=== PATIENT | male | born 1935 | race Caucasian/White ===

== ENCOUNTER 2016-03-28 17:21 | Emergency (ER) | payer MEDICARE ==
[~2016-03-28] VITALS: Ht 180.3 cm; Wt 65.0 kg
[~2016-03-28 17:21] MED LIST: AMIO200T PO; COMB0.2S LEFT EYE; DIAL800T3 PO; DILT180C56 PO; DORZ2SOL LEFT EYE; ENAL2.5T PO; FISH500C PO; LEVO50TA4 PO; METO50TA11 PO; OMEP20CA2 PO; PHOS667C5 PO; ROPI5TAB PO; WARF-23 PO
[2016-03-28 17:25] VITALS: BP 137/61; PULSE 80; RESP 20; TEMP 97.4; O2SAT 91
[2016-03-28] MEDS ORDERED: ACETAMINOPHEN/HYDROcodone 325 MG/5 MG TAB PO ONE (18:00)
--- NOTE | 2016-03-28 18:25 | PD ---
HPI Chief Complaint: Musculoskeletal Complaint Time Seen by Provider: 17:46 Travel History International Travel<30 days: No Contact w/Intl Traveler<30days: No Traveled to known affect area: No History of Present Illness HPI 80-year-old male with multiple medical issues, presents to the ER today because he states that his medial left elbow has been swelling for 2 days. He states this started on his own. He had been seen at [place] [facility] and had been told that they think it is a bursitis and that he needs to follow-up with orthopedics. However, patient states he has not been able to follow-up he adds and it is more swollen now. 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) Blood Disorders: No Heart Rhythm Problems: Yes (HX AFIB; tachy-alka) Cancer: Yes (LT EAR BASAL CELL CARCINOMA) Cardiovascular Problems: Yes (A FIB) High Cholesterol: No Chemotherapy: No Chest Pain: No Congestive Heart Failure: Yes Cerebrovascular Accident: No Diabetes: No Dialysis: Yes (MON,WED,FRI) Diminished Hearing: Yes Endocrine: No Gastrointestinal Disorders: No Genitourinary: Yes (KIDNEY FAILURE) Headaches: No Hepatitis: No Hiatal Hernia: No Hypertension: Yes Immune Disorder: No Implanted Vascular Access Dvce: Yes (DIALYSIS AV TO RIGHT UPPER ARM) Kidney Stones: No Medical other: Yes (ANEMIA) Musculoskeletal: Yes (RESTLESS LEG SYNDROME) Neurologic: No Psychiatric: No Reproductive: No Respiratory: No Immunizations Current: No Radiation Therapy: No Renal Failure: Yes Seizures: No Thyroid Disease: Yes (HYPOTHYROID, HYPERPARATHYROID) PNEUMOCCOCAL Vaccine (Year): 2010 Past Surgical History Abdominal Surgery: Yes (COLECTOMY DUE TO CANCER POLYP) AICD: No Appendectomy: Yes Arteriovenous Shunt: Yes Cardiac Surgery: Yes (ABLATION 06/09 AND 01/09, [facility] PACEM[facility]) Cholecystectomy: Yes Ear Surgery: Yes (LEFT EAR-PUS NODULE) Endocrine Surgery: No Eye Surgery: No Genitourinary Surgery: No Gynecologic Surgery: No Insulin Pump: No Joint Replacement: Yes (FEMORAL HIP RIGHT) Oral Surgery: Yes (DENTURES UPPER AND LOWER PARTIAL) Pacemaker: Yes Thoracic Surgery: Yes Other Surgery: Yes (R HIP, COLONECTOMY, R. ARM FISTULA ) Social History Alcohol Use: No Tobacco Use: No Substance Use: No Allergies-Medications (Allergen,Severity, Reaction): Coded Allergies: Clindamycin (Verified Allergy, Severe, Rash, 03/28/16) Reported Meds & Prescriptions Reported Meds & Active Scripts Active Dorzolamide Opth Drops (Dorzolamide HCl) 2% Soln 1 Drop LEFT EYE BID Combigan Opth Drops (Brimonidine-Timolol Opth Drops) 0.2-0.5% Soln 1 Drop LEFT EYE Q12HR Reported Dorzolamide Opth Drops (Dorzolamide HCl) 2% Soln 1 Drop LEFT EYE BID Combigan Opth Drops (Brimonidine-Timolol Opth Drops) 0.2-0.5% Soln 1 Drop LEFT EYE BID Phoslo (Calcium Acetate (Phosphate Binder)) 667 Mg Cap 1 Cap PO TID Fish Oil ([place]-3 Fatty Acids) 500 Mg Cap 600 Mg PO BID Omeprazole 20 Mg Cap 1 Cap PO DAILY Levothyroxine (Levothyroxine Sodium) 50 Mcg Tab 1 Tab PO DAILY Dialyvite 800 (B-Complex W/ C & Folic Acid) 1 Tab 1 Tab PO DAILY Enalapril (Enalapril Maleate) 2.5 Mg Tab 1 Tab PO DAILY Amiodarone (Amiodarone HCl) 200 Mg Tab 1 Tab PO BID Diltiazem CD 24 HR 180 Mg Caper 1 Cap PO BID Ropinirole 5 Mg Tab 2 Tab PO TID Metoprolol Succinate ER 24 HR (Metoprolol Succinate) 50 Mg Tab 0.5 Tab PO BID Warfarin 5 Mg Tab 1 Tab PO DAILY Review of Systems Except as stated in HPI: all other systems reviewed are Neg Physical Exam Narrative GENERAL: Well-nourished, well-developed elderly white male patient in no acute distress. SKIN: Warm and dry. HEAD: Normocephalic. EYES: No scleral icterus. No injection or drainage. NECK: Supple, trachea midline. CARDIOVASCULAR: Regular rate and rhythm without murmurs, gallops, or rubs. RESPIRATORY: Breath sounds equal bilaterally. No accessory muscle use. GASTROINTESTINAL: Abdomen soft, non-tender, nondistended. MUSCULOSKELETAL: No cyanosis, or edema. BACK: Nontender without obvious deformity. No CVA tenderness. Left elbow: There is notable mild fullness and tenderness on palpation at the medial left elbow. Nontender range of motion of the elbow joint. Nontender palpation of the elbow joint. However, there is point tenderness at the medial epicondyle area. No underlying fluctuance. Data Data Last Documented VS Vital Signs Date Time Temp Pulse Resp B/P Pulse Ox O2 Delivery O2 Flow Rate FiO2 03/28/16 17:25 97.4 80 20 137/61 91 Room Air Orders Acetamin-Hydrocod 325-5 Mg ([place]yer 5-325 (03/28/16 18:00) Elbow, Complete (4 Vws) (03/28/16 17:46) [facility] Medical Decision Making Medical Screen Exam Complete: Yes Emergency Medical Condition: Yes Medical Record Reviewed: Yes Interpretation(s) Last 24 hours Impressions Elbow X-Ray 03/28/16 862 Signed Impressions: Service Date/Time: Wednesday, March 28, 2016 18:13 - CONCLUSION: There is a moderate-sized elbow effusion. No definite fracture seen, but the presence of an elbow effusion has positive predictive value for radiographically occult fracture. There is also some ill-defined calcification or ossification soft tissues anterior to the distal humerus which may represent an avulsed fragment. Junior Tolliver MD Differential Diagnosis Left elbow pain, swellingarthritis versus bursitis versus tendinitis versus abscess Narrative Course X-rays did not show obvious acute fractures although cold fractures cannot be ruled out. He does have some significant edema in the area of the medial epicondyles and there is suspicion of underlying tendinitis. At this point, my plan would be to place him in a sling and give him symptomatic relief. He will need to follow-up with orthopedics. Return for any worsening in pain, or new symptoms as needed. The plan has been discussed with him and he states understanding. Diagnosis Primary Impression: PAIN IN LEFT ELBOW Referrals: Kurt Biswas Jr., MD Med/Other Pt SpecificInfo: Prescription(s) given Scripts Tramadol 50 Mg Tab50 Mg PO Q4H PRN (PAIN) #15 TAB Ref 0 Prov:Shannon Jose MD 03/28/16 Disposition: 01 DISCHARGE HOME Condition: Stable Shannon Jose MD Mar 28, 2016 18:25
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
[2016-03-28] MEDS ORDERED: TRAM50TA PO (18:57)
[2016-05-28] MEDS ORDERED: ENAL5TAB PO (11:34)
[2016-05-28] MEDS ORDERED: ALPH1CAP PO (11:34)
[2016-05-28] MEDS ORDERED: VITA250T3 PO (11:34)
[2016-05-28] MEDS ORDERED: ROPI2 PO (11:34)
== END 2016-03-28 19:27 | disposition home or self-care (01) ==
LOC: NEPA 17:21
DX: M25.522 Pain in left elbow (principal)
CPT/HCPCS: 73080; 99283

== ENCOUNTER 2016-04-20 22:54 | Emergency (ER) | payer MEDICARE ==
[~2016-04-20] VITALS: Ht 180.3 cm; Wt 63.0 kg
[~2016-04-20 22:54] MED LIST changes: +TRAM50TA PO
[2016-04-20 22:57] VITALS: BP 142/66; PULSE 59; RESP 16; TEMP 98.2; O2SAT 98
[2016-05-28] MEDS ORDERED: ROPI2 PO (11:34)
[2016-05-28] MEDS ORDERED: ENAL5TAB PO (11:34)
[2016-05-28] MEDS ORDERED: ALPH1CAP PO (11:34)
[2016-05-28] MEDS ORDERED: VITA250T3 PO (11:34)
== END 2016-04-21 00:17 | disposition left against medical advice (07) ==
LOC: NED 22:54
DX: R68.89 Other general symptoms and signs (principal)
CPT/HCPCS: 99281

== ENCOUNTER → 2016-06-29 | Outpatient (CLI) | payer MEDICARE ==
[~2016-06-29] MED LIST changes: +ALPH1CAP PO; -ENAL2.5T PO; +ENAL5TAB PO; +ROPI2 PO; -ROPI5TAB PO; +VITA250T3 PO
[2016-06-29 12:11] LABS: HEMATOCRIT 32.3 % (39.0-51.0); MEAN CORPUSCULAR HEMOGLOBIN 32.8 PG (27.0-34.0); MEAN CORPUSCULAR HGB CONC 32.8 % (32.0-36.0); PLATELET COUNT 174 TH/MM3 (150-450); RED BLOOD COUNT 3.23 MIL/MM3 (4.50-5.90); RED CELL DISTRIBUTION WIDTH 15.1 % (11.6-17.2); REVIEW FLAG FINAL; WHITE BLOOD COUNT 5.7 TH/MM3 (4.0-11.0)
[2016-06-29 12:19] LABS: ANION GAP 10 MEQ/L (5-15); AST (GOT) 27 U/L (15-37); BICARBONATE 29.3 MEQ/L (21.0-32.0); BLOOD UREA NITROGEN 16 MG/DL (7-18); CHLORIDE 100 MEQ/L (98-107); GLUCOSE,FASTING 80 MG/DL (74-99); POTASSIUM 3.1 MEQ/L (3.5-5.1); SODIUM (NA) 139 MEQ/L (136-145)
[2016-06-29 12:30] LABS: ALKALINE PHOSPHATASE 130 U/L (45-117); ALT (GPT) 22 U/L (12-78); GLOMERULAR FILTRATION RATE 21 ML/MIN (>89); HDL CHOLESTEROL 51.3 MG/DL (40.0-60.0); LDL CHOLESTEROL 88 MG/DL (0-99); TOTAL BILIRUBIN ADULT 0.5 MG/DL (0.2-1.0)
== END ==
LOC: ELAB 10:29
PROVIDERS: ATTEND Family Medicine
DX: I48.91 Unspecified atrial fibrillation (principal); I12.0 Hypertensive chronic kidney disease with stage 5 chronic kidney disease or end stage renal disease; N18.5 Chronic kidney disease, stage 5; D63.1 Anemia in chronic kidney disease; E03.9 Hypothyroidism, unspecified; K76.0 Fatty (change of) liver, not elsewhere classified; E21.3 Hyperparathyroidism, unspecified; Z79.01 Long term (current) use of anticoagulants
CPT/HCPCS: 36415; 80053; 80061; 83970; 84443; 85027

== ENCOUNTER → 2016-09-07 | Outpatient (CLI) | payer MEDICARE | LOC: ELAB 10:55 | PROVIDERS: ATTEND Orthopaedic Surgery Orthopaedic Surgery of the Spine | DX: Z13.820 Encounter for screening for osteoporosis (principal) | CPT/HCPCS: 36415; 82306; 82310; 84100 ==

== ENCOUNTER 2016-11-10 08:19 | Emergency (ER) | payer MEDICARE ==
[~2016-11-10] VITALS: Ht 182.9 cm; Wt 67.0 kg
[~2016-11-10 08:19] MED LIST changes: +CALC1CAP PO; +CARD180C5 PO; -DILT180C56 PO; -PHOS667C5 PO
[2016-11-10 08:24] VITALS: BP 157/72; PULSE 81; RESP 17; TEMP 97.6; O2SAT 97
[2016-11-10 09:19] LABS: BICARBONATE 25.5 MEQ/L (21.0-32.0); POTASSIUM 4.2 MEQ/L (3.5-5.1)
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
--- NOTE | 2016-11-11 22:02 | EKG ---
Date Performed: 11/10/2016 Time Performed: 09:21:29 PTAGE: 80 years EKG: ELECTRONIC VENTRICULAR PACEMAKER ABNORMAL RHYTHM ECG PREVIOUS TRACING : 02/21/2015 08.09 Compared to the previous tracing paced rhythm present DOCTOR: Adrian Freeman Interpretating Date/Time 11/11/2016 22:02:13
== END 2016-11-10 10:04 | disposition home or self-care (01) ==
LOC: NEPC 08:19
DX: I13.2 Hypertensive heart and chronic kidney disease with heart failure and with stage 5 chronic kidney disease, or end stage renal disease (principal); N18.6 End stage renal disease; I50.9 Heart failure, unspecified; Z99.2 Dependence on renal dialysis; R94.31 Abnormal electrocardiogram [ECG] [EKG]; Z79.01 Long term (current) use of anticoagulants; D64.9 Anemia, unspecified
CPT/HCPCS: 80048; 93005; 99284

== ENCOUNTER 2017-02-14 01:36 | Emergency (ER) | payer MEDICARE ==
[~2017-02-14] VITALS: Ht 177.8 cm; Wt 65.9 kg
[~2017-02-14 01:36] MED LIST changes: -ALPH1CAP PO; +ALPH200C4 PO; +METO1TAB9 PO; -METO50TA11 PO
[2017-02-14 01:40] VITALS: BP 129/68; PULSE 109; RESP 18; TEMP 98.9; O2SAT 99
[2017-02-14] MEDS ORDERED: SULFAMETHOXAZOLE-TRIMETHOPRIM DS 800-160 MG TAB PO ONE (02:15)
[2017-02-14] MEDS ORDERED: DILTIAZEM HCL 60 MG TAB PO ONE (02:15)
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
[2017-02-14] MEDS ORDERED: BACT800T5 PO (02:44)
[2017-02-14 02:49] VITALS: PULSE 88; RESP 18; O2SAT 97
== END 2017-02-14 03:11 | disposition home or self-care (01) ==
LOC: NEPC 01:36
DX: L03.113 Cellulitis of right upper limb (principal); R00.0 Tachycardia, unspecified; I48.2 Chronic atrial fibrillation; D64.9 Anemia, unspecified; I48.91 Unspecified atrial fibrillation; I13.0 Hypertensive heart and chronic kidney disease with heart failure and stage 1 through stage 4 chronic kidney disease, or unspecified chronic kidney disease; I50.9 Heart failure, unspecified; N18.9 Chronic kidney disease, unspecified; E03.9 Hypothyroidism, unspecified
CPT/HCPCS: 99283

== ENCOUNTER 2017-03-11 09:20 | Emergency (ER) | payer MEDICARE ==
[~2017-03-11] VITALS: Ht 182.9 cm; Wt 70.0 kg
[~2017-03-11 09:20] MED LIST changes: +BACT800T5 PO; -TRAM50TA PO
[2017-03-11 09:22] VITALS: BP 154/57; PULSE 118; RESP 20; TEMP 99.3; O2SAT 99
--- NOTE | 2017-03-11 10:05 | PD ---
HPI Chief Complaint: Injury Time Seen by Provider: 09:42 Travel History International Travel<30 days: No Contact w/Intl Traveler<30days: No Traveled to known affect area: No History of Present Illness HPI 81-year-old male here with left foot and ankle pain after twisting injury. Patient reports he awoke at 4 AM with left foot pain after he believes he had a minor twisting injury the day before. He denies falling or loss of consciousness. He denies paresthesia or weakness of the extremity. He has pain with weightbearing and palpation of the dorsal aspect of the foot and lateral malleolus. Pain severity is moderate. Slightly relieved with rest. No pain improvement with [id number] Tylenol. He denies headache, visual changes, neck pain, chest pain, shortness of breath, abdominal pain. PFSH Past Medical History Narrative Medical Significant for A. 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) Blood Disorders: No Heart Rhythm Problems: Yes (HX AFIB; tachy-alka) Cancer: Yes (LT EAR BASAL CELL CARCINOMA) Cardiovascular Problems: Yes (A FIB, ) High Cholesterol: No Chemotherapy: No Chest Pain: No Congestive Heart Failure: Yes Cerebrovascular Accident: No Diabetes: No Dialysis: Yes (MON,WED,FRI) Diminished Hearing: Yes Endocrine: No Gastrointestinal Disorders: No Genitourinary: Yes (KIDNEY FAILURE) Headaches: No Hepatitis: No Hiatal Hernia: No Hypertension: Yes Immune Disorder: No Implanted Vascular Access Dvce: Yes (DIALYSIS AV TO RIGHT UPPER ARM) Kidney Stones: No Musculoskeletal: Yes (RESTLESS LEG SYNDROME) Neurologic: No Psychiatric: No Reproductive: No Respiratory: No Immunizations Current: No Radiation Therapy: No Renal Failure: Yes Seizures: No Thyroid Disease: Yes (HYPOTHYROID, HYPERPARATHYROID) PNEUMOCCOCAL Vaccine (Year): 2010 Past Surgical History Abdominal Surgery: Yes (COLECTOMY DUE TO CANCER POLYP) AICD: No Appendectomy: Yes Arteriovenous Shunt: Yes Cardiac Surgery: Yes (ABLATION 06/09 AND 01/09, [facility]) Cholecystectomy: Yes Ear Surgery: Yes (LEFT EAR-PUS NODULE) Endocrine Surgery: No Eye Surgery: No Genitourinary Surgery: No Gynecologic Surgery: No Insulin Pump: No Joint Replacement: Yes (FEMORAL HIP RIGHT) Oral Surgery: Yes (DENTURES UPPER AND LOWER PARTIAL) Pacemaker: Yes Thoracic Surgery: Yes Other Surgery: Yes (R HIP, COLONECTOMY, R. ARM FISTULA ) Social History Alcohol Use: No Tobacco Use: No Substance Use: No Allergies-Medications (Allergen,Severity, Reaction): Coded Allergies: clindamycin (Verified Allergy, Severe, Rash, 02/14/17) ciprofloxacin (Verified Allergy, Unknown, 02/14/17) Reported Meds & Prescriptions Reported Meds & Active Scripts Active [place] (Hydrocodone-Acetaminophen) 5 Mg-325 Mg Tab 1 Tab PO Q8HR PRN Bactrim DS (Sulfamethoxazole-Trimethoprim) 800-160 Mg Tab 1 Tab PO BID Dorzolamide Opth Drops (Dorzolamide HCl) 2% Soln 1 Drop LEFT EYE BID Combigan Opth Drops (Brimonidine-Timolol Opth Drops) 0.2-0.5% Soln 1 Drop LEFT EYE BID Reported Calcium Acetate (Phosphate Binder) 667 Mg Cap 1 Cap PO TID Cardizem CD 24 HR (Diltiazem CD 24 HR) 180 Mg Caper 180 Mg PO BID Vitamin C (Ascorbic Acid) 250 Mg Tab 300 Mg PO Alpha Lipoic Acid 200 Mg Cap 200 Mg PO DIRECTED Requip (Ropinirole HCl) 2 Mg Tab 2 Mg PO TID Enalapril (Enalapril Maleate) 5 Mg Tab 5 Mg PO DAILY Dorzolamide Opth Drops (Dorzolamide HCl) 2% Soln 1 Drop LEFT EYE BID Combigan Opth Drops (Brimonidine-Timolol Opth Drops) 0.2-0.5% Soln 1 Drop LEFT EYE BID Fish Oil (Aldrich-3 Fatty Acids) 500 Mg Cap 600 Mg PO BID Omeprazole 20 Mg Cap 1 Cap PO DAILY Levothyroxine (Levothyroxine Sodium) 50 Mcg Tab 1 Tab PO DAILY Dialyvite 800 (B-Complex W/ C & Folic Acid) 1 Tab 1 Tab PO DAILY Amiodarone (Amiodarone HCl) 200 Mg Tab 1 Tab PO BID Metoprolol Succinate ER 24 HR (Metoprolol Succinate) 50 Mg Tab 0.5 Tab PO BID Warfarin 5 Mg Tab 1 Tab PO DAILY Physical Exam Narrative GENERAL: Alert 81-year-old male. SKIN: Warm and dry. HEAD: Normocephalic. Atraumatic EYES: Pupils equal, round, reactive to light. EOMs intact.. No injection or drainage. NECK: Supple, trachea midline. No cervical midline tenderness. CARDIOVASCULAR: Regular rate and rhythm. Heart rate 94 RESPIRATORY: Breath sounds equal bilaterally. No accessory muscle use. GASTROINTESTINAL: Abdomen soft, non-tender, nondistended. MUSCULOSKELETAL: No cyanosis. Left lower extremity: Tenderness and mild swelling to the dorsal aspect of the left foot and lateral malleolus. No deformity. 2+ dorsal pedis pulse. Sensation. Brisk cap refill. BACK: Nontender without obvious deformity. No CVA tenderness. Data Data Last Documented VS Vital Signs Date Time Temp Pulse Resp B/P (MAP) Pulse Ox O2 Delivery O2 Flow Rate FiO2 03/11/17 09:22 99.3 118 20 154/57 (89) 99 Room Air Orders Orders Foot, Complete ([id number]) (03/11/17 ) Ankle, Complete (Osh6mox) (03/11/17 ) Acetamin-Hydrocod 325-5 Mg ([place] 5-325 (03/11/17 10:30) Ed Discharge Order (03/11/17 11:12) Jonathan Bandage (03/11/17 11:12) [facility] Medical Decision Making Medical Screen Exam Complete: Yes Emergency Medical Condition: Yes Differential Diagnosis Ankle sprain, midfoot sprain, fracture, contusion Narrative Course 81-year-old male here with left ankle and foot pain after twisting injury yesterday. The extremity is neurovascularly intact. X-rays are negative for fracture. Jonathan wrap applied to left ankle. Patient was given hydrocodone for pain. He was ambulatory with a walker. CORIN Vazquez spoke with patient's caseworker regarding increasing the frequency of home health. Diagnosis Primary Impression: Ankle pain Qualified Codes: M25.572 - Pain in left ankle and joints of left foot Additional Instructions: Ice and elevate the extremity. Hydrocodone as needed for pain. Use the walker for ambulating. Home health for be contacting you to discuss increasing the amount of visits per week. Return if he developed new or worsening symptoms Scripts Walker with Front Wheels (Walker with Front Wheels) 1 Mis Mis EA .ROUTE DIRECTED, #1 0 Refills Prov: Martha Henry 03/11/17 Hydrocodone-Acetaminophen ([place]) 5 Mg-325 Mg Tab 1 TAB PO Q8HR Y for PAIN, #10 TAB 0 Refills Prov: Rhett Murray MD 03/11/17 Martha Henry Mar 11, 2017 10:05
--- NOTE | 2017-03-11 10:15 | RADRPT ---
EXAM DATE/TIME: 03/11/2017 09:53 [facility] COMPARISON: No previous studies available for comparison. INDICATIONS : Fall. Left lateral ankle and dorsal foot pain. MEDICAL HISTORY : Left elbow bursitis SURGICAL HISTORY : None. ENCOUNTER: Initial ACUITY: 1 day PAIN SCORE: 7/10 LOCATION: Left lateral ankle FINDINGS: Three view exam was performed of the left ankle. The bony structures are in normal alignment. No ev idence of fracture, dislocation, or soft tissue swelling. The ankle mortise is intact. No radiopaqu e foreign bodies are seen. There is diffuse osteopenia. Extensive vascular calcifications are present .. CONCLUSION: Negative trauma study. Dez Padilla MD on March 11, 2017 at 10:12 Board Certified Radiologist. This report was verified electronically.
--- NOTE | 2017-03-11 10:17 | RADRPT ---
EXAM DATE/TIME: 03/11/2017 09:58 [facility] COMPARISON: No previous studies available for comparison. INDICATIONS : Fall. Left lateral ankle and dorsal foot pain. MEDICAL HISTORY : Left elbow bursitis SURGICAL HISTORY : None. ENCOUNTER: Initial ACUITY: 1 day PAIN SCORE: 7/10 LOCATION: Left foot, dorsal FINDINGS: AP, lateral and oblique views of the left foot were obtained and demonstrate diffuse osteopenia. Ther e is no acute fracture or malalignment. Vascular calcifications are present. There are mild posterior lytic changes. CONCLUSION: Negative trauma study.. Dez Padilla MD on March 11, 2017 at 10:13 Board Certified Radiologist. This report was verified electronically.
[2017-03-11] MEDS ORDERED: NORC5TAB PO (10:19)
[2017-03-11] MEDS ORDERED: ACETAMINOPHEN/HYDROcodone 325 MG/5 MG TAB PO ONE (10:30)
[2017-03-11] MEDS ORDERED: WALKER WHEELS/F1 MIS (11:37)
== END 2017-03-11 12:34 | disposition home or self-care (01) ==
LOC: NEPK 09:20
DX: S99.922A Unspecified injury of left foot, initial encounter (principal); I48.91 Unspecified atrial fibrillation; E03.9 Hypothyroidism, unspecified; I13.2 Hypertensive heart and chronic kidney disease with heart failure and with stage 5 chronic kidney disease, or end stage renal disease; H91.90 Unspecified hearing loss, unspecified ear; I50.9 Heart failure, unspecified; N18.6 End stage renal disease; Z99.2 Dependence on renal dialysis; Z85.828 Personal history of other malignant neoplasm of skin
CPT/HCPCS: 73610; 73630; 97162; 99283; G8987; G8988

== ENCOUNTER 2017-05-15 06:08 | Emergency (ER) | payer MEDICARE ==
[~2017-05-15 06:08] MED LIST changes: +NORC5TAB PO; +WALKER WHEELS/F1 MIS
== END 2017-05-15 06:10 | disposition left against medical advice (07) ==
LOC: NED 06:08
DX: Z04.8 Encounter for examination and observation for other specified reasons (principal); Z53.21 Procedure and treatment not carried out due to patient leaving prior to being seen by health care provider
CPT/HCPCS: 99281

== ENCOUNTER 2017-07-10 01:20 | Emergency (ER) | payer MEDICARE ==
[~2017-07-10] VITALS: Ht 182.9 cm; Wt 65.0 kg
[2017-07-10 01:24] VITALS: BP 113/56; PULSE 80; RESP 18; TEMP 97.5; O2SAT 98
--- NOTE | 2017-07-10 01:46 | PD ---
HPI Chief Complaint: Skin Problem Time Seen by Provider: 01:35 Travel History International Travel<30 days: No Contact w/Intl Traveler<30days: No Traveled to known affect area: No History of Present Illness HPI 81-year-old male complains of swelling in the left hand after a Jonathan bandage was wrapped about the left elbow following an incision and drainage today at the orthopedic office. Onset gradual. Timing constant. Severity moderate. He believes Jonathan bandage was too tight. History Past Medical Histgory Hx Cancer: Yes (LT EAR BASAL CELL CARCINOMA) Hx Chemotherapy: No Hx Radiation Therapy: No Social History Alcohol Use: No Tobacco Use: No Allergies-Medications (Allergen,Severity, Reaction): Coded Allergies: clindamycin (Verified Allergy, Severe, Rash, 07/10/17) ciprofloxacin (Verified Allergy, Unknown, 07/10/17) Reported Meds & Prescriptions Reported Meds & Active Scripts Active Walker with Front Wheels (Device) 1 Mis Mis Ea .ROUTE DIRECTED [place] (Hydrocodone-Acetaminophen) 5 Mg-325 Mg Tab 1 Tab PO Q8HR PRN Bactrim DS (Sulfamethoxazole-Trimethoprim) 800-160 Mg Tab 1 Tab PO BID Dorzolamide Opth Drops (Dorzolamide HCl) 2% Soln 1 Drop LEFT EYE BID Combigan Opth Drops (Brimonidine-Timolol Opth Drops) 0.2-0.5% Soln 1 Drop LEFT EYE BID Reported Calcium Acetate (Phosphate Binder) 667 Mg Cap 1 Cap PO TID Cardizem CD 24 HR (Diltiazem CD 24 HR) 180 Mg Caper 180 Mg PO BID Vitamin C (Ascorbic Acid) 250 Mg Tab 300 Mg PO Alpha Lipoic Acid 200 Mg Cap 200 Mg PO DIRECTED Requip (Ropinirole HCl) 2 Mg Tab 2 Mg PO TID Enalapril (Enalapril Maleate) 5 Mg Tab 5 Mg PO DAILY Dorzolamide Opth Drops (Dorzolamide HCl) 2% Soln 1 Drop LEFT EYE BID Combigan Opth Drops (Brimonidine-Timolol Opth Drops) 0.2-0.5% Soln 1 Drop LEFT EYE BID Fish Oil ([place]-3 Fatty Acids) 500 Mg Cap 600 Mg PO BID Omeprazole 20 Mg Cap 1 Cap PO DAILY Levothyroxine (Levothyroxine Sodium) 50 Mcg Tab 1 Tab PO DAILY Dialyvite 800 (B-Complex W/ C & Folic Acid) 1 Tab 1 Tab PO DAILY Amiodarone (Amiodarone HCl) 200 Mg Tab 1 Tab PO BID Metoprolol Succinate ER 24 HR (Metoprolol Succinate) 50 Mg Tab 0.5 Tab PO BID Warfarin 5 Mg Tab 1 Tab PO DAILY Review of Systems Except as stated in HPI: all other systems reviewed are Neg General / Constitutional: No: Fever Physical Exam Narrative GENERAL: 81-year-old male pleasant well-nourished well-developed Vital Signs Date Time Temp Pulse Resp B/P (MAP) Pulse Ox O2 Delivery O2 Flow Rate FiO2 07/10/17 01:24 97.5 80 18 113/56 (75) 98 SKIN: Warm and dry. HEAD: Atraumatic. Normocephalic. EYES: Pupils equal and round. No scleral icterus. No injection or drainage. ENT: No nasal bleeding or discharge. Mucous membranes pink and moist. NECK: Trachea midline. No JVD. CARDIOVASCULAR: Regular rate and rhythm. RESPIRATORY: No accessory muscle use. Clear to auscultation. Breath sounds equal bilaterally. GASTROINTESTINAL: Abdomen soft, non-tender, nondistended. Hepatic and splenic margins not palpable. MUSCULOSKELETAL: Left upper extremity has an Jonathan bandage. Left hand is slightly edematous compared to the right. Handgrip is equal. 2+ radial artery pulse present bilaterally. There is a sterile dressing about the left elbow. There is no significant tenderness warmth or erythema about the extremity distal to the Jonathan bandage. NEUROLOGICAL: Awake and alert. No obvious cranial nerve deficits. Motor grossly within normal limits. Five out of 5 muscle strength in the arms and legs. Normal speech. PSYCHIATRIC: Appropriate mood and affect; insight and judgment normal. Data Data Last Documented VS Vital Signs Date Time Temp Pulse Resp B/P (MAP) Pulse Ox O2 Delivery O2 Flow Rate FiO2 07/10/17 01:24 97.5 80 18 113/56 (75) 98 MDM Medical Screen Exam Complete: Yes Emergency Medical Condition: Yes Plan A medical screening exam was performed: At the time of evaluation the presenting medical condition was determined not to be of an emergent nature. The patient was given the option of receiving additional care, but declined. Patient was given options for additional community resources from which to obtain care. The Patient Has Been advised to seek medical attention for their presenting complaint. The patient has been advised to return to the ER at any time if an emergent condition develops. An Jonathan bandage was placed to tied around the left upper extremity leading to decreased venous return from the pressure. Jonathan bandage was listed at bedside by the nurse. In this scenario the patient does not have a medical emergency. Furthermore he refuses workup and at this point AMA is considered an appropriate. Primary Impression: Encounter for medical screening examination Disposition: 01 DISCHARGE HOME Condition: Stable Paulino Sibley MD July 10, 2017 01:46
== END 2017-07-10 01:57 | disposition left against medical advice (07) ==
LOC: NEPC 01:20
DX: M79.89 Other specified soft tissue disorders (principal)
CPT/HCPCS: 99281

== ENCOUNTER 2017-07-21 14:54 | Inpatient (IN) | payer MEDICARE ==
[~2017-07-21] VITALS: Ht 182.9 cm; Wt 70.9 kg
[2017-07-21 15:09] VITALS: BP 67/42; PULSE 76; RESP 16; TEMP 97.2; O2SAT 95
[2017-07-21] MEDS ORDERED: SODIUM CHLOR 0.9% 1000 ML INJ 1,000 ML IV SCH ×2 (15:25→19:04)
[2017-07-21 15:28] VITALS: BP 92/50; PULSE 74; RESP 19; O2SAT 97
[2017-07-21] MEDS ORDERED: LIDOCAINE 1%/EPINEPHrine 1:100,000 SOLN 50 ML VIAL INFIL ONE (15:30)
--- NOTE | 2017-07-21 15:36 | PD ---
HPI Chief Complaint: Skin Problem Time Seen by Provider: 15:25 Travel History International Travel<30 days: No Contact w/Intl Traveler<30days: No Traveled to known affect area: No History of Present Illness HPI 81-year-old male presents for evaluation of posterior left elbow pain and swelling and redness. He underwent incision and drainage of left olecranon bursitis on July 09. This was performed at Dr. Gonzalez' office. He reports over the past several days he has had increased pain and swelling to the posterior left elbow joint. Pain is mild, aggravated by palpation. Denies any fevers, chills, lightheadedness, dizziness, chest pain or shortness of breath. It appears that the synovial fluid culture has grown out Staphylococcus Lugdensis with zazueta sensitivity. The patient underwent dialysis today and it was recommended that he come here for further evaluation of his posterior left elbow swelling. His only other complaint at this time is of hunger. PFSH Past Medical History Hx Anticoagulant Therapy: Yes Anemia: Yes Arthritis: Yes Atrial Fibrillation: Yes Autoimmune Disease: Yes Blood Disorders: No Heart Rhythm Problems: Yes Cancer: Yes (LT EAR BASAL CELL CARCINOMA) Cardiovascular Problems: Yes (A FIB, ) High Cholesterol: No Chemotherapy: No Chest Pain: No Congestive Heart Failure: Yes Cerebrovascular Accident: No Diabetes: No Dialysis: Yes (MON,WED,WED) Diminished Hearing: Yes Endocrine: No Gastrointestinal Disorders: No Genitourinary: Yes (KIDNEY FAILURE) Headaches: No Hepatitis: No Hiatal Hernia: No Hypertension: Yes Immune Disorder: No Implanted Vascular Access Dvce: Yes (DIALYSIS AV TO RIGHT UPPER ARM) Kidney Stones: No Medical other: Yes (ANEMIA) Musculoskeletal: Yes (RESTLESS LEG SYNDROME) Neurologic: No Psychiatric: No Reproductive: No Respiratory: No Immunizations Current: No Migraines: No Radiation Therapy: No Renal Failure: Yes Seizures: No Thyroid Disease: Yes (HYPOTHYROID, HYPERPARATHYROID) Tetanus Vaccination: > 5 Years PNEUMOCCOCAL Vaccine (Year): 2010 Past Surgical History Abdominal Surgery: Yes (COLECTOMY DUE TO CANCER POLYP) AICD: No Appendectomy: Yes Arteriovenous Shunt: Yes Cardiac Surgery: Yes (ABLATION 06/09 AND 01/09, [facility]) Cholecystectomy: Yes Ear Surgery: Yes (LEFT EAR-PUS NODULE) Endocrine Surgery: No Eye Surgery: No Genitourinary Surgery: No Gynecologic Surgery: No Insulin Pump: No Joint Replacement: Yes (FEMORAL HIP RIGHT) Oral Surgery: Yes (DENTURES UPPER AND LOWER PARTIAL) Pacemaker: Yes Thoracic Surgery: Yes Other Surgery: Yes (R HIP, COLECTOMY, R. ARM FISTULA ) Social History Alcohol Use: No Tobacco Use: No Substance Use: No Allergies-Medications (Allergen,Severity, Reaction): Coded Allergies: clindamycin (Verified Allergy, Severe, Rash, 07/21/17) ciprofloxacin (Verified Allergy, Unknown, 07/21/17) Reported Meds & Prescriptions Reported Meds & Active Scripts Active Walker with Front Wheels (Device) 1 Mis Mis Ea .ROUTE DIRECTED Reported Calcium Acetate (Phosphate Binder) 667 Mg Cap 1 Cap PO TID Cardizem CD 24 HR (Diltiazem CD 24 HR) 180 Mg Caper 180 Mg PO BID Vitamin C (Ascorbic Acid) 250 Mg Tab 300 Mg PO Alpha Lipoic Acid 200 Mg Cap 200 Mg PO DIRECTED Requip (Ropinirole HCl) 2 Mg Tab 2 Mg PO TID Enalapril (Enalapril Maleate) 5 Mg Tab 5 Mg PO DAILY Dorzolamide Opth Drops (Dorzolamide HCl) 2% Soln 1 Drop LEFT EYE BID Combigan Opth Drops (Brimonidine-Timolol Opth Drops) 0.2-0.5% Soln 1 Drop LEFT EYE BID Omeprazole 20 Mg Cap 1 Cap PO DAILY Levothyroxine (Levothyroxine Sodium) 50 Mcg Tab 1 Tab PO DAILY Dialyvite 800 (B-Complex W/ C & Folic Acid) 1 Tab 1 Tab PO DAILY Amiodarone (Amiodarone HCl) 200 Mg Tab 1 Tab PO BID Metoprolol Succinate ER 24 HR (Metoprolol Succinate) 50 Mg Tab 0.5 Tab PO BID Warfarin 5 Mg Tab 1 Tab PO DAILY Review of Systems Except as stated in HPI: all other systems reviewed are Neg Physical Exam Narrative GENERAL: Well-developed well-nourished male in no acute distress. He was hypotensive in triage. SKIN: Warm and dry. HEAD: Atraumatic. Normocephalic. EYES: Pupils equal and round. No scleral icterus. No injection or drainage. ENT: No nasal bleeding or discharge. Mucous membranes pink and moist. NECK: Trachea midline. No JVD. CARDIOVASCULAR: Regular rate and rhythm. No murmur appreciated. RESPIRATORY: No accessory muscle use. Clear to auscultation. Breath sounds equal bilaterally. GASTROINTESTINAL: Abdomen soft, non-tender, nondistended. Hepatic and splenic margins not palpable. MUSCULOSKELETAL: Posterior left elbow swelling erythema with an area of excoriation in the posterior left elbow. Left elbow range of motion is preserved. Right upper extremity fistula in place with palpable thrill. NEUROLOGICAL: Awake and alert. No obvious cranial nerve deficits. Motor grossly within normal limits. Normal speech. Data Data Last Documented VS Vital Signs Date Time Temp Pulse Resp B/P (MAP) Pulse Ox O2 Delivery O2 Flow Rate FiO2 07/21/17 19:03 89 16 79/42 (54) 95 07/21/17 15:28 Room Air 07/21/17 15:09 97.2 Orders Orders Lidocai-Epi 1%-1:100,000 Inj (Xylocaine- (07/21/17 15:30) Sepsis Workup Initiated (07/21/17 ) Complete Blood Count With Diff (07/21/17 15:25) Comprehensive Metabolic Panel (07/21/17 15:25) Prothrombin Time / Inr (Pt) (07/21/17 15:25) Act Partial Throm Time (Ptt) (07/21/17 15:25) Lactic Acid Sepsis Protocol (07/21/17 15:25) Blood Culture (07/21/17 15:25) Wound Culture And Gram Stain (07/21/17 15:25) Elbow, Complete (4 Vws) (07/21/17 ) Sodium Chlor 0.9% 1000 Ml Inj (Ns 1000 M (07/21/17 15:25) Vancomycin Inj (Vancomycin Inj) (07/21/17 16:15) Diet Renal (07/21/17 Dinner) Electrocardiogram (07/21/17 ) Dextrose 50% In Deonna (Syr) Inj (D50w (Syr (07/21/17 19:00) Calcium Gluconate Inj (Calcium Gluconate (07/21/17 19:00) Potassium Chloride (Kcl) (07/21/17 19:00) Potassium Chlor 20 Meq Premix (Kcl 20 Me (07/21/17 19:00) Potassium Chloride (Kcl) (07/21/17 19:00) Sodium Chlor 0.9% 1000 Ml Inj (Ns 1000 M (07/21/17 19:04) I-Stat Profile (07/21/17 19:15) Calcium (07/21/17 19:45) Admit Order (Ed Use Only) (07/21/17 19:51) Labs Laboratory Tests Test 07/21/17 13:55 07/21/17 16:00 07/21/17 17:34 07/21/17 18:57 Lactic Acid Level 2.5 mmol/L 2.0 mmol/L White Blood Count 7.2 TH/MM3 Red Blood Count 4.44 MIL/MM3 Hemoglobin 14.3 GM/DL Hematocrit 43.1 % Mean Corpuscular Volume 97.1 FL Mean Corpuscular Hemoglobin 32.2 PG Mean Corpuscular Hemoglobin Concent 33.1 % Red Cell Distribution Width 15.6 % Platelet Count 224 TH/MM3 Mean Platelet Volume 7.2 FL Neutrophils (%) (Auto) 72.5 % Lymphocytes (%) (Auto) 10.5 % Monocytes (%) (Auto) 14.0 % Eosinophils (%) (Auto) 1.9 % Basophils (%) (Auto) 1.1 % Neutrophils # (Auto) 5.2 TH/MM3 Lymphocytes # (Auto) 0.8 TH/MM3 Monocytes # (Auto) 1.0 TH/MM3 Eosinophils # (Auto) 0.1 TH/MM3 Basophils # (Auto) 0.1 TH/MM3 CBC Comment DIFF FINAL Differential Comment Prothrombin Time 39.3 SEC Prothromb Time International Ratio 3.9 RATIO Activated Partial Thromboplast Time 42.8 SEC Blood Urea Nitrogen 17 MG/DL Creatinine 1.75 MG/DL Random Glucose 41 MG/DL Total Protein 4.1 GM/DL Albumin 1.4 GM/DL Calcium Level LESS THAN 5.0 MG/DL Alkaline Phosphatase 50 U/L Aspartate Amino Transf (AST/SGOT) 11 U/L Alanine Aminotransferase (ALT/SGPT) 9 U/L Total Bilirubin 0.3 MG/DL Sodium Level 151 MEQ/L Potassium Level 2.2 MEQ/L Chloride Level 123 MEQ/L Carbon Dioxide Level 19.2 MEQ/L Anion Gap 9 MEQ/L Estimat Glomerular Filtration Rate 37 ML/MIN Protein Corrected Calcium 6.2 MG/DL Test 07/21/17 19:20 Bedside Hemoglobin 12.9 G/DL Bedside Hematocrit 38.0 % Bedside Sodium 142 MMOL/L Bedside Potassium 3.4 MMOL/L Bedside Chloride 103 MMOL/L Bedside Blood Urea Nitrogen 24 MG/DL Bedside Creatinine 3.4 MG/DL Bedside Glucose 121 MG/DL Calcium Level 7.7 MG/DL MDM Medical Decision Making Medical Screen Exam Complete: Yes Emergency Medical Condition: Yes Medical Record Reviewed: Yes Differential Diagnosis Septic olecranon bursitis, septic arthritis, cellulitis Narrative Course The patient appears to have an infected olecranon bursitis. This was recently drained. I discussed with Beatris Vidal PA-C pediatric oncology nurse for Dr. Gonzalez reports that the patient was initially prescribed CiproFloxin which was then changed to clindamycin. The patient reports that he has not been taking any antibiotics. IV vancomycin administered. CBC is unremarkable. Lactic acid is elevated at 2.5 and the patient was hypotensive when he initially arrived. At this point time the plan would be to admit the patient for IV antibiotics, orthopedics and a consult to during his stay. I discussed the case again with Beatris Vidal and Dr. Gonzalez will consult, the patient will be evaluated in the morning, npo after midnight. The CMP was sent 3 times. Eventually was resulted with an elevated sodium chloride but low potassium, glucose, calcium, AST, ALT, total protein and albumin suspicious for dilution with normal saline. I-STAT was obtained which reveals a potassium of 3.4, sodium of 142, chloride 103, BUN 24, creatinine 3.4 , glucose 121. Likely the calcium result is spurious and therefore repeat calcium has been ordered. Initially ordered calcium, potassium, glucose supplementation but these were all canceled and not administered. The patient will be admitted for further treatment of the olecranon bursitis, lactic acidosis. Diagnosis Primary Impression: Infection of left olecranon bursa Additional Impressions: Supratherapeutic INR Lactic acidosis Admitting Information Admitting Physician Requests: Abdulaziz Ríos July 21, 2017 15:36
[2017-07-21] MEDS ORDERED: VANCOMYCIN INJ 1,000 MG in SODIUM CHLOR 0.9% 250 ML INJ 250 ML IV ONE (16:15)
[2017-07-21 16:29] LABS: AUTOMATED NEUTROPHIL # 5.2 TH/MM3 (1.8-7.7); BASOPHIL # 0.1 TH/MM3 (0-0.2); BASOPHIL % 1.1 % (0.0-2.0); EOSINOPHIL # 0.1 TH/MM3 (0-0.4); EOSINOPHIL % 1.9 % (0.0-4.0); HEMATOCRIT 43.1 % (39.0-51.0); HEMOGLOBIN 14.3 GM/DL (13.0-17.0); LYMPH % 10.5 % (9.0-44.0); LYMPHOCYTE # 0.8 TH/MM3 (1.0-4.8); MEAN CELL VOLUME 97.1 FL (80.0-100.0); MEAN CORPUSCULAR HEMOGLOBIN 32.2 PG (27.0-34.0); MEAN CORPUSCULAR HGB CONC 33.1 % (32.0-36.0); MEAN PLATELET VOLUME 7.2 FL (7.0-11.0); NEUT % 72.5 % (16.0-70.0); PLATELET COUNT 224 TH/MM3 (150-450); RED BLOOD COUNT 4.44 MIL/MM3 (4.50-5.90); RED CELL DISTRIBUTION WIDTH 15.6 % (11.6-17.2); WHITE BLOOD COUNT 7.2 TH/MM3 (4.0-11.0)
[2017-07-21 16:31] LABS: LACTIC ACID SEPSIS PROTOCOL 2.5 mmol/L (0.4-2.0)
[2017-07-21 16:46] LABS: INTERNATIONAL NORMALIZED RATIO 3.9 RATIO; PROTHROMBIN TIME - PATIENT 39.3 SEC (9.8-11.6)
--- NOTE | 2017-07-21 16:47 | RADRPT ---
EXAM DATE: 07/21/2017 4:42 PM EDT AGE/SEX: 81 years / Male INDICATIONS: Right posterior wound and swelling. CLINICAL DATA: This is the patient's initial encounter. Patient reports that signs and symptoms have been present for 3 weeks and indicates a pain score of 5/10. MEDICAL/SURGICAL HISTORY: Hypertension. Atrial fibrillation. Renal failure. Dialysis. Arthritis . Osteoporosis. Appendectomy. Cholecystectomy. Colectomy. COMPARISON: [facility] [place] LEFT COMPLETE (4 VWS), 03/28/2016. . FINDINGS: Bony structures are intact and in normal alignment. Joints are intact without dislocation or signifi cant arthropathy. No evidence of a joint effusion. Osseous density is osteopenic. There is no focal s oft tissue swelling at the elbow.. No radiopaque foreign bodies seen. Otherwise, no other significa nt changes are seen compared to the prior study. CONCLUSION: 1. New nonspecific soft tissue swelling at the elbow. 2. 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 No significant change compared to the prior study fro rigo 2016. Electronically signed by: Dmitry Garza MD 07/21/2017 4:46 PM EDT
[2017-07-21] MEDS ORDERED: POTASSIUM CHLOR 20 MEQ PREMIX 100 ML IV ONE (19:00)
[2017-07-21] MEDS ORDERED: POTASSIUM CHLORIDE 20 MEQ CONTROLLED RELEASE TAB PO ONE ×2 (19:00)
[2017-07-21] MEDS ORDERED: DEXTROSE 50% IN WATER 50 ML SYRINGE IV PUSH ONE (19:00)
[2017-07-21] MEDS ORDERED: CALCIUM GLUCONATE INJ 1 GM in SODIUM CHLORIDE 0.9% INJ 90 ML IV ONE (19:00)
[2017-07-21 19:03] VITALS: BP_SYST 79; BP_SYST 83; BP_DIAS 42; BP_DIAS 51; PULSE 89; RESP 16; O2SAT 95
[2017-07-21] MEDS ORDERED: ONDANSETRON ODT 4 MG TAB PO PRN (20:00)
[2017-07-21] MEDS ORDERED: MAGNESIUM HYDROXIDE SUSP 30 ML CUP PO PRN (20:00)
[2017-07-21] MEDS ORDERED: BISACODYL 10 MG SUPP RECTAL PRN (20:00)
[2017-07-21] MEDS ORDERED: SODIUM CHLORIDE 0.9% FLUSH 10 ML FLUSH IV FLUSH PRN (20:00)
[2017-07-21] MEDS ORDERED: ACETAMINOPHEN 325 MG TAB PO PRN (20:00)
[2017-07-21] MEDS ORDERED: NALOXONE HCL 0.4 MG/ML AMP IV PUSH PRN (20:00)
[2017-07-21] MEDS ORDERED: LACTULOSE SYRUP 20 GM/30 ML CUP PO PRN (20:00)
[2017-07-21] MEDS ORDERED: SENNOSIDES 8.6 MG TAB PO PRN (20:00)
--- NOTE | 2017-07-21 20:34 | HHI.HP ---
[facility] Altaf Florez M.D. Admission Diagnosis Septic bursitis, lactic acidosis Diagnoses: Chief Complaint: Left elbow pain and swelling. Travel History International Travel<30 Days: No Contact w/Intl Traveler <30 Da: No Traveled to Known Affected Are: No History of Present Illness Mr. Valle is an 81-year-old male with a history of bursitis status post incision and drainage, ESRD on dialysis Wednesday who presents to the emergency department on 07/21/2017 due to left elbow pain swelling and redness. He denies any chest pain, shortness of breath, fever or chills. Denies any lightheadedness or dizziness. He went to his dialysis center and was advised to come to the emergency department due to his left elbow swelling and pain. He does admit that in the last few days his left elbow has been more swollen and painful as well as some drainage. ED provider contacted orthopedic surgeon who will evaluate patient in the morning for possible surgical I&D. Review of Systems Except as stated in HPI: all other systems reviewed are Neg Past Family Social History Past Medical History ESRD, atrial fibrillation, basal cell carcinoma Past Surgical History Colectomy due to consult polyps, hip replacement, right arm fistula. Reported Medications Walker with Front Wheels (Device) 1 Mis Mis Ea .ROUTE DIRECTED Reported Calcium Acetate (Phosphate Binder) 667 Mg Cap 1 Cap PO TID Cardizem CD 24 HR (Diltiazem CD 24 HR) 180 Mg Caper 180 Mg PO BID Vitamin C (Ascorbic Acid) 250 Mg Tab 300 Mg PO Alpha Lipoic Acid 200 Mg Cap 200 Mg PO DIRECTED Requip (Ropinirole HCl) 2 Mg Tab 2 Mg PO TID Enalapril (Enalapril Maleate) 5 Mg Tab 5 Mg PO DAILY Dorzolamide Opth Drops (Dorzolamide HCl) 2% Soln 1 Drop LEFT EYE BID Combigan Opth Drops (Brimonidine-Timolol Opth Drops) 0.2-0.5% Soln 1 Drop LEFT EYE BID Omeprazole 20 Mg Cap 1 Cap PO DAILY Levothyroxine (Levothyroxine Sodium) 50 Mcg Tab 1 Tab PO DAILY Dialyvite 800 (B-Complex W/ C & Folic Acid) 1 Tab 1 Tab PO DAILY Amiodarone (Amiodarone HCl) 200 Mg Tab 1 Tab PO BID Metoprolol Succinate ER 24 HR (Metoprolol Succinate) 50 Mg Tab 0.5 Tab PO BID Warfarin 5 Mg Tab 1 Tab PO DAILY Allergies: Coded Allergies: clindamycin (Verified Allergy, Severe, Rash, 07/21/17) ciprofloxacin (Verified Allergy, Unknown, 07/21/17) Family History Mother had Alzheimer's, father had cancer Social History Alcohol Use: No Tobacco Use: No Substance Use: No Physical Exam Vital Signs Vital Signs Date Time Temp Pulse Resp B/P (MAP) Pulse Ox O2 Delivery O2 Flow Rate FiO2 07/21/17 19:03 89 16 79/42 (54) 95 07/21/17 19:03 83/51 (62) 07/21/17 15:28 74 19 92/50 (64) 97 Room Air 07/21/17 15:09 97.2 76 16 67/42 (50) 95 Physical Exam GENERAL: This is a well-nourished, well-developed patient, in no apparent distress. SKIN: No rashes, ecchymoses or lesions. Warm and dry. HEAD: Atraumatic. Normocephalic. No temporal or scalp tenderness. EYES: Pupils equal round and reactive. No injection or drainage. ENT: Nose without bleeding, purulent drainage or septal hematoma. Airway patent. NECK: Trachea midline. No lymphadenopathy. Supple, nontender, no meningeal signs. CARDIOVASCULAR: Regular rate and rhythm without murmurs, gallops, or rubs. No JVD. RESPIRATORY: Clear to auscultation. Breath sounds equal bilaterally. No wheezes , rales, or rhonchi. GASTROINTESTINAL: Abdomen soft, non-tender, nondistended. No guarding. MUSCULOSKELETAL: Extremities without clubbing, cyanosis, or edema. Left elbow has a draining ulcer with surrounding erythematous skin, tender to palpation. NEUROLOGICAL: Awake and alert. Cranial nerves II through XII intact. No focal neurological deficits. Normal speech. Laboratory Laboratory Tests Test 07/21/17 13:55 07/21/17 16:00 07/21/17 17:34 07/21/17 18:57 Lactic Acid Level 2.5 2.0 White Blood Count 7.2 Red Blood Count 4.44 Hemoglobin 14.3 Hematocrit 43.1 Mean Corpuscular Volume 97.1 Mean Corpuscular Hemoglobin 32.2 Mean Corpuscular Hemoglobin Concent 33.1 Red Cell Distribution Width 15.6 Platelet Count 224 Mean Platelet Volume 7.2 Neutrophils (%) (Auto) 72.5 Lymphocytes (%) (Auto) 10.5 Monocytes (%) (Auto) 14.0 Eosinophils (%) (Auto) 1.9 Basophils (%) (Auto) 1.1 Neutrophils # (Auto) 5.2 Lymphocytes # (Auto) 0.8 Monocytes # (Auto) 1.0 Eosinophils # (Auto) 0.1 Basophils # (Auto) 0.1 CBC Comment DIFF FINAL Differential Comment Prothrombin Time 39.3 Prothromb Time International Ratio 3.9 Activated Partial Thromboplast Time 42.8 Blood Urea Nitrogen 17 Creatinine 1.75 Random Glucose 41 Total Protein 4.1 Albumin 1.4 Calcium Level LESS THAN 5.0 Alkaline Phosphatase 50 Aspartate Amino Transf (AST/SGOT) 11 Alanine Aminotransferase (ALT/SGPT) 9 Total Bilirubin 0.3 Sodium Level 151 Potassium Level 2.2 Chloride Level 123 Carbon Dioxide Level 19.2 Anion Gap 9 Estimat Glomerular Filtration Rate 37 Protein Corrected Calcium 6.2 Test 07/21/17 19:20 Bedside Hemoglobin 12.9 Bedside Hematocrit 38.0 Bedside Sodium 142 Bedside Potassium 3.4 Bedside Chloride 103 Bedside Blood Urea Nitrogen 24 Bedside Creatinine 3.4 Bedside Glucose 121 Date/Time Source Procedure Growth Status 07/21/17 16:00 Blood Peripheral Aerobic Blood Culture Pending Received 07/21/17 16:00 Blood Peripheral Anaerobic Blood Culture Pending Received 07/21/17 15:55 Wound Elbow Gram Stain Pending Received 07/21/17 15:55 Wound Elbow Wound Culture Pending Received Result Diagram: 07/21/17 1600 07/21/17 1734 Imaging Last Impressions Elbow X-Ray 07/21/17 0000 Signed Impressions: CONCLUSION: 1. New nonspecific soft tissue swelling at the elbow. 2. 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 No significant change compared to the prior study from 2017. Caprini VTE Risk Assessment Caprini VTE Risk Assessment: Mod/High Risk (score >= 2) Caprini Risk Assessment Model Point Value = 1 Point Value = 2 Point Value = 3 Point Value = 5 Age 41-60 Minor surgery BMI > 25 kg/m2 Swollen legs Varicose veins or History of unexplained or recurrent spontaneous Oral contraceptives or hormone replacement Sepsis (< 1 month) Serious lung disease, including pneumonia (< 1 month) Abnormal pulmonary function Acute myocardial infarction Congestive heart failure (< 1 month) History of inflammatory bowel disease Medical patient at bed rest Age 61-74 Arthroscopic surgery Major open surgery (> 45 min) Laparoscopic surgery (> 45 min) Malignancy Confined to bed (> 72 hours) Immobilizing plaster cast Central venous access Age >= 75 History of VTE Family history of VTE Factor V Leiden Prothrombin [id number] Lupus anticoagulant Anticardiolipin antibodies Elevated serum homocysteine Heparin-induced thrombocytopenia Other congenital or acquired thrombophilia Stroke (< 1 month) Elective arthroplasty Hip, pelvis, or leg fracture Acute spinal cord injury (< 1 month) Prophylaxis Regimen Total Risk Factor Score Risk Level Prophylaxis Regimen 0-1 Low Early ambulation 2 Moderate Order ONE of the following: *Sequential Compression Device (SCD) *Heparin 5000 units SQ BID 3-4 Higher Order ONE of the following medications: *Heparin 5000 units SQ TID *Enoxaparin/Lovenox 40 mg SQ daily (WT < 150 kg, CrCl > 30 mL/min) *Enoxaparin/Lovenox 30 mg SQ daily (WT < 150 kg, CrCl > 10-29 mL/min) *Enoxaparin/Lovenox 30 mg SQ BID (WT < 150 kg, CrCl > 30 mL/min) AND/OR *Sequential Compression Device (SCD) 5 or more Highest Order ONE of the following medications: *Heparin 5000 units SQ TID (Preferred with Epidurals) *Enoxaparin/Lovenox 40 mg SQ daily (WT < 150 kg, CrCl > 30 mL/min) *Enoxaparin/Lovenox 30 mg SQ daily (WT < 150 kg, CrCl > 10-29 mL/min) *Enoxaparin/Lovenox 30 mg SQ BID (WT < 150 kg, CrCl > 30 mL/min) AND *Sequential Compression Device (SCD) Assessment and Plan Problem List: (1) Olecranon bursitis, left elbow ICD Code: M70.22 - Olecranon bursitis, left elbow (2) ESRD (end stage renal disease) on dialysis ICD Code: N18.6 - End stage renal failure on dialysis; Z99.2 - Dependence on renal dialysis Status: Acute (3) Atrial fibrillation Status: Chronic Assessment and Plan Mr. Valle is a very pleasant 81-year-old male with a history of ESRD , atrial fibrillation who presented to the emergency department due to worsening left elbow pain, swelling and some drainage. He has been in the healthcare system with regards to his left elbow olecranon bursitis and culture grew staph species which was pansensitive. Left elbow olecranon bursitis Hypotension - Will start patient on Ancef 2g Q8hrs. - Does not meet criteria for SIRS, sepsis. However, Lactic acid elevated, BP somewhat low - Will give one more bolus of NS and continue NS @ 125cc/hour. - Orthopedic surgery consult pending. ESRD - Will consult Dr. Murcia for HD. Atrial fibrillation - Will start Metoprolol tartrate 25mg BID with holding parameters. - continue Amiodarone 200mg BID. 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 - Continue Cardizem 180mg Qday - Pt is on Warfarin, INR 3.9 today. Will repeat INR in the AM. Full code. Warfarin (on hold), INR 3.9. Physician Certification 2 Midnight Certification Type: Admission for Inpatient Services Order for Inpatient Services The services are ordered in accordance with Medicare regulations or non- Medicare payer requirements, as applicable. In the case of services not specified as inpatient-only, they are appropriately provided as inpatient services in accordance with the 2-midnight benchmark. Estimated LOS (days): 2 days is the estimated time the patient will need to remain in the hospital, assuming treatment plan goals are met and no additional complications. Post-Hospital Plan: Home Raquel Gurrola DO July 21, 2017 20:34
[2017-07-21] MEDS: SODIUM CHLORIDE 0.9% FLUSH 10 ML FLUSH IV FLUSH SCH (20:56)
[2017-07-21 22:00] VITALS: BP 88/49; PULSE 85; RESP 15; O2SAT 99
[2017-07-21 22:34] LABS: ALBUMIN 2.3 GM/DL (3.4-5.0); CALCIUM 7.9 MG/DL (8.5-10.1); CREATININE 3.45 MG/DL (0.60-1.30); TOTAL PROTEIN 6.7 GM/DL (6.4-8.2)
[2017-07-21 22:36] LABS: BICARBONATE 24.7 MEQ/L (21.0-32.0); CALCIUM-PROTEIN CORRECTED 8.2 MG/DL (8.5-10.1); TOTAL BILIRUBIN ADULT 0.5 MG/DL (0.2-1.0)
[2017-07-22] VITALS (10 sets, daily range): BP systolic 86–113; BP diastolic 48–73; PULSE 76–103; RESP 15–20; TEMP 97.1–97.4; O2SAT 95–100
[2017-07-22] MEDS ORDERED: SODIUM CHLOR 0.9% 1000 ML INJ 1,000 ML IV SCH (01:15)
[2017-07-22] MEDS ORDERED: SODIUM CHLOR 0.9% 1000 ML INJ 1,000 ML IV ONE (01:15)
[2017-07-22] MEDS: ceFAZolin 2 GM PREMIX 50 ML IV SCH ×3 (01:43→17:38)
[2017-07-22] MEDS ORDERED: TEMAZEPAM 15 MG CAP PO ONE (03:00)
[2017-07-22 06:02] LABS: AUTOMATED NEUTROPHIL # 5.5 TH/MM3 (1.8-7.7); BASOPHIL # 0.1 TH/MM3 (0-0.2); BASOPHIL % 1.2 % (0.0-2.0); EOSINOPHIL # 0.2 TH/MM3 (0-0.4); EOSINOPHIL % 2.3 % (0.0-4.0); HEMOGLOBIN 13.1 GM/DL (13.0-17.0); LYMPH % 10.4 % (9.0-44.0); LYMPHOCYTE # 0.8 TH/MM3 (1.0-4.8); MEAN CORPUSCULAR HEMOGLOBIN 32.9 PG (27.0-34.0); MEAN CORPUSCULAR HGB CONC 33.6 % (32.0-36.0); MEAN PLATELET VOLUME 7.2 FL (7.0-11.0); MONO % 11.8 % (0.0-8.0); MONOCYTE # 0.9 TH/MM3 (0-0.9); NEUT % 74.3 % (16.0-70.0); PLATELET COUNT 195 TH/MM3 (150-450); RED BLOOD COUNT 3.98 MIL/MM3 (4.50-5.90); RED CELL DISTRIBUTION WIDTH 15.6 % (11.6-17.2); WHITE BLOOD COUNT 7.4 TH/MM3 (4.0-11.0)
[2017-07-22 06:14] LABS: BICARBONATE 26.4 MEQ/L (21.0-32.0); CALCIUM 7.4 MG/DL (8.5-10.1); CREATININE 4.21 MG/DL (0.60-1.30); INTERNATIONAL NORMALIZED RATIO 2.7 RATIO; PROTHROMBIN TIME - PATIENT 27.7 SEC (9.8-11.6)
[2017-07-22 06:28] LABS: CALCIUM-PROTEIN CORRECTED 7.6 MG/DL (8.5-10.1); TOTAL PROTEIN 6.8 GM/DL (6.4-8.2)
--- NOTE | 2017-07-22 07:36 | PD.ORT.PN ---
Subjective Subjective Remarks 81-year-old male with a past medical history of chronic kidney disease and permanent dialysis 3 times a week presented to the emergency department late yesterday evening after persistent left elbow pain. Patient was seen by myself and Dr. Gonzalez in the clinic approximately 2 weeks ago on 07/09 for persistent left elbow pain. Olecranon bursa was aspirated in the office in which culture did grow out staph lugdunensis. Patient was placed on oral antibiotics and told to follow-up in approximately 1-2 weeks. We did discuss surgical management at that time but he would of course require medical clearance. Orthopedic consultation was requested after patient presented to emergency department with obvious olecranon bursitis / possible septic olecranon bursitis. No other orthopedic injuries are involved. No other complaints. (Jenny Vidal) Objective Vitals Vital Signs Date Time Temp Pulse Resp B/P (MAP) Pulse Ox O2 Delivery O2 Flow Rate FiO2 07/22/17 06:08 78 16 87/48 (61) 96 07/22/17 01:00 79 15 95/52 (66) 100 Room Air 07/21/17 22:00 85 15 88/49 (62) 99 Room Air 07/21/17 19:03 89 16 79/42 (54) 95 07/21/17 19:03 83/51 (62) 07/21/17 15:28 74 19 92/50 (64) 97 Room Air 07/21/17 15:09 97.2 76 16 67/42 (50) 95 I/O 07/21/17 07/21/17 07/21/17 07/22/17 07/22/17 07/22/17 07:00 15:00 23:00 07:00 15:00 23:00 Intake Total 250 ml Balance 250 ml Intake IV Total 250 ml (Jenny Vidal) Result Diagram: 07/22/17 0441 07/22/17 0441 Other Results Laboratory Tests Test 07/21/17 16:00 07/22/17 04:41 Prothromb Time International Ratio 3.9 RATIO 2.7 RATIO Prothrombin Time 39.3 SEC (9.8-11.6) 27.7 SEC (9.8-11.6) Imaging Last Impressions Elbow X-Ray 5/23/18 0000 Signed Impressions: CONCLUSION: 1. New nonspecific soft tissue swelling at the elbow. 2. 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 No significant change compared to the prior study from 2017. Objective Remarks LLE: Obvious edema with swelling of left olecranon bursa, skin peeling is present, very minimal drainage present, bursa itself is red/pink, is not warm to touch, positive ballottement, any pain with attempts at range of motion, neurovascularly intact. Good cap refill. (Jenny Vidal) Assessment & Plan Problem List: (1) Infection of left olecranon bursa ICD Codes: M71.122 - Other infective bursitis, left elbow Status: Acute Assessment and Plan The findings were discussed with the patient. Recommendations are given for surgical management, to allow for mobilization and pain control, irrigation and debridement with left olecranon bursa excision, possible wound VAC placement. The nature of the planned surgical procedure, the risks, the benefits as well as postoperative expectations have been discussed with the patient in detail. In addition, alternatives of the treatment and risks were discussed. The patient acknowledges full understanding and consents to it. (Jenny Vidal) Assessment and Plan The above was completed with the assistance of a mid-level provider. I agree with the findings presented. Plan I&D elbow. (Axel Gonzalez MD) Jenny Vidal July 22, 2017 07:36 Axel Gonzalez MD July 22, 2017 08:13
--- NOTE | 2017-07-22 08:07 | HHI.PR ---
Subjective Remarks in no acute distress. complaining of pain to the left elbow. no fever. Objective Vitals Vital Signs Date Time Temp Pulse Resp B/P (MAP) Pulse Ox O2 Delivery O2 Flow Rate FiO2 07/22/17 06:08 78 16 87/48 (61) 96 07/22/17 01:00 79 15 95/52 (66) 100 Room Air 07/21/17 22:00 85 15 88/49 (62) 99 Room Air 07/21/17 19:03 89 16 79/42 (54) 95 07/21/17 19:03 83/51 (62) 07/21/17 15:28 74 19 92/50 (64) 97 Room Air 07/21/17 15:09 97.2 76 16 67/42 (50) 95 I/O 07/21/17 07/21/17 07/21/17 07/22/17 07/22/17 07/22/17 06:59 14:59 22:59 06:59 14:59 22:59 Intake Total 250 ml Balance 250 ml Intake IV Total 250 ml Result Diagram: 07/22/17 0441 07/22/17 0441 Imaging Last Impressions Elbow X-Ray 07/21/17 0000 Signed Impressions: CONCLUSION: 1. New nonspecific soft tissue swelling at the elbow. 2. 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 No significant change compared to the prior study from 2017. Objective Remarks GENERAL: elderly male, in no apparent distress. CARDIOVASCULAR: Regular rate and regular rhythm without murmurs, gallops, or rubs. RESPIRATORY: Clear to auscultation. Breath sounds equal bilaterally. No wheezes , rales, or rhonchi. GASTROINTESTINAL: Abdomen soft, non-tender, nondistended. Normal, active bowel sounds MUSCULOSKELETAL:erythema/ swelling of the left olecranon NEURO: awake and alert Medications and IVs Inpatient Medications Acetaminophen (Tylenol) 650 mg Q4H PRN PO LOZA, fever, pain 1-4; Start 07/21/17 at 20:00 Amiodarone HCl (Cordarone) 200 mg BID PO ; Start 07/22/17 at 09:00 Bisacodyl (Dulcolax Supp) 10 mg DAILY PRN RECTAL SEVERE CONSITIPATION; Start at 20:00 Brimonidine Tartrate (Alphagan 0.2% Opth Soln) 1 drop Q12HR LEFT EYE ; Start at 09:00 Calcium Acetate (Phoslo) 667 mg TID PO ; Start 07/22/17 at 09:00 Calcium Gluconate 1 gm/Sodium Chloride 100 ml @ 100 mls/hr ONCE ONCE IV ; Start 07/21/17 at 19:00; Stop 07/21/17 at 19:46; Status DC Cefazolin Sodium/ Dextrose 50 ml @ 100 mls/hr Q8H IV Last administered on 07/22at 01:43; Start 07/22/17 at 01:00 Dextrose (D50w (Syr) Inj) 25 ml ONCE ONCE IV PUSH ; Start 07/21/17 at 19:00; Stop 07/21/17 at 19:46; Status DC Diltiazem HCl (Cardizem Cd) 180 mg DAILY PO ; Start 07/22/17 at 09:00 Enalapril Maleate (Vasotec) 5 mg DAILY PO ; Start 07/22/17 at 09:00 Lactulose (Lactulose Liq) 30 ml DAILY PRN PO SEVERE CONSITIPATION; Start at 20:00 Lidocaine/ Epinephrine (Xylocaine-Epi 1%-1:100,000 Inj) 50 ml ONCE ONCE INFIL ; Start 07/21/17 at 15:30; Stop 07/21/17 at 15:33; Status DC Magnesium Hydroxide (Milk Of Magnesia Liq) 30 ml Q12H PRN PO Mild constipation ; Start 07/21/17 at 20:00 Metoprolol Tartrate (Lopressor) 25 mg Q12HR PO ; Start 07/22/17 at 09:00 Naloxone HCl (Narcan Inj) 0.4 mg UNSCH PRN IV PUSH SEE LABEL COMMENTS; Start at 20:00 Non-Formulary Medication 1 drop BID LEFT EYE ; Start 07/22/17 at 09:00; Stop at 09:00; Status DC Ondansetron HCl (Zofran Odt) 4 mg Q6H PRN PO NAUSEA OR VOMITING; Start at 20:00 Pantoprazole Sodium (Protonix) 20 mg DAILY PO ; Start 07/22/17 at 09:00 Potassium Chloride (KCl) 40 meq ONCE ONCE PO ; Start 07/21/17 at 19:00; Stop at 19:46; Status DC Ropinirole HCl (Requip) 2 mg TID PO ; Start 07/22/17 at 09:00 Sennosides (Senokot) 17.2 mg Q12H PRN PO Moderate constipation; Start 07/21/17 at 20:00 Sodium Chloride 1,000 ml @ 125 mls/hr Q8H IV Last administered on 07/22/17at 01 :43; Start 07/22/17 at 01:15 Sodium Chloride (NS Flush) 2 ml BID IV FLUSH ; Start 07/21/17 at 21:00 Temazepam (Restoril) 15 mg ONCE ONCE PO Last administered on 07/22/17at 03:52; Start 07/22/17 at 03:00; Stop 07/22/17 at 03:01; Status DC Timolol Maleate (Timoptic 0.5% Opt Soln) 1 drop Q12HR LEFT EYE ; Start at 09:00 Vancomycin HCl 1000 mg/Sodium Chloride 250 ml @ 250 mls/hr ONCE ONCE IV Last administered on 07/21/17at 16:36; Start 07/21/17 at 16:15; Stop 07/21/17 at 17:14 ; Status DC A/P Problem List: (1) Olecranon bursitis, left elbow ICD Code: M70.22 - Olecranon bursitis, left elbow (2) ESRD (end stage renal disease) on dialysis ICD Code: N18.6 - End stage renal failure on dialysis; Z99.2 - Dependence on renal dialysis Status: Acute (3) Atrial fibrillation Status: Chronic Assessment and Plan Left elbow olecranon bursitis Hypotension - Will start patient on Ancef 2g Q8hrs. - Does not meet criteria for SIRS, sepsis. However, Lactic acid elevated, BP somewhat low - received bolus of NS and continue NS @ 100cc/hour. - Orthopedic surgery consult appreciated and plan for surgical management. ESRD - Will consult Dr. Murcia for HD. Atrial fibrillation - continue Amiodarone 200mg BID. 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 - hold Cardizem and Metoprolol due to hypotension. - Pt is on Warfarin, INR therapeutic- Coumadin o hold for surgical intervention. Full code. Warfarin (on hold), INR 3.9. Discharge Planning for ortho intervention. Ruby Nice MD July 22, 2017 08:07
[2017-07-22] MEDS: MORPHINE SULFATE 4 MG/ML INJ IV PUSH PRN (08:27)
[2017-07-22] MEDS ORDERED: DILTIAZEM-CD 180 MG CAP ER PO SCH ×2 (09:00)
[2017-07-22] MEDS ORDERED: ENALAPRIL MALEATE 5 MG TAB PO SCH (09:00)
[2017-07-22] MEDS: AMIODARONE 200 MG TAB PO SCH ×2 (09:00→21:00)
[2017-07-22] MEDS: CALCIUM ACETATE 667 MG CAP PO SCH ×3 (09:00→17:38)
[2017-07-22] MEDS: SODIUM CHLORIDE 0.9% FLUSH 10 ML FLUSH IV FLUSH SCH ×2 (09:00→21:00)
[2017-07-22] MEDS: PANTOPRAZOLE SOD 20 MG DELAYED RELEASE TAB PO SCH (09:00)
[2017-07-22] MEDS ORDERED: METOPROLOL TARTRATE 25 MG TAB PO SCH (09:00)
[2017-07-22] MEDS ORDERED: NON-FORMULARY DRUG (Brimonidine-Timolol Opth Drops (Combigan Opth Drops) 1 DROP) LEFT EYE SCH (09:00)
[2017-07-22] MEDS: BRIMONIDINE TARTRATE 0.2% OPHT SOLN 5 ML BTL LEFT EYE SCH ×2 (09:26→22:38)
[2017-07-22] MEDS: TIMOLOL MALEATE 0.5% OPHT SOLN 5 ML BTL LEFT EYE SCH ×2 (09:26→22:38)
--- NOTE | 2017-07-22 09:32 | PD.CONS ---
HPI Service Nephrology Reason for Consult Known ESRD on HD Primary Care Physician Altaf Florez M.D. History of Present Illness The patient is an 81 yo [place] male who is known to our services for ESRD on HD. He presented to the ED on 523 with complaints of L elbow pain. He has had known bursitis and has been having aspirated periodically. The bursa had become more painful and red so the patient decided to come to the ED for eval. Denies any fever, nausea, vomiting. Last HD was 07/21 (Verena Arita) Review of Systems Musculoskeletal: COMPLAINS OF: Joint pain, Joint Swelling (Verena Arita ) Past Family Social History Allergies: Coded Allergies: clindamycin (Verified Allergy, Severe, Rash, 07/21/17) ciprofloxacin (Verified Allergy, Unknown, 07/21/17) Past Medical History ESRD Hx of hypertension Atrial fibrillation Multiple skin cancers RLS Hypothyroidism Past Surgical History Partial colectomy 04/02 to polyps Multiple skin CA excisions RUE AVF Reported Medications Calcium Acetate (Phosphate Binder) 667 Mg Cap 1 Cap PO TID Cardizem CD 24 HR (Diltiazem CD 24 HR) 180 Mg Caper 180 Mg PO BID Vitamin C (Ascorbic Acid) 250 Mg Tab 300 Mg PO Alpha Lipoic Acid 200 Mg Cap 200 Mg PO DIRECTED Requip (Ropinirole HCl) 2 Mg Tab 2 Mg PO TID Enalapril (Enalapril Maleate) 5 Mg Tab 5 Mg PO DAILY Dorzolamide Opth Drops (Dorzolamide HCl) 2% Soln 1 Drop LEFT EYE BID Combigan Opth Drops (Brimonidine-Timolol Opth Drops) 0.2-0.5% Soln 1 Drop LEFT EYE BID Omeprazole 20 Mg Cap 1 Cap PO DAILY Levothyroxine (Levothyroxine Sodium) 50 Mcg Tab 1 Tab PO DAILY Dialyvite 800 (B-Complex W/ C & Folic Acid) 1 Tab 1 Tab PO DAILY Amiodarone (Amiodarone HCl) 200 Mg Tab 1 Tab PO BID Metoprolol Succinate ER 24 HR (Metoprolol Succinate) 50 Mg Tab 0.5 Tab PO BID Warfarin 5 Mg Tab 1 Tab PO DAILY Active Ordered Medications Current Medications Medications (Trade) Dose Ordered Sig/Sara Route Start Time Stop Time Status Last Admin (NS Flush) 2 ml UNSCH PRN IV FLUSH 07/21/17 20:00 (NS Flush) 2 ml BID IV FLUSH 07/21/17 21:00 (Tylenol) 650 mg Q4H PRN PO 07/21/17 20:00 (Zofran Odt) 4 mg Q6H PRN PO 07/21/17 20:00 (Narcan Inj) 0.4 mg UNSCH PRN IV PUSH 07/21/17 20:00 (Milk Of Magnesia Liq) 30 ml Q12H PRN PO 07/21/17 20:00 (Senokot) 17.2 mg Q12H PRN PO 07/21/17 20:00 (Dulcolax Supp) 10 mg DAILY PRN RECTAL 07/21/17 20:00 (Lactulose Liq) 30 ml DAILY PRN PO 07/21/17 20:00 Cefazolin Sodium/ Dextrose 50 ml @ 100 mls/hr Q8H IV 07/22/17 01:00 07/22/17 09:26 (Cordarone) 200 mg BID PO 07/22/17 09:00 (Phoslo) 667 mg TID PO 07/22/17 09:00 (Vasotec) 5 mg DAILY PO 07/22/17 09:00 Future Hold (Requip) 2 mg TID PO 07/22/17 09:00 (Protonix) 20 mg DAILY PO 07/22/17 09:00 (Lopressor) 25 mg Q12HR PO 07/22/17 09:00 Future Hold (Alphagan 0.2% Opth Soln) 1 drop Q12HR LEFT EYE 07/22/17 09:00 07/22/17 09:26 (Timoptic 0.5% Opth Soln) 1 drop Q12HR LEFT EYE 07/22/17 09:00 07/22/17 09:26 (Cardizem Cd) 180 mg DAILY PO 07/22/17 09:00 Future Hold (Morphine Inj) 2 mg Q4H PRN IV PUSH 07/22/17 08:15 07/22/17 08:27 Family History NC Social History Lives alone locally No children Denies EtOH, tobacco, illicits (Verena Arita) Physical Exam Vital Signs Vital Signs Date Time Temp Pulse Resp B/P (MAP) Pulse Ox O2 Delivery O2 Flow Rate FiO2 07/22/17 08:15 86 17 90/50 (63) 100 Room Air 07/22/17 06:08 78 16 87/48 (61) 96 07/22/17 01:00 79 15 95/52 (66) 100 Room Air 07/21/17 22:00 85 15 88/49 (62) 99 Room Air 07/21/17 19:03 89 16 79/42 (54) 95 07/21/17 19:03 83/51 (62) 07/21/17 15:28 74 19 92/50 (64) 97 Room Air 07/21/17 15:09 97.2 76 16 67/42 (50) 95 Physical Exam GENERAL: Laying in bed. Seems slightly confused and agitated. SKIN: Warm and dry. HEAD: Atraumatic. Normocephalic. EYES: Pupils equal and round. No scleral icterus. No injection or drainage. ENT: No nasal bleeding or discharge. Mucous membranes pink and moist. NECK: Trachea midline. No JVD. CARDIOVASCULAR: Regular rate and rhythm. RESPIRATORY: No accessory muscle use. Clear to auscultation. Breath sounds equal bilaterally. GASTROINTESTINAL: Abdomen soft, non-tender, nondistended. Hepatic and splenic margins not palpable. MUSCULOSKELETAL: Extremities without clubbing, cyanosis, or edema. No obvious deformities. L elbow bursitis noted. Erythematous and mildly warm. Skin is scaling. No active drainage. NEUROLOGICAL: Awake and alert. PSYCHIATRIC: Appropriate mood and affect Laboratory Laboratory Tests Test 07/21/17 13:55 07/21/17 16:00 07/21/17 17:34 07/21/17 18:57 Lactic Acid Level 2.5 2.0 White Blood Count 7.2 Red Blood Count 4.44 Hemoglobin 14.3 Hematocrit 43.1 Mean Corpuscular Volume 97.1 Mean Corpuscular Hemoglobin 32.2 Mean Corpuscular Hemoglobin Concent 33.1 Red Cell Distribution Width 15.6 Platelet Count 224 Mean Platelet Volume 7.2 Neutrophils (%) (Auto) 72.5 Lymphocytes (%) (Auto) 10.5 Monocytes (%) (Auto) 14.0 Eosinophils (%) (Auto) 1.9 Basophils (%) (Auto) 1.1 Neutrophils # (Auto) 5.2 Lymphocytes # (Auto) 0.8 Monocytes # (Auto) 1.0 Eosinophils # (Auto) 0.1 Basophils # (Auto) 0.1 CBC Comment DIFF FINAL Differential Comment Prothrombin Time 39.3 Prothromb Time International Ratio 3.9 Activated Partial Thromboplast Time 42.8 Blood Urea Nitrogen 25 Creatinine 3.45 Random Glucose 121 Total Protein 6.7 Albumin 2.3 Calcium Level 7.9 Alkaline Phosphatase 84 Aspartate Amino Transf (AST/SGOT) 20 Alanine Aminotransferase (ALT/SGPT) 17 Total Bilirubin 0.5 Sodium Level 143 Potassium Level 3.5 Chloride Level 106 Carbon Dioxide Level 24.7 Anion Gap 12 Estimat Glomerular Filtration Rate 17 Protein Corrected Calcium 8.2 Test 07/21/17 19:20 07/22/17 04:41 Bedside Hemoglobin 12.9 Bedside Hematocrit 38.0 Bedside Sodium 142 Bedside Potassium 3.4 Bedside Chloride 103 Bedside Blood Urea Nitrogen 24 Bedside Creatinine 3.4 Bedside Glucose 121 Calcium Level 7.7 7.4 White Blood Count 7.4 Red Blood Count 3.98 Hemoglobin 13.1 Hematocrit 39.0 Mean Corpuscular Volume 98.0 Mean Corpuscular Hemoglobin 32.9 Mean Corpuscular Hemoglobin Concent 33.6 Red Cell Distribution Width 15.6 Platelet Count 195 Mean Platelet Volume 7.2 Neutrophils (%) (Auto) 74.3 Lymphocytes (%) (Auto) 10.4 Monocytes (%) (Auto) 11.8 Eosinophils (%) (Auto) 2.3 Basophils (%) (Auto) 1.2 Neutrophils # (Auto) 5.5 Lymphocytes # (Auto) 0.8 Monocytes # (Auto) 0.9 Eosinophils # (Auto) 0.2 Basophils # (Auto) 0.1 CBC Comment DIFF FINAL Differential Comment Prothrombin Time 27.7 Prothromb Time International Ratio 2.7 Blood Urea Nitrogen 32 Creatinine 4.21 Random Glucose 79 Total Protein 6.8 Sodium Level 142 Potassium Level 3.8 Chloride Level 104 Carbon Dioxide Level 26.4 Anion Gap 12 Estimat Glomerular Filtration Rate 14 Protein Corrected Calcium 7.6 Date/Time Source Procedure Growth Status 07/21/17 16:00 Blood Peripheral Aerobic Blood Culture Pending Received 07/21/17 16:00 Blood Peripheral Anaerobic Blood Culture Pending Received 07/21/17 15:55 Wound Elbow Gram Stain - Final Resulted 07/21/17 15:55 Wound Elbow Wound Culture Pending Resulted (Verena Arita) Result Diagram: 07/22/171 07/22/17 0441 Imaging Last Impressions Elbow X-Ray 07/21/17 0000 Signed Impressions: CONCLUSION: 1. New nonspecific soft tissue swelling at the elbow. 2. 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 No significant change compared to the prior study from 2017. (Verena Arita) Assessment and Plan Problem List: (1) ESRD (end stage renal disease) on dialysis ICD Codes: N18.6 - End stage renal failure on dialysis; Z99.2 - Dependence on renal dialysis Status: Acute Plan: Continue on HD MWF as before Orders placed for tomorrow. Continue on calcium acetate Medications should be adjusted for the patient's ESRD. Avoid gadolinium. (2) Hypotension ICD Codes: I95.9 - Hypotension, unspecified Plan: BP meds have been held D/C IVF given ESRD Will start on Midodrine for support. Noted preliminary BCx positive for GPC. Started on Cefazolin Await finalization. (3) Olecranon bursitis, left elbow ICD Codes: M70.22 - Olecranon bursitis, left elbow Plan: Management as per ortho (Verena Arita) Assessment and Plan The exam, history, and the medical decision-making described in the above note were completed with the assistance of the PA-C. I reviewed and agree with the findings presented. I attest that I had a [id number] encounter with the patient . (Alice Murcia MD) Verena Arita July 22, 2017 09:32 Alice Murcia MD July 23, 2017 11:49
[2017-07-22] MEDS ORDERED: ePHEDrine/NS 25 MG/5 ML SYRINGE IV ONE (12:00)
[2017-07-22] MEDS ORDERED: PROPOFOL 200 MG/20 ML AMP IV ONE (12:00)
[2017-07-22] MEDS ORDERED: PHENYLEPH/NS 1000 MCG/10 ML SYR IV ONE (12:00)
[2017-07-22] MEDS ORDERED: ONDANSETRON HCL 4 MG/2 ML VIAL IV PUSH ONE (12:00)
[2017-07-22] MEDS ORDERED: LIDOCAINE HCL 1% PF 5 ML SYRINGE OTHER ONE (12:00)
[2017-07-22] MEDS ORDERED: SODIUM CHLOR 0.9% 1000 ML INJ 1,000 ML OTHER PRN ×2 (14:41)
[2017-07-22] MEDS ORDERED: SODIUM CHLOR 0.9% 1000 ML INJ 1,000 ML IV PRN (14:41)
[2017-07-22] MEDS ORDERED: SODIUM CHLORIDE 0.9% FLUSH 10 ML FLUSH IV FLUSH PRN ×2 (14:45→19:30)
[2017-07-22] MEDS ORDERED: HEPARIN SODIUM - IV 10,000 UNITS/10 ML VIAL PRN (14:45)
[2017-07-22] MEDS ORDERED: MANNITOL 12.5 GM/50 ML VIAL IV PRN (14:45)
[2017-07-22] MEDS ORDERED: NITROGLYCERIN 0.4 MG SL 25 TABS/BTL SL PRN (14:45)
[2017-07-22] MEDS ORDERED: GENTAMICIN SULFATE 20 MG/2 ML VIAL OTHER PRN (14:45)
[2017-07-22] MEDS ORDERED: HEPARIN SODIUM - IV 10,000 UNITS/10 ML VIAL IV FLUSH PRN (14:45)
[2017-07-22] MEDS ORDERED: cloNIDine HCL 0.1 MG TAB PO PRN (14:45)
[2017-07-22] MEDS ORDERED: ACETAMINOPHEN 325 MG TAB PO PRN (14:45)
[2017-07-22] MEDS ORDERED: ONDANSETRON HCL 4 MG/2 ML VIAL IV PUSH PRN (14:45)
[2017-07-22] MEDS ORDERED: diphenhydrAMINE HCL 25 MG CAP PO PRN (14:45)
[2017-07-22] MEDS ORDERED: ONDANSETRON ODT 4 MG TAB PO PRN (15:15)
[2017-07-22] MEDS ORDERED: NEOMYCIN/POLYMYXIN 1 ML G.U. IRRIGANT ONE (17:16)
[2017-07-22] MEDS: MIDODRINE 5 MG TAB PO SCH (17:38)
--- NOTE | 2017-07-22 19:23 | PD.OP ---
cc: Axel Gonzalez MD Operative Report Date of Surgery: July 22, 2017 Preoperative Diagnosis: (1) Septic olecranon bursitis of left elbow Postoperative Diagnosis: (1) Septic olecranon bursitis of left elbow Procedure: Irrigation and debridement, excision of olecranon bursa left elbow Anesthesia: General Surgeon: Axel Gonzalez Liability Claims Examiner(s): OR staff Operation and Findings: Indications: This 81-year-old male has been followed for olecranon bursitis of his left elbow. He started having purulent drainage which has been unresponsive to antibiotic treatment on an outpatient basis. He presented to [facility] and was admitted to the medical service with orthopedic consultation requested. Recommendations are for irrigation debridement. Procedure and findings: The patient was taken to the operative suite and after undergoing an adequate level of general anesthesia was kept supine on the operating table. He maintained his regular antibiotic schedule. The left upper extremity was prepped and draped in usual sterile fashion with alcohol and Hibiclens. There were 2 small areas of purulent drainage. An approximate 10 cm incision was made over the posterior aspect of the elbow excising the sinus tracts in the central aspect. Cultures were taken. Utilizing a scalpel and rongeur the infected olecranon bursa tissue was excised sharply. The wound was thoroughly irrigated with pulse lavage. Hemostasis was obtained with electrocautery. The incision was then closed in layers utilizing 2-0 Vicryl suture on the subcutaneous tissue and a loose 3-0 nylon on the skin. A wound VAC was then applied. The patient was then awakened, transferred to the hospital bed and taken to the recovery room in stable condition. Estimated blood loss: 50 cc Complications: None Axel Gonzalez MD July 22, 2017 19:23
[2017-07-22] MEDS ORDERED: METOPROLOL TARTRATE 5 MG/5 ML VIAL ONE (19:54)
[2017-07-22] MEDS ORDERED: *HYDROmorphone PF 0.5 MG/0.5 ML PERIprocedure ONLY ONE (20:14)
[2017-07-22] MEDS ORDERED: HYDROmorphone HCL PF 2 MG/ML VIAL IV ONE (21:15)
[2017-07-22] MEDS ORDERED: DO NOT ADM ANY ANTICOAGULANT DRUGS PRN (21:15)
[2017-07-22] MEDS ORDERED: METOPROLOL TARTRATE 5 MG/5 ML VIAL IV PUSH ONE (21:15)
[2017-07-23] VITALS (12 sets, daily range): BP systolic 80–108; BP diastolic 50–82; PULSE 94–133; RESP 18–22; TEMP 97.2–98.2; O2SAT 93–100
[2017-07-23] MEDS: ceFAZolin 2 GM PREMIX 50 ML IV SCH (01:04)
[2017-07-23] MEDS: MORPHINE SULFATE 4 MG/ML INJ IV PUSH PRN (01:32)
[2017-07-23] MEDS: MIDODRINE 5 MG TAB PO SCH ×3 (05:54→18:03)
--- NOTE | 2017-07-23 07:58 | PD.ORT.PN ---
Subjective Post Op Day #: 1 Subjective Remarks POD #1 Irrigation and debridement, excision of olecranon bursa left elbow, application wound vac Pt is awake and alert, pain is well controlled. He seems to be very frustrated, extra time was spent with pt answering all questions. Education was provided. Pt appears to still be NPO. No other complaints. Objective Vitals Vital Signs Date Time Temp Pulse Resp B/P (MAP) Pulse Ox O2 Delivery O2 Flow Rate FiO2 07/23/17 06:15 97.6 114 22 90/52 (65) 97 07/23/17 04:01 100 07/23/17 04:01 Nasal Cannula 2.00 07/23/17 03:27 Nasal Cannula 2.00 07/23/17 00:10 97.3 96 22 94/54 (67) 99 07/23/17 00:10 Nasal Cannula 2.00 07/22/17 23:49 89 07/22/17 23:39 92 07/22/17 22:06 90/64 (73) 07/22/17 21:00 97.3 99 20 86/63 (71) 96 07/22/17 20:44 119 12 95/58 (70) 95 Nasal Cannula 2 07/22/17 20:25 121 12 96/62 (73) 96 Nasal Cannula 2 07/22/17 20:15 119 12 109/79 (89) 96 Nasal Cannula 2 07/22/17 20:05 119 15 99/65 (76) 96 Nasal Cannula 2 07/22/17 20:00 119 15 101/62 (75) 96 Nasal Cannula 2 07/22/17 19:45 130 15 108/63 (78) 98 Nasal Cannula 2 07/22/17 19:38 129 15 103/58 (73) 98 Nasal Cannula 2 07/22/17 19:33 97.4 130 15 104/66 (79) 99 Nasal Cannula 2 07/22/17 16:00 97.4 83 18 113/73 (86) 97 07/22/17 14:00 Room Air 07/22/17 12:00 97.1 76 16 90/55 (67) 95 07/22/17 11:24 103 17 91/50 (64) 98 Room Air 07/22/17 08:15 86 17 90/50 (63) 100 Room Air I/O 5/24/18 07/22/17 07/22/17 07/23/17 07/23/17 07/23/17 07:00 15:00 23:00 07:00 15:00 23:00 Intake Total 200 ml 140 ml Output Total 50 ml Balance 150 ml 140 ml Intake Oral 90 ml IV Total 50 ml Other 200 ml Output Estimated Blood Loss 50 ml Result Diagram: 07/22/17 0441 07/22/17 0441 Imaging Last Impressions Elbow X-Ray 07/21/17 0000 Signed Impressions: CONCLUSION: 1. New nonspecific soft tissue swelling at the elbow. 2. 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 No significant change compared to the prior study from 2017. Procedures 07/22/17 Irrigation and debridement, excision of olecranon bursa left elbow, application wound vac Objective Remarks LUE: Wound vac is in place with good seal, mild surrounding erythema with pink hue, no drainage, minimal pain with ROM attempts of elbow, no pain with wrist ROM, good cap refill, neurovascularly intact. Assessment & Plan Ortho Post Op Day #: 1 Problem List: (1) Infection of left olecranon bursa ICD Codes: M71.122 - Other infective bursitis, left elbow Status: Acute Assessment and Plan POD #1 Irrigation and debridement, excision of olecranon bursa left elbow, application wound vac Ortho status stable, progress rehab ROM. NWB SUSIE. Cx grew out staph species, Abx per infectious disease. Pt will require renal diet with sap security architect order. No longer requires NPO. Start wound vac changes on ,, schedule - wound care to be provided at that time from wound care nurse. Clear from d/c from an orthopedic standpoint . Will require home sticker machine operator. F/U with Dr Gonzalez or myself in 7-10 days. Jenny Vidal July 23, 2017 07:58
--- NOTE | 2017-07-23 08:18 | EKG ---
Date Performed: 07/21/2017 Time Performed: 18:52:50 PTAGE: 81 years EKG: ATRIAL FIBRILLATION MARKED LEFT AXIS DEVIATION LEFT BUNDLE BRANCH BLOCK ABNORMAL ECG INTERP RETATION BASED ON A DEFAULT AGE OF 40 YEARS NO PREVIOUS TRACING DOCTOR: Agapito Calhoun Interpretating Date/Time 07/23/2017 08:14:18
[2017-07-23] MEDS: CALCIUM ACETATE 667 MG CAP PO SCH ×3 (09:00→18:03)
[2017-07-23] MEDS: ALBUMIN 25% INJ 100 ML IV PRN (09:10)
[2017-07-23 10:02] LABS: HEMATOCRIT 41.9 % (39.0-51.0); HEMOGLOBIN 13.6 GM/DL (13.0-17.0); MEAN CELL VOLUME 99.5 FL (80.0-100.0); MEAN CORPUSCULAR HEMOGLOBIN 32.4 PG (27.0-34.0); MEAN CORPUSCULAR HGB CONC 32.5 % (32.0-36.0); MEAN PLATELET VOLUME 7.3 FL (7.0-11.0); PLATELET COUNT 180 TH/MM3 (150-450); RED BLOOD COUNT 4.21 MIL/MM3 (4.50-5.90); RED CELL DISTRIBUTION WIDTH 15.4 % (11.6-17.2); WHITE BLOOD COUNT 8.8 TH/MM3 (4.0-11.0)
[2017-07-23 10:15] LABS: INTERNATIONAL NORMALIZED RATIO 2.1 RATIO; PROTHROMBIN TIME - PATIENT 20.8 SEC (9.8-11.6)
[2017-07-23 10:39] LABS: ALBUMIN 2.4 GM/DL (3.4-5.0); BICARBONATE 24.4 MEQ/L (21.0-32.0); CALCIUM 7.6 MG/DL (8.5-10.1); CREATININE 6.31 MG/DL (0.60-1.30); PHOSPHORUS 3.8 MG/DL (2.5-4.9)
--- NOTE | 2017-07-23 11:57 | HHI.NPPN ---
Subjective History of Present Illness The patient is an 81 yo [place] male who is known to our services for ESRD on HD. He presented to the ED on 523 with complaints of L elbow pain. He has had known bursitis and has been having aspirated periodically. The bursa had become more painful and red so the patient decided to come to the ED for eval. patient now status post I&D of same. Pus was found. Review of Systems General Constitutional: Fatigue Objective Data Data Vital Signs Date Time Temp Pulse Resp B/P (MAP) Pulse Ox O2 Delivery O2 Flow Rate FiO2 07/23/17 09:59 97 Nasal Cannula 2.00 07/23/17 08:00 97.3 121 18 96/59 (71) 98 07/23/17 06:15 97.6 114 22 90/52 (65) 97 07/23/17 04:01 100 07/23/17 04:01 Nasal Cannula 2.00 07/23/17 03:27 Nasal Cannula 2.00 07/23/17 00:10 97.3 96 22 94/54 (67) 99 07/23/17 00:10 Nasal Cannula 2.00 07/22/17 23:49 89 07/22/17 23:39 92 07/22/17 22:06 90/64 (73) 07/22/17 21:00 97.3 99 20 86/63 (71) 96 07/22/17 20:44 119 12 95/58 (70) 95 Nasal Cannula 2 07/22/17 20:25 121 12 96/62 (73) 96 Nasal Cannula 2 07/22/17 20:15 119 12 109/79 (89) 96 Nasal Cannula 2 07/22/17 20:05 119 15 99/65 (76) 96 Nasal Cannula 2 07/22/17 20:00 119 15 101/62 (75) 96 Nasal Cannula 2 07/22/17 19:45 130 15 108/63 (78) 98 Nasal Cannula 2 07/22/17 19:38 129 15 103/58 (73) 98 Nasal Cannula 2 07/22/17 19:33 97.4 130 15 104/66 (79) 99 Nasal Cannula 2 07/22/17 16:00 97.4 83 18 113/73 (86) 97 07/22/17 14:00 Room Air 07/22/17 12:00 97.1 76 16 90/55 (67) 95 -: 07/23/17 0738 07/23/17 0738 Microbiology 07/22/17 Fungal Smear - Final, Resulted NO FUNGAL ELEMENTS SEEN. 07/22/17 Fungal Culture, Resulted Pending 07/22/17 Acid Fast Stain, Received Pending 07/22/17 Mycobacterial Culture, Received Pending 07/22/17 Gram Stain - Final, Resulted 07/22/17 Wound Culture, Resulted Pending Medication Review Current Medications Lidocaine/ Epinephrine (Xylocaine-Epi 1%-1:100,000 Inj) 50 ml ONCE ONCE INFIL ; Start 07/21/17 at 15:30; Stop 07/21/17 at 15:33; Status DC Sodium Chloride 1,000 ml @ 1,000 mls/hr Q1H IV Last administered on 07/21/17at 16:35; Start 07/21/17 at 15:25; Stop 07/21/17 at 16:24; Status DC Vancomycin HCl 1000 mg/Sodium Chloride 250 ml @ 250 mls/hr ONCE ONCE IV Last administered on 07/21/17at 16:36; Start 07/21/17 at 16:15; Stop 07/21/17 at 17:14 ; Status DC Dextrose (D50w (Syr) Inj) 25 ml ONCE ONCE IV PUSH ; Start 07/21/17 at 19:00; Stop 07/21/17 at 19:46; Status DC Calcium Gluconate 1 gm/Sodium Chloride 100 ml @ 100 mls/hr ONCE ONCE IV ; Start 07/21/17 at 19:00; Stop 07/21/17 at 19:46; Status DC Potassium Chloride (KCl) 60 meq ONCE ONCE PO ; Start 07/21/17 at 19:00; Stop at 19:00; Status DC Potassium Chloride 100 ml @ 50 mls/hr BOLUS ONCE IV ; Start 07/21/17 at 19:00 ; Stop 07/21/17 at 20:24; Status DC Potassium Chloride (KCl) 40 meq ONCE ONCE PO ; Start 07/21/17 at 19:00; Stop at 19:46; Status DC Sodium Chloride 1,000 ml @ 1,000 mls/hr Q1H IV Last administered on 07/21/17at 19:50; Start 07/21/17 at 19:04; Stop 07/21/17 at 20:03; Status DC Sodium Chloride (NS Flush) 2 ml UNSCH PRN IV FLUSH FLUSH AFTER USING IV ACCESS ; Start 07/21/17 at 20:00; Stop 07/22/17 at 19:29; Status DC Sodium Chloride (NS Flush) 2 ml BID IV FLUSH ; Start 07/21/17 at 21:00; Stop at 19:29; Status DC Acetaminophen (Tylenol) 650 mg Q4H PRN PO LOZA, fever, pain 1-4; Start 07/21/17 at 20:00 Ondansetron HCl (Zofran Odt) 4 mg Q6H PRN PO NAUSEA OR VOMITING; Start at 20:00 Naloxone HCl (Narcan Inj) 0.4 mg UNSCH PRN IV PUSH SEE LABEL COMMENTS; Start at 20:00 Magnesium Hydroxide (Milk Of Magnesia Liq) 30 ml Q12H PRN PO Mild constipation ; Start 07/21/17 at 20:00 Sennosides (Senokot) 17.2 mg Q12H PRN PO Moderate constipation; Start 07/21/17 at 20:00 Bisacodyl (Dulcolax Supp) 10 mg DAILY PRN RECTAL SEVERE CONSITIPATION; Start at 20:00 Lactulose (Lactulose Liq) 30 ml DAILY PRN PO SEVERE CONSITIPATION; Start at 20:00 Cefazolin Sodium/ Dextrose 50 ml @ 100 mls/hr Q8H IV Last administered on 07/23at 01:04; Start 07/22/17 at 01:00; Stop 07/23/17 at 08:33; Status DC Amiodarone HCl (Cordarone) 200 mg BID PO ; Start 07/22/17 at 09:00 Calcium Acetate (Phoslo) 667 mg TID PO ; Start 07/22/17 at 09:00 Diltiazem HCl (Cardizem Cd) 180 mg BID PO ; Start 07/22/17 at 09:00; Stop at 09:00; Status DC Enalapril Maleate (Vasotec) 5 mg DAILY PO ; Start 07/22/17 at 09:00; Status Future Hold Ropinirole HCl (Requip) 2 mg TID PO ; Start 07/22/17 at 09:00 Non-Formulary Medication 1 drop BID LEFT EYE ; Start 07/22/17 at 09:00; Stop at 09:00; Status DC Pantoprazole Sodium (Protonix) 20 mg DAILY PO ; Start 07/22/17 at 09:00 Metoprolol Tartrate (Lopressor) 25 mg Q12HR PO ; Start 07/22/17 at 09:00; Status Future Hold Brimonidine Tartrate (Alphagan 0.2% Opth Soln) 1 drop Q12HR LEFT EYE Last administered on 07/22/17at 22:38; Start 07/22/17 at 09:00 Timolol Maleate (Timoptic 0.5% Opth Soln) 1 drop Q12HR LEFT EYE Last administered on 07/22/17at 22:38; Start 07/22/17 at 09:00 Sodium Chloride 1,000 ml @ 999 mls/hr BOLUS ONCE IV Last administered on 07/22at 01:43; Start 07/22/17 at 01:15; Stop 07/22/17 at 02:15; Status DC Sodium Chloride 1,000 ml @ 100 mls/hr Q10H IV Last administered on 07/22/17at 01:43; Start 07/22/17 at 01:15; Stop 07/22/17 at 09:26; Status DC Diltiazem HCl (Cardizem Cd) 180 mg DAILY PO ; Start 07/22/17 at 09:00; Status Future Hold Temazepam (Restoril) 15 mg ONCE ONCE PO Last administered on 07/22/17at 03:52; Start 07/22/17 at 03:00; Stop 07/22/17 at 03:01; Status DC Morphine Sulfate (Morphine Inj) 2 mg Q4H PRN IV PUSH PAIN 5-10 Last administered on 07/23/17at 01:32; Start 07/22/17 at 08:15 Midodrine (Proamatine) 5 mg TID@07,12,17 PO Last administered on 07/23/17at 05: 54; Start 07/22/17 at 17:00 Sodium Chloride 1,000 ml @ 0 mls/hr Q0M PRN OTHER For Prime & Rinse Back; Start 07/22/17 at 14:41 Heparin Sodium (Porcine) (Heparin Inj) 8,000 units UNSCH PRN IV FLUSH WITH DIALYSIS; Start 07/22/17 at 14:45 Sodium Chloride 1,000 ml @ 200 mls/hr Q5H PRN IV WITH DIALYSIS; Start 07/22/17 at 14:41 Sodium Chloride 1,000 ml @ 0 mls/hr Q0M PRN OTHER WITH DIALYSIS; Start at 14:41 Mannitol (Mannitol Inj) 12.5 gm UNSCH PRN IV WITH DIALYSIS; Start 07/22/17 at 14:45 Albumin Human 100 ml @ 60 mls/hr UNSCH PRN IV WITH DIALYSIS; Start 07/22/17 at 14:45 Sodium Chloride (NS Flush) 5 ml UNSCH PRN IV FLUSH WITH DIALYSIS; Start at 14:45 Heparin Sodium (Porcine) (Heparin Inj) UNSCH PRN .XX WITH DIALYSIS; Start at 14:45 Gentamicin Sulfate (Gentamicin Inj) 20 mg UNSCH PRN OTHER WITH DIALYSIS; Start 07/22/17 at 14:45 Ondansetron HCl (Zofran Inj) 4 mg UNSCH PRN IV PUSH WITH DIALYSIS; Start at 14:45; Stop 07/22/17 at 15:10; Status DC Acetaminophen (Tylenol) 650 mg UNSCH PRN PO for headach, pain, temp > 101F; Start 07/22/17 at 14:45 Diphenhydramine HCl (Benadryl) 25 mg UNSCH PRN PO for hives/itching/anaphylaxis ; Start 07/22/17 at 14:45 Nitroglycerin (Nitrostat Sl) 0.4 mg UNSCH PRN SL CHEST PAIN; Start 07/22/17 at 14:45 Clonidine (Catapres) 0.1 mg UNSCH PRN PO for BP > 180/100 X 2 readings; Start 07/22/17 at 14:45 Gelatin (Gelfoam 12 Mm/7 Mm Top) 1 foam UNSCH PRN TOP SEE LABEL COMMENTS; Start 07/22/17 at 14:45 Ondansetron HCl (Zofran Odt) 4 mg UNSCH PRN PO WITH DIALYSIS; Start 07/22/17 at 15:15 Neomycin/Polymyxin (Neosporin G.u. Irr) 2 ml STK-MED ONCE .ROUTE ; Start at 17:16; Stop 07/22/17 at 17:17; Status DC Fentanyl Citrate (fentaNYL INJ) 200 mcg STK-MED ONCE .ROUTE ; Start 07/22/17 at 18:51; Stop 07/22/17 at 18:52; Status DC Sodium Chloride (NS Flush) 2 ml UNSCH PRN IV FLUSH FLUSH AFTER USING IV ACCESS ; Start 07/22/17 at 19:30 Sodium Chloride (NS Flush) 2 ml BID IV FLUSH Last administered on 07/22/17at 21: 00; Start 07/22/17 at 21:00 Metoprolol Tartrate (Lopressor Inj) 5 mg STK-MED ONCE .ROUTE Last administered on 07/22/17at 19:54; Start 07/22/17 at 19:54; Stop 07/22/17 at 19:55; Status DC Hydromorphone HCl (*DILAUDID PF INJ PERIprocedure ONLY) 0.5 mg STK-MED ONCE .ROUTE Last administered on 07/22/17at 20:14; Start 07/22/17 at 20:14; Stop at 20:15; Status DC Miscellaneous Information ([facility]) ALL NURSING DEPARTME... UNSCH PRN .XX SEE LABEL COMMENTS; Start 07/22/17 at 21:15; Stop 07/23/17 at 21: 14 Metoprolol Tartrate (Lopressor Inj) 2 mg NOW ONCE IV PUSH ; Start 07/22/17 at 21:15; Stop 07/22/17 at 21:16; Status DC Hydromorphone HCl (Dilaudid Pf Inj) 0.5 mg NOW ONCE IV ; Start 07/22/17 at 21: 15; Stop 07/22/17 at 21:16; Status DC Cefazolin Sodium 1000 mg/Sodium Chloride 100 ml @ 200 mls/hr Q12H IV ; Start at 13:00 Physical Exam General Appearance: No Acute Distress, Comfortable Eyes Eye Exam: Sclera White Pulmonary Resp Exam: Clear Bilaterally, Breath Sounds Equal Cardiology CV Exam: Irregular Gastrointestinal/Abdomen GI Exam: Soft, Non-Tender Integumentary Skin Exam: Clear, Warm Neurologic Neuro Exam: Alert, Awake, Speech Clear Assessment/Plan Discussed Condition With: Patient Problem List: (1) ESRD (end stage renal disease) on dialysis ICD Codes: N18.6 - End stage renal failure on dialysis; Z99.2 - Dependence on renal dialysis Status: Acute Plan: Continue on HD MWF as before Patient tolerating his dialysis. 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 Continue midodrine. Continue on calcium acetate Medications should be adjusted for the patient's ESRD. Avoid gadolinium. (2) Hypotension ICD Codes: I95.9 - Hypotension, unspecified Plan: BP meds have been held D/C IVF given ESRD Will start on Midodrine for support. Noted preliminary BCx positive for GPC. Started on Cefazolin Await finalization. (3) Bacteremia ICD Codes: R78.81 - Bacteremia Status: Acute Plan: Coag negative staph. Would like an opinion from ID if primary care physician agrees. (4) Olecranon bursitis, left elbow ICD Codes: M70.22 - Olecranon bursitis, left elbow Plan: Management as per ortho (5) Atrial fibrillation with RVR ICD Codes: I48.91 - Unspecified atrial fibrillation Status: Acute Plan: Cardizem and Lopressor currently on hold secondary to hypotension. Will like an opinion from cardiology regarding management of atrial fibrillation in view of patient's hypotension. Alice Murcia MD July 23, 2017 11:57
[2017-07-23] MEDS: GELATIN 12 MM/7 MM FOAM TOP PRN (12:00)
--- NOTE | 2017-07-23 13:11 | HHI.PR ---
Subjective Remarks in no acute distress. pain seems to be fairly controlled. no fever. d/w the RN. Objective Vitals Vital Signs Date Time Temp Pulse Resp B/P (MAP) Pulse Ox O2 Delivery O2 Flow Rate FiO2 07/23/17 09:59 97 Nasal Cannula 2.00 07/23/17 08:00 97.3 121 18 96/59 (71) 98 07/23/17 08:00 Nasal Cannula 2.00 07/23/17 07:59 121 07/23/17 06:15 97.6 114 22 90/52 (65) 97 07/23/17 04:01 100 07/23/17 04:01 Nasal Cannula 2.00 07/23/17 03:27 Nasal Cannula 2.00 07/23/17 00:10 97.3 96 22 94/54 (67) 99 07/23/17 00:10 Nasal Cannula 2.00 07/22/17 23:49 89 07/22/17 23:39 92 07/22/17 22:06 90/64 (73) 07/22/17 21:00 97.3 99 20 86/63 (71) 96 07/22/17 20:44 119 12 95/58 (70) 95 Nasal Cannula 2 07/22/17 20:25 121 12 96/62 (73) 96 Nasal Cannula 2 07/22/17 20:15 119 12 109/79 (89) 96 Nasal Cannula 2 07/22/17 20:05 119 15 99/65 (76) 96 Nasal Cannula 2 07/22/17 20:00 119 15 101/62 (75) 96 Nasal Cannula 2 07/22/17 19:45 130 15 108/63 (78) 98 Nasal Cannula 2 07/22/17 19:38 129 15 103/58 (73) 98 Nasal Cannula 2 07/22/17 19:33 97.4 130 15 104/66 (79) 99 Nasal Cannula 2 07/22/17 16:00 97.4 83 18 113/73 (86) 97 07/22/17 14:00 Room Air I/O 07/22/17 07/22/17 07/22/17 07/23/17 07/23/17 07/23/17 07:00 15:00 23:00 07:00 15:00 23:00 Intake Total 200 ml 140 ml Output Total 50 ml 2000 ml Balance 150 ml 140 ml -2000 ml Intake Oral 90 ml IV Total 50 ml Other 200 ml Output Hemodialysis 2000 ml Estimated Blood Loss 50 ml Result Diagram: 07/23/17 0738 07/23/17 0738 Imaging Last Impressions Elbow X-Ray 07/21/17 0000 Signed Impressions: CONCLUSION: 1. New nonspecific soft tissue swelling at the elbow. 2. 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 No significant change compared to the prior study from 2017. Objective Remarks GENERAL: elderly male, in no apparent distress. CARDIOVASCULAR: Regular rate and regular rhythm without murmurs, gallops, or rubs. RESPIRATORY: Clear to auscultation. Breath sounds equal bilaterally. No wheezes , rales, or rhonchi. GASTROINTESTINAL: Abdomen soft, non-tender, nondistended. Normal, active bowel sounds MUSCULOSKELETAL:erythema/ swelling of the left olecranon NEURO: awake and alert Procedures Irrigation and debridement, excision of olecranon bursa left elbow Medications and IVs Inpatient Medications Acetaminophen (Tylenol) 650 mg UNSCH PRN PO for headach, pain, temp > 101F; Start 07/22/17 at 14:45 Albumin Human 100 ml @ 60 mls/hr UNSCH PRN IV WITH DIALYSIS Last administered on 07/23/17at 09:10; Start 07/22/17 at 14:45 Amiodarone HCl (Cordarone) 200 mg BID PO ; Start 07/22/17 at 09:00 Bisacodyl (Dulcolax Supp) 10 mg DAILY PRN RECTAL SEVERE CONSITIPATION; Start at 20:00 Brimonidine Tartrate (Alphagan 0.2% Opt Soln) 1 drop Q12HR LEFT EYE Last administered on 07/22/17at 22:38; Start 07/22/17 at 09:00 Calcium Acetate (Phoslo) 667 mg TID PO ; Start 07/22/17 at 09:00 Calcium Gluconate 1 gm/Sodium Chloride 100 ml @ 100 mls/hr ONCE ONCE IV ; Start 07/21/17 at 19:00; Stop 07/21/17 at 19:46; Status DC Cefazolin Sodium 1000 mg/Sodium Chloride 100 ml @ 200 mls/hr Q12H IV ; Start at 13:00 Cefazolin Sodium/ Dextrose 50 ml @ 100 mls/hr Q8H IV Last administered on 07/23at 01:04; Start 07/22/17 at 01:00; Stop 07/23/17 at 08:33; Status DC Clonidine (Catapres) 0.1 mg UNSCH PRN PO for BP > 180/100 X 2 readings; Start 07/22/17 at 14:45 Dextrose (D50w (Syr) Inj) 25 ml ONCE ONCE IV PUSH ; Start 07/21/17 at 19:00; Stop 07/21/17 at 19:46; Status DC Diltiazem HCl (Cardizem Cd) 180 mg DAILY PO ; Start 07/22/17 at 09:00; Status Future Hold Diphenhydramine HCl (Benadryl) 25 mg UNSCH PRN PO for hives/itching/anaphylaxis ; Start 07/22/17 at 14:45 Enalapril Maleate (Vasotec) 5 mg DAILY PO ; Start 07/22/17 at 09:00; Status Future Hold Gelatin (Gelfoam 12 Mm/7 Mm Top) 1 foam UNSCH PRN TOP SEE LABEL COMMENTS Last administered on 07/23/17at 12:00; Start 07/22/17 at 14:45 Gentamicin Sulfate (Gentamicin Inj) 20 mg UNSCH PRN OTHER WITH DIALYSIS; Start 07/22/17 at 14:45 Heparin Sodium (Porcine) (Heparin Inj) UNSCH PRN .XX WITH DIALYSIS; Start at 14:45 Hydromorphone HCl (Dilaudid Pf Inj) 0.5 mg NOW ONCE IV ; Start 07/22/17 at 21: 15; Stop 07/22/17 at 21:16; Status DC Lactulose (Lactulose Liq) 30 ml DAILY PRN PO SEVERE CONSITIPATION; Start at 20:00 Lidocaine/ Epinephrine (Xylocaine-Epi 1%-1:100,000 Inj) 50 ml ONCE ONCE INFIL ; Start 07/21/17 at 15:30; Stop 07/21/17 at 15:33; Status DC Magnesium Hydroxide (Milk Of Magnesia Liq) 30 ml Q12H PRN PO Mild constipation ; Start 07/21/17 at 20:00 Mannitol (Mannitol Inj) 12.5 gm UNSCH PRN IV WITH DIALYSIS; Start 07/22/17 at 14:45 Metoprolol Tartrate (Lopressor Inj) 2 mg NOW ONCE IV PUSH ; Start 07/22/17 at 21:15; Stop 07/22/17 at 21:16; Status DC Metoprolol Tartrate (Lopressor) 25 mg Q12HR PO ; Start 07/22/17 at 09:00; Status Future Hold Midodrine (Proamatine) 5 mg TID@07,12,17 PO Last administered on 07/23/17at 05: 54; Start 07/22/17 at 17:00 Miscellaneous Information ([facility] Nursing Information) ALL NURSING DEPARTME... UNSCH PRN .XX SEE LABEL COMMENTS; Start 07/22/17 at 21:15; Stop 07/23/17 at 21: 14 Morphine Sulfate (Morphine Inj) 2 mg Q4H PRN IV PUSH PAIN 5-10 Last administered on 07/23/17at 01:32; Start 07/22/17 at 08:15 Naloxone HCl (Narcan Inj) 0.4 mg UNSCH PRN IV PUSH SEE LABEL COMMENTS; Start at 20:00 Nitroglycerin (Nitrostat Sl) 0.4 mg UNSCH PRN SL CHEST PAIN; Start 07/22/17 at 14:45 Non-Formulary Medication 1 drop BID LEFT EYE ; Start 07/22/17 at 09:00; Stop at 09:00; Status DC Ondansetron HCl (Zofran Odt) 4 mg UNSCH PRN PO WITH DIALYSIS; Start 07/22/17 at 15:15 Ondansetron HCl (Zofran Inj) 4 mg UNSCH PRN IV PUSH WITH DIALYSIS; Start at 14:45; Stop 07/22/17 at 15:10; Status DC Pantoprazole Sodium (Protonix) 20 mg DAILY PO ; Start 07/22/17 at 09:00 Potassium Chloride (KCl) 40 meq ONCE ONCE PO ; Start 07/21/17 at 19:00; Stop at 19:46; Status DC Ropinirole HCl (Requip) 2 mg TID PO ; Start 07/22/17 at 09:00 Sennosides (Senokot) 17.2 mg Q12H PRN PO Moderate constipation; Start 07/21/17 at 20:00 Sodium Chloride (NS Flush) 2 ml BID IV FLUSH Last administered on 07/22/17at 21: 00; Start 07/22/17 at 21:00 Temazepam (Restoril) 15 mg ONCE ONCE PO Last administered on 07/22/17at 03:52; Start 07/22/17 at 03:00; Stop 07/22/17 at 03:01; Status DC Timolol Maleate (Timoptic 0.5% Opt Soln) 1 drop Q12HR LEFT EYE Last administered on 07/22/17at 22:38; Start 07/22/17 at 09:00 Vancomycin HCl 1000 mg/Sodium Chloride 250 ml @ 250 mls/hr ONCE ONCE IV Last administered on 07/21/17at 16:36; Start 07/21/17 at 16:15; Stop 07/21/17 at 17:14 ; Status DC A/P Problem List: (1) Olecranon bursitis, left elbow ICD Code: M70.22 - Olecranon bursitis, left elbow (2) ESRD (end stage renal disease) on dialysis ICD Code: N18.6 - End stage renal failure on dialysis; Z99.2 - Dependence on renal dialysis Status: Acute (3) Atrial fibrillation Status: Chronic Assessment and Plan Left elbow olecranon bursitis Hypotension - s/p Irrigation and debridement, excision of olecranon bursa left elbow - continue on Ancef 2g Q8hrs. -received a dose of Vancomycin on 07/21. staph bacteremia; on antibiotics as noted above- ID consulted. ESRD -on HD- per nephrology. Atrial fibrillation - continue Amiodarone 200mg BID. Consideration should be given to d/c Amiodarone, will leave it upto patient's art therapist. - hold Cardizem and Metoprolol due to hypotension. - will resume Coumadin. DVT prophylaxis; on Coumadin. Discharge Planning for ortho intervention. Ruby Nice MD July 23, 2017 13:11
[2017-07-23] MEDS: AMIODARONE 200 MG TAB PO SCH ×2 (13:31→21:03)
[2017-07-23] MEDS: ceFAZolin 1,000 MG/NS 100 ML IV SCH ×2 (13:31)
[2017-07-23] MEDS: PANTOPRAZOLE SOD 20 MG DELAYED RELEASE TAB PO SCH (13:31)
[2017-07-23] MEDS: BRIMONIDINE TARTRATE 0.2% OPHT SOLN 5 ML BTL LEFT EYE SCH ×2 (13:32→21:06)
[2017-07-23] MEDS: TIMOLOL MALEATE 0.5% OPHT SOLN 5 ML BTL LEFT EYE SCH ×2 (13:32→21:07)
[2017-07-23] MEDS: SODIUM CHLORIDE 0.9% FLUSH 10 ML FLUSH IV FLUSH SCH ×2 (13:32→21:03)
[2017-07-23] MEDS ORDERED: DIGOXIN 0.5 MG/2 ML VIAL IV PUSH ONE (16:30)
--- NOTE | 2017-07-23 16:44 | MB ---
cc: Agapito Calhoun MD, Hanscy MD Patel,Altaf Nice,Ruby Gonzalez,Axel Kasper MD DATE: 07/23/2017 REASON FOR CONSULTATION: Atrial fibrillation with biventricular response, unable to control with medication. HISTORY OF PRESENT ILLNESS: Mr. Redd is an 81-year-old gentleman with a history of high blood pressure, renal failure, atrial fibrillation on anticoagulation, heart rate was controlled for years who was admitted due to infection at the left elbow. Debridement was performed. During hospitalization, he developed atrial fibrillation with biventricular response. Blood pressure was low, heart rate unable to control. I was consulted for evaluation and management. The chart was given. The patient was evaluated. ALLERGIES: CLINDAMYCIN AND CIPROFLOXACIN. SOCIAL HISTORY: The gentleman is negative for smoking and drinking. FAMILY HISTORY: Noncontributory to his current medical condition. MEDICATIONS: 1. Cardizem-CD 100 mg twice a day. 2. Requip. 3. Enalapril 5 mg a day. 4. Omeprazole. 5. Levoxyl. 6. Amiodarone 200 mg twice a day. 7. Metoprolol. 8. Coumadin as directed. 9. Ancef 2 grams every 8 hours. REVIEW OF SYSTEMS: He referred feeling tired and has a lot of palpitation, but no chest pain, no chest discomfort. PHYSICAL EXAMINATION: GENERAL: Alert, fully oriented. VITAL SIGNS: His blood pressure 106/71, pulse 133, respiratory rate 18-20. LUNGS: Ventilated. CARDIOVASCULAR: S1, S2. No gallop. Tachycardic, irregular. ABDOMEN: Soft. No mass. No bruits. EXTREMITIES: There is a bandage on the left arm. CARDIOLOGY STUDIES: Electrocardiogram showed atrial fibrillation, left bundle branch block, diffuse ST-T changes. Previous electrocardiogram showed episode of V-pacing. LABORATORY DATA: Hemoglobin is 13.6, white blood cell 8.3. Potassium is 5.1, creatinine 6.31. The patient is on hemodialysis. INR 2.1. ASSESSMENT AND RECOMMENDATIONS: Mr. Valle currently is completely disoriented. I have been seeing Mr. Redd for at least 10 years and today I do not think he recognized me properly. I had to start a long conversation with him before he figured it out and I am not even sure if he figured it out. He is in bed. He is eating. His condition has gotten worse over the years. Heart rate is in atrial fibrillation with biventricular response, heart rate difficult to control. He is on metoprolol. He is on Cardizem. He is on amiodarone. I just added digoxin 0.5 mg IV 1 dose. I am aware that the patient is on hemodialysis. He has a pacemaker. For now, we will continue observation. Rate control is the objective. Systolic blood pressure was in the 90s on the monitor when I was seeing the gentleman. There is not enough room for maneuver with negative chronotropic medication. At this point, we will continue observation, medical management. If heart rate cannot be controlled, he is not a good candidate for atrial fibrillation ablation, but for AV node modification. One of my partners will monitor him during the weekend. I will see him after the weekend if necessary. MD OMI Mayes/ , 04:09 PM , 04:44 PM
--- NOTE | 2017-07-23 18:27 | PD.ID.CON ---
History of Present Illness Service Infectious disease Consult Requested By Reason for Consult Evaluation and management of left elbow septic arthritis and staph bacteremia. Primary Care Physician Altaf Florez M.D. Diagnoses: History of Present Illness Mr. Valle is an 81-year-old male with past medical history significant for A. fib, history of cardiac ablation, history of pacemaker, end-stage renal disease on hemodialysis Wednesday. Of note patient appears to have had aspiration of the left elbow on July 09 with growth of staph lugdenensis. Patient reports that he has been following up with Dr. Gonzalez his orthopedic surgeon and was started on amoxicillin. Due to persistent swelling and pain in his left elbow patient presented to the emergency department on July 21, 2017. ED contacted Dr. Gonzalez his orthopedic surgeon and patient underwent incision and drainage of the abscess. Intra-Op cultures are pending. Patient also had blood cultures drawn on admission which are now positive for coag negative staph. At the time of my evaluation patient is admitted to the floor. Was alert opens his eyes and is able to provide me some brief history. Although does not appear to be very reliable. Per review of records it appears that he has a history of signing off AGAINST MEDICAL ADVICE in the past. Unsure if he was compliant with his medications as his medication administration record for home meds is not show amoxicillin as one of the meds for him. Infectious disease is consulted for evaluation and management of left elbow septic arthritis and staph coag negative bacteremia. Review of Systems ROS Limitations: Poor Historian Musculoskeletal: COMPLAINS OF: Joint pain, Joint Swelling Past Family Social History Allergies: Coded Allergies: clindamycin (Verified Allergy, Severe, Rash, 07/21/17) ciprofloxacin (Verified Allergy, Unknown, 07/21/17) Past Medical History History of bursitis History of aspiration on July 09, 2017 of the left elbow: Cultures positive for staph ligamentous patient was being treated with reportedly amoxicillin per patient's report Past Surgical History Aspiration of the left elbow Reported Medications Reported Meds & Active Scripts Active Walker with Front Wheels (Device) 1 Mis Mis Ea .ROUTE DIRECTED Reported Calcium Acetate (Phosphate Binder) 667 Mg Cap 1 Cap PO TID Cardizem CD 24 HR (Diltiazem CD 24 HR) 180 Mg Caper 180 Mg PO BID Vitamin C (Ascorbic Acid) 250 Mg Tab 300 Mg PO Alpha Lipoic Acid 200 Mg Cap 200 Mg PO DIRECTED Requip (Ropinirole HCl) 2 Mg Tab 2 Mg PO TID Enalapril (Enalapril Maleate) 5 Mg Tab 5 Mg PO DAILY Dorzolamide Opth Drops (Dorzolamide HCl) 2% Soln 1 Drop LEFT EYE BID Combigan Opth Drops (Brimonidine-Timolol Opth Drops) 0.2-0.5% Soln 1 Drop LEFT EYE BID Omeprazole 20 Mg Cap 1 Cap PO DAILY Levothyroxine (Levothyroxine Sodium) 50 Mcg Tab 1 Tab PO DAILY Dialyvite 800 (B-Complex W/ C & Folic Acid) 1 Tab 1 Tab PO DAILY Amiodarone (Amiodarone HCl) 200 Mg Tab 1 Tab PO BID Metoprolol Succinate ER 24 HR (Metoprolol Succinate) 50 Mg Tab 0.5 Tab PO BID Warfarin 5 Mg Tab 1 Tab PO DAILY Active Ordered Medications Current Medications Medications (Trade) Dose Ordered Sig/Sara Route Start Time Stop Time Status Last Admin (Tylenol) 650 mg Q4H PRN PO 07/21/17 20:00 (Zofran Odt) 4 mg Q6H PRN PO 07/21/17 20:00 (Narcan Inj) 0.4 mg UNSCH PRN IV PUSH 07/21/17 20:00 (Milk Of Magnesia Liq) 30 ml Q12H PRN PO 07/21/17 20:00 (Senokot) 17.2 mg Q12H PRN PO 07/21/17 20:00 (Dulcolax Supp) 10 mg DAILY PRN RECTAL 07/21/17 20:00 (Lactulose Liq) 30 ml DAILY PRN PO 07/21/17 20:00 (Cordarone) 200 mg BID PO 07/22/17 09:00 07/23/17 13:31 (Phoslo) 667 mg TID PO 07/22/17 09:00 07/23/17 18:03 (Vasotec) 5 mg DAILY PO 07/22/17 09:00 Future Hold (Requip) 2 mg TID PO 07/22/17 09:00 07/23/17 18:03 (Protonix) 20 mg DAILY PO 07/22/17 09:00 07/23/17 13:31 (Lopressor) 25 mg Q12HR PO 5/24/18 09:00 Future Hold (Alphagan 0.2% Opth Soln) 1 drop Q12HR LEFT EYE 07/22/17 09:00 07/23/17 13:32 (Timoptic 0.5% Opth Soln) 1 drop Q12HR LEFT EYE 07/22/17 09:00 07/23/17 13:32 (Cardizem Cd) 180 mg DAILY PO 07/22/17 09:00 Future Hold (Morphine Inj) 2 mg Q4H PRN IV PUSH 07/22/17 08:15 07/23/17 01:32 (Proamatine) 5 mg TID@07,12,17 PO 07/22/17 17:00 07/23/17 18:03 Sodium Chloride 1,000 ml @ 0 mls/hr Q0M PRN OTHER 07/22/17 14:41 07/23/17 12:00 (Heparin Inj) 8,000 units UNSCH PRN IV FLUSH 07/22/17 14:45 Sodium Chloride 1,000 ml @ 200 mls/hr Q5H PRN IV 07/22/17 14:41 Sodium Chloride 1,000 ml @ 0 mls/hr Q0M PRN OTHER 07/22/17 14:41 (Mannitol Inj) 12.5 gm UNSCH PRN IV 07/22/17 14:45 Albumin Human 100 ml @ 60 mls/hr UNSCH PRN IV 07/22/17 14:45 07/23/17 09:10 (NS Flush) 5 ml UNSCH PRN IV FLUSH 07/22/17 14:45 (Heparin Inj) UNSCH PRN .XX 07/22/17 14:45 (Gentamicin Inj) 20 mg UNSCH PRN OTHER 07/22/17 14:45 (Tylenol) 650 mg UNSCH PRN PO 07/22/17 14:45 (Benadryl) 25 mg UNSCH PRN PO 07/22/17 14:45 (Nitrostat Sl) 0.4 mg UNSCH PRN SL 07/22/17 14:45 (Catapres) 0.1 mg UNSCH PRN PO 07/22/17 14:45 (Gelfoam 12 Mm/7 Mm Top) 1 foam UNSCH PRN TOP 07/22/17 14:45 07/23/17 12:00 (Zofran Odt) 4 mg UNSCH PRN PO 07/22/17 15:15 (NS Flush) 2 ml UNSCH PRN IV FLUSH 07/22/17 19:30 (NS Flush) 2 ml BID IV FLUSH 07/22/17 21:00 07/23/17 13:32 ([facility] [place] [facility]) ALL NURSING DEPARTME... UNSCH PRN .XX 07/22/17 21:15 07/23/17 21:14 Cefazolin Sodium 1000 mg/Sodium Chloride 100 ml @ 200 mls/hr Q12H IV 07/23/17 13:00 07/23/17 13:31 (Coumadin) 5 mg DAILY@1600 PO 07/24/17 16:00 (Coumadin Booklet) 1 ONCE ONCE .XX 07/24/17 16:00 07/24/17 16:01 Vancomycin HCl 1500 mg/Sodium Chloride 515 ml @ 257.5 mls/ hr ONCE ONCE IV 07/23/17 18:30 07/23/17 20:29 UNV Family History Reviewed and noncontributory to current infectious disease problem. Social History Could not be obtained. Physical Exam Vital Signs Vital Signs Date Time Temp Pulse Resp B/P (MAP) Pulse Ox O2 Delivery O2 Flow Rate FiO2 07/23/17 17:29 100 Nasal Cannula 2.00 07/23/17 16:02 97.9 117 18 95 07/23/17 12:00 97.2 133 18 106/71 (83) 100 07/23/17 09:59 97 Nasal Cannula 2.00 07/23/17 08:00 97.3 121 18 96/59 (71) 98 07/23/17 08:00 Nasal Cannula 2.00 07/23/17 07:59 121 07/23/17 06:15 97.6 114 22 90/52 (65) 97 07/23/17 04:01 100 07/23/17 04:01 Nasal Cannula 2.00 07/23/17 03:27 Nasal Cannula 2.00 07/23/17 00:10 97.3 96 22 94/54 (67) 99 07/23/17 00:10 Nasal Cannula 2.00 07/22/17 23:49 89 07/22/17 23:39 92 07/22/17 22:06 90/64 (73) 07/22/17 21:00 97.3 99 20 86/63 (71) 96 07/22/17 20:44 119 12 95/58 (70) 95 Nasal Cannula 2 07/22/17 20:25 121 12 96/62 (73) 96 Nasal Cannula 2 07/22/17 20:15 119 12 109/79 (89) 96 Nasal Cannula 2 07/22/17 20:05 119 15 99/65 (76) 96 Nasal Cannula 2 07/22/17 20:00 119 15 101/62 (75) 96 Nasal Cannula 2 07/22/17 19:45 130 15 108/63 (78) 98 Nasal Cannula 2 07/22/17 19:38 129 15 103/58 (73) 98 Nasal Cannula 2 07/22/17 19:33 97.4 130 15 104/66 (79) 99 Nasal Cannula 2 Physical Exam GENERAL: Elderly, well-developed patient, in no apparent distress. SKIN: No rashes, ecchymoses or lesions. Cool and dry. HEAD: Atraumatic. Normocephalic. No temporal or scalp tenderness. EYES: Pupils equal round and reactive. Extraocular motions intact. No scleral icterus. No injection or drainage. ENT: Nose without bleeding, purulent drainage or septal hematoma. Throat without erythema, tonsillar hypertrophy or exudate. Uvula midline. Airway patent. NECK: Trachea midline.Supple, nontender, no meningeal signs. CARDIOVASCULAR: Heart sounds audible. Murmur appreciated. RESPIRATORY: Clear to auscultation. Breath sounds equal bilaterally. No wheezes , rales, or rhonchi. GASTROINTESTINAL: Abdomen soft, non-tender, nondistended. MUSCULOSKELETAL: Left elbow with wound VAC. Wound VAC with sanguinous discharge noted in the canister. NEUROLOGICAL: Awake and alert. Nonfocal exam. Psych cooperative IV line sites with no evidence of infection. Laboratory Laboratory Tests Test 07/23/17 07:38 White Blood Count 8.8 Red Blood Count 4.21 Hemoglobin 13.6 Hematocrit 41.9 Mean Corpuscular Volume 99.5 Mean Corpuscular Hemoglobin 32.4 Mean Corpuscular Hemoglobin Concent 32.5 Red Cell Distribution Width 15.4 Platelet Count 180 Mean Platelet Volume 7.3 Prothrombin Time 20.8 Prothromb Time International Ratio 2.1 Blood Urea Nitrogen 45 Creatinine 6.31 Random Glucose 60 Albumin 2.4 Calcium Level 7.6 Phosphorus Level 3.8 Sodium Level 142 Potassium Level 5.1 Chloride Level 105 Carbon Dioxide Level 24.4 Anion Gap 13 Estimat Glomerular Filtration Rate 9 Date/Time Source Procedure Growth Status 07/21/17 16:00 Blood Peripheral Aerobic Blood Culture - Preliminary Staph Sp Coagulase Negative Resulted 07/21/17 16:00 Anaerobic Blood Culture - Preliminary Gram Positive Cocci Resulted 07/22/17 18:58 Wound Elbow Fungal Smear - Final NO FUNGAL ELEMENTS SEEN. Resulted 07/22/17 18:58 Wound Elbow Fungal Culture Pending Resulted Result Diagram: 07/23/17 0738 07/23/17 0738 Imaging Last Impressions Elbow X-Ray 07/21/17 0000 Signed Impressions: CONCLUSION: 1. New nonspecific soft tissue swelling at the elbow. 2. 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 No significant change compared to the prior study from 2017. Assessment and Plan Assessment and Plan Left elbow septic arthritis status post irrigation and drainage. Left elbow aspiration with evidence of staph lobe denounces Staph coag negative bacteremia. End-stage renal disease on hemodialysis using right upper extremity AV fistula( patient undergoes dialysis on Wednesday's) Hypotension ? cardiac meds induced. Less likely sepsis related. Recommendations Repeat blood cultures 2 Check CRP Vancomycin 1500 mg 1 Continue Ancef for now pending cultures. Check 2 D ECHO to r/o dissemination Follow cultures Follow clinically to cover for me this weekend. Ana Madden MD July 23, 2017 18:27
[2017-07-23 19:23] LABS: C-REACTIVE PROTEIN 8.2 MG/DL (0.00-0.30)
[2017-07-23] MEDS ORDERED: VANCOMYCIN INJ 1,500 MG in SODIUM CHLORID 0.9% 500 ML INJ 500 ML IV ONE (20:00)
[2017-07-24] VITALS (8 sets, daily range): BP systolic 94–110; BP diastolic 50–61; PULSE 69–98; RESP 18–20; TEMP 97.5–97.9; O2SAT 93–100
[2017-07-24] MEDS: ceFAZolin 1,000 MG/NS 100 ML IV SCH ×4 (01:48→12:27)
[2017-07-24] MEDS: MIDODRINE 5 MG TAB PO SCH ×3 (06:39→17:19)
[2017-07-24 07:48] LABS: PROTHROMBIN TIME - PATIENT 20.7 SEC (9.8-11.6)
--- NOTE | 2017-07-24 08:27 | PD.ORT.PN ---
Subjective Subjective Remarks pt complaining of right ankle and foot pain for the past four days, denies any left elbow pain Objective Vitals Vital Signs Date Time Temp Pulse Resp B/P (MAP) Pulse Ox O2 Delivery O2 Flow Rate FiO2 07/24/17 04:00 97.5 69 20 107/52 (70) 93 07/24/17 04:00 70 07/24/17 00:00 71 07/24/17 00:00 97.7 69 20 110/61 (77) 100 07/23/17 20:00 98.2 102 20 108/82 (91) 93 07/23/17 20:00 Nasal Cannula 2.00 07/23/17 20:00 94 07/23/17 17:29 100 Nasal Cannula 2.00 07/23/17 17:00 98/52 (67) 07/23/17 16:02 97.9 117 18 95 07/23/17 16:00 80/50 (60) 07/23/17 16:00 117 07/23/17 12:00 131 07/23/17 12:00 97.2 133 18 106/71 (83) 100 07/23/17 09:59 97 Nasal Cannula 2.00 I/O 07/23/17 07/23/17 07/23/17 07/24/17 07/24/17 07/24/17 07:00 15:00 23:00 07:00 15:00 23:00 Intake Total 140 ml 875 ml 120 ml Output Total 2000 ml 0 ml Balance 140 ml -2000 ml 875 ml 120 ml Intake Oral 90 ml 360 ml 120 ml IV Total 50 ml 515 ml Output Urine Total 0 ml Hemodialysis 2000 ml # Voids 0 # Bowel Movements 0 0 Result Diagram: 07/23/17 0738 07/23/17 0738 Other Results Laboratory Tests Test 07/24/17 06:52 Prothromb Time International Ratio 2.0 RATIO Prothrombin Time 20.7 SEC (9.8-11.6) Imaging Last Impressions Elbow X-Ray 07/21/17 0000 Signed Impressions: CONCLUSION: 1. New nonspecific soft tissue swelling at the elbow. 2. 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 No significant change compared to the prior study from 2017. Procedures 07/22/17 Irrigation and debridement, excision of olecranon bursa left elbow, application wound vac Objective Remarks LUE: Wound vac is in place with good seal, mild surrounding erythema with pink hue, no drainage, minimal pain with ROM attempts of elbow, no pain with wrist ROM, good cap refill, neurovascularly intact RLE: patient has pain and tenderness right ankle and foot with mild palpation, no deformity is noted Assessment & Plan Problem List: (1) Infection of left olecranon bursa ICD Codes: M71.122 - Other infective bursitis, left elbow Status: Acute Assessment and Plan POD #2 Irrigation and debridement, excision of olecranon bursa left elbow, application wound vac Ortho status stable, progress rehab ROM. NWB LUE. Cx grew out staph species, Abx per infectious disease. Pt will require renal diet with card doffer order. No longer requires NPO. Start wound vac changes on ,, schedule - wound care to be provided at that time from wound care nurse. Ordering right ankle and foot x-ray, portable . Will require home senior enlisted advisor. F/U with Dr Gonzalez or myself in 7-10 days. Atul Sauceda MD July 24, 2017 08:27
--- NOTE | 2017-07-24 09:43 | RADRPT ---
EXAM DATE: 07/24/2017 9:38 AM EDT AGE/SEX: 81 years / Male INDICATIONS: Right foot pain. No previous trauma. CLINICAL DATA: This is the patient's initial encounter. Patient reports that signs and symptoms have been present for 3 days and indicates a pain score of 10/10. MEDICAL/SURGICAL HISTORY: . Left elbow bursitis. None. COMPARISON: No prior [facility] exams available for comparison. FINDINGS: Bony structures are intact and in normal alignment. Osseous density is osteopenic. Mild degenerative changes involving the first metatarsal-phalangeal joint and DIP joints. Soft tissues are unremarkable . No radiopaque foreign bodies seen. Vascular calcifications are seen in the soft tissues. CONCLUSION: Osteopenia of the bony structures with some primary degenerative changes at the first metatarsal-phal angeal joint. Electronically signed by: Dmitry Garza MD 07/24/2017 9:42 AM EDT
--- NOTE | 2017-07-24 09:44 | RADRPT ---
EXAM DATE: 07/24/2017 9:41 AM EDT AGE/SEX: 81 years / Male INDICATIONS: Right ankle pain. No prior trauma. CLINICAL DATA: This is the patient's initial encounter. Patient reports that signs and symptoms have been present for 3 days and indicates a pain score of 10/10. MEDICAL/SURGICAL HISTORY: . Left elbow bursitis. None. COMPARISON: No prior [facility] exams available for comparison. FINDINGS: Bony structures are intact and in normal alignment. Joints are intact without dislocation. Mild dege nerative changes are noted at the mortise joint. Osseous density is osteopenic. Soft tissues are un remarkable. No radiopaque foreign bodies seen. Vascular calcifications are seen in the soft tissues . CONCLUSION: Osteopenia of the bony structures with some mild degenerative changes at the mortise joint. Electronically signed by: Dmitry Garza MD 07/24/2017 9:43 AM EDT
--- NOTE | 2017-07-24 09:56 | PD.CARD.PN ---
Subjective Subjective Remarks Denies CP, dyspnea, palpitations, dizziness. Objective Medications Item Value Date Time Warfarin Sodium 5 mg 07/24/17 1600 (Coumadin) DAILY@1600/PO Amiodarone HCl 200 mg 07/22/17 0900 (Cordarone) BID/PO 07/23/172102 Current Medications Medications (Trade) Dose Ordered Sig/Sara Route Start Time Stop Time Status Last Admin (Tylenol) 650 mg Q4H PRN PO 07/21/17 20:00 (Zofran Odt) 4 mg Q6H PRN PO 07/21/17 20:00 (Narcan Inj) 0.4 mg UNSCH PRN IV PUSH 07/21/17 20:00 (Milk Of Magnesia Liq) 30 ml Q12H PRN PO 07/21/17 20:00 (Senokot) 17.2 mg Q12H PRN PO 07/21/17 20:00 (Dulcolax Supp) 10 mg DAILY PRN RECTAL 07/21/17 20:00 (Lactulose Liq) 30 ml DAILY PRN PO 07/21/17 20:00 (Cordarone) 200 mg BID PO 07/22/17 09:00 07/23/17 21:03 (Phoslo) 667 mg TID PO 07/22/17 09:00 07/23/17 18:03 (Vasotec) 5 mg DAILY PO 07/22/17 09:00 Future Hold (Requip) 2 mg TID PO 07/22/17 09:00 07/23/17 18:03 (Protonix) 20 mg DAILY PO 07/22/17 09:00 07/23/17 13:31 (Lopressor) 25 mg Q12HR PO 07/22/17 09:00 Future Hold (Alphagan 0.2% Opth Soln) 1 drop Q12HR LEFT EYE 07/22/17 09:00 07/23/17 21:06 (Timoptic 0.5% Opth Soln) 1 drop Q12HR LEFT EYE 07/22/17 09:00 07/23/17 21:07 (Cardizem Cd) 180 mg DAILY PO 07/22/17 09:00 Future Hold (Morphine Inj) 2 mg Q4H PRN IV PUSH 07/22/17 08:15 07/23/17 01:32 (Proamatine) 5 mg TID@07,12,17 PO 07/22/17 17:00 07/24/17 06:39 Sodium Chloride 1,000 ml @ 0 mls/hr Q0M PRN OTHER 07/22/17 14:41 07/23/17 12:00 (Heparin Inj) 8,000 units UNSCH PRN IV FLUSH 07/22/17 14:45 Sodium Chloride 1,000 ml @ 200 mls/hr Q5H PRN IV 07/22/17 14:41 Sodium Chloride 1,000 ml @ 0 mls/hr Q0M PRN OTHER 07/22/17 14:41 (Mannitol Inj) 12.5 gm UNSCH PRN IV 07/22/17 14:45 Albumin Human 100 ml @ 60 mls/hr UNSCH PRN IV 07/22/17 14:45 07/23/17 09:10 (NS Flush) 5 ml UNSCH PRN IV FLUSH 07/22/17 14:45 (Heparin Inj) UNSCH PRN .XX 07/22/17 14:45 (Gentamicin Inj) 20 mg UNSCH PRN OTHER 07/22/17 14:45 (Tylenol) 650 mg UNSCH PRN PO 07/22/17 14:45 (Benadryl) 25 mg UNSCH PRN PO 07/22/17 14:45 (Nitrostat Sl) 0.4 mg UNSCH PRN SL 07/22/17 14:45 (Catapres) 0.1 mg UNSCH PRN PO 07/22/17 14:45 (Gelfoam 12 Mm/7 Mm Top) 1 foam UNSCH PRN TOP 07/22/17 14:45 07/23/17 12:00 (Zofran Odt) 4 mg UNSCH PRN PO 07/22/17 15:15 (NS Flush) 2 ml UNSCH PRN IV FLUSH 07/22/17 19:30 (NS Flush) 2 ml BID IV FLUSH 07/22/17 21:00 07/23/17 21:03 Cefazolin Sodium 1000 mg/Sodium Chloride 100 ml @ 200 mls/hr Q12H IV 07/23/17 13:00 07/24/17 01:48 (Coumadin) 5 mg DAILY@1600 PO 07/24/17 16:00 (Coumadin Booklet) 1 ONCE ONCE .XX 07/24/17 16:00 07/24/17 16:01 Vital Signs / I&O Vital Signs Date Time Temp Pulse Resp B/P (MAP) Pulse Ox O2 Delivery O2 Flow Rate FiO2 07/24/17 09:04 95 Nasal Cannula 3.00 07/24/17 04:00 97.5 69 20 107/52 (70) 93 07/24/17 04:00 70 07/24/17 00:00 71 07/24/17 00:00 97.7 69 20 110/61 (77) 100 07/23/17 20:00 98.2 102 20 108/82 (91) 93 07/23/17 20:00 Nasal Cannula 2.00 07/23/17 20:00 94 07/23/17 17:29 100 Nasal Cannula 2.00 07/23/17 17:00 98/52 (67) 07/23/17 16:02 97.9 117 18 95 07/23/17 16:00 80/50 (60) 07/23/17 16:00 117 07/23/17 12:00 131 07/23/17 12:00 97.2 133 18 106/71 (83) 100 07/23/17 09:59 97 Nasal Cannula 2.00 I/O 07/23/17 07/23/17 07/23/17 07/24/17 07/24/17 07/24/17 07:00 15:00 23:00 07:00 15:00 23:00 Intake Total 140 ml 875 ml 120 ml Output Total 2000 ml 0 ml Balance 140 ml -2000 ml 875 ml 120 ml Intake Oral 90 ml 360 ml 120 ml IV Total 50 ml 515 ml Output Urine Total 0 ml Hemodialysis 2000 ml # Voids 0 # Bowel Movements 0 0 Physical Exam GENERAL: Well developed, thin. No acute distress. HEENT: Jugular venous pressure is normal. CHEST: Lungs clear to auscultation anteriorly. CARDIAC: Irregular rate and rhythm without S3, S4. II/ OLIVIA base with moderately diminished S2. ABDOMEN: Soft, nontender, no hepatosplenomegaly. Bowel sounds present. EXTREMITIES: No clubbing, cyanosis, or edema. Laboratory Laboratory Tests Test 07/24/17 06:52 Prothrombin Time 20.7 SEC Prothromb Time International Ratio 2.0 RATIO Imaging Last 24 hours Impressions Foot X-Ray 07/24/17 0000 Signed Impressions: CONCLUSION: Osteopenia of the bony structures with some primary degenerative changes at the first metatarsal-phalangeal joint. Ankle X-Ray 07/24/17 0000 Signed Impressions: CONCLUSION: Osteopenia of the bony structures with some mild degenerative changes at the mo rtise joint. Assessment and Plan Problem List: (1) Atrial fibrillation Status: Chronic Plan: HR's better controlled today. BP's still too low to resume Cardizem or metoprolol. INR therapeutic. Continues on oral Amiodarone. Recommend no changes. Code Status full code Discussed Condition With patient Problem Qualifiers (1) Atrial fibrillation: Qualified Codes: I48.2 - Chronic atrial fibrillation Jacek Diaz MD July 24, 2017 09:56
[2017-07-24] MEDS: CALCIUM ACETATE 667 MG CAP PO SCH ×3 (09:58→17:19)
[2017-07-24] MEDS: PANTOPRAZOLE SOD 20 MG DELAYED RELEASE TAB PO SCH (09:58)
[2017-07-24] MEDS: TIMOLOL MALEATE 0.5% OPHT SOLN 5 ML BTL LEFT EYE SCH ×2 (09:59→20:57)
[2017-07-24] MEDS: BRIMONIDINE TARTRATE 0.2% OPHT SOLN 5 ML BTL LEFT EYE SCH ×2 (09:59→20:57)
[2017-07-24] MEDS: AMIODARONE 200 MG TAB PO SCH ×2 (09:59→20:58)
[2017-07-24] MEDS: SODIUM CHLORIDE 0.9% FLUSH 10 ML FLUSH IV FLUSH SCH ×2 (09:59→20:58)
--- NOTE | 2017-07-24 10:02 | HHI.IDPN ---
Subjective Subjective Remarks ID COVERAGE Mr. Valle is an 81-year-old male with past medical history significant for A. fib, history of cardiac ablation, history of pacemaker, end-stage renal disease on hemodialysis Wednesday. Of note patient appears to have had aspiration of the left elbow on July 09 with growth of staph lugdenensis. Patient reports that he has been following up with Dr. Gonzalez his orthopedic surgeon and was started on amoxicillin. Due to persistent swelling and pain in his left elbow patient presented to the emergency department on July 21, 2017. ED contacted Dr. Gonzalez his orthopedic surgeon and patient underwent incision and drainage of the abscess. Intra-Op cultures are pending. Patient also had blood cultures drawn on admission which are now positive for coag negative staph. At the time of my evaluation patient is admitted to the floor. Was alert opens his eyes and is able to provide me some brief history. Although does not appear to be very reliable. Per review of records it appears that he has a history of signing off AGAINST MEDICAL ADVICE in the past. Unsure if he was compliant with his medications as his medication administration record for home meds is not show amoxicillin as one of the meds for him. Infectious disease is consulted for evaluation and management of left elbow septic arthritis and staph coag negative bacteremia. Notes reviewed Afebrile States his elbow feels fine Complaining of pain in the buttocks as well as in his right leg 1 of the blood culture on admission with 2 different coag negative staph from the aerobic and anaerobic bottle Second set no ID yet Repeat blood culture pending Elbow culture pending Antibiotics Ancef Current Medications Medications (Trade) Dose Ordered Sig/Sara Route Start Time Stop Time Status Last Admin (Tylenol) 650 mg Q4H PRN PO 07/21/17 20:00 (Zofran Odt) 4 mg Q6H PRN PO 07/21/17 20:00 (Narcan Inj) 0.4 mg UNSCH PRN IV PUSH 07/21/17 20:00 (Milk Of Magnesia Liq) 30 ml Q12H PRN PO 07/21/17 20:00 (Senokot) 17.2 mg Q12H PRN PO 07/21/17 20:00 (Dulcolax Supp) 10 mg DAILY PRN RECTAL 07/21/17 20:00 (Lactulose Liq) 30 ml DAILY PRN PO 07/21/17 20:00 (Cordarone) 200 mg BID PO 07/22/17 09:00 07/23/17 21:03 (Phoslo) 667 mg TID PO 07/22/17 09:00 07/23/17 18:03 (Vasotec) 5 mg DAILY PO 07/22/17 09:00 Future Hold (Requip) 2 mg TID PO 07/22/17 09:00 07/23/17 18:03 (Protonix) 20 mg DAILY PO 07/22/17 09:00 07/23/17 13:31 (Lopressor) 25 mg Q12HR PO 07/22/17 09:00 Future Hold (Alphagan 0.2% Opth Soln) 1 drop Q12HR LEFT EYE 07/22/17 09:00 07/23/17 21:06 (Timoptic 0.5% Opth Soln) 1 drop Q12HR LEFT EYE 07/22/17 09:00 07/23/17 21:07 (Cardizem Cd) 180 mg DAILY PO 07/22/17 09:00 Future Hold (Morphine Inj) 2 mg Q4H PRN IV PUSH 07/22/17 08:15 07/23/17 01:32 (Proamatine) 5 mg TID@07,12,17 PO 07/22/17 17:00 07/24/17 06:39 Sodium Chloride 1,000 ml @ 0 mls/hr Q0M PRN OTHER 07/22/17 14:41 07/23/17 12:00 (Heparin Inj) 8,000 units UNSCH PRN IV FLUSH 07/22/17 14:45 Sodium Chloride 1,000 ml @ 200 mls/hr Q5H PRN IV 07/22/17 14:41 Sodium Chloride 1,000 ml @ 0 mls/hr Q0M PRN OTHER 07/22/17 14:41 (Mannitol Inj) 12.5 gm UNSCH PRN IV 07/22/17 14:45 Albumin Human 100 ml @ 60 mls/hr UNSCH PRN IV 07/22/17 14:45 07/23/17 09:10 (NS Flush) 5 ml UNSCH PRN IV FLUSH 07/22/17 14:45 (Heparin Inj) UNSCH PRN .XX 07/22/17 14:45 (Gentamicin Inj) 20 mg UNSCH PRN OTHER 07/22/17 14:45 (Tylenol) 650 mg UNSCH PRN PO 07/22/17 14:45 (Benadryl) 25 mg UNSCH PRN PO 07/22/17 14:45 (Nitrostat Sl) 0.4 mg UNSCH PRN SL 07/22/17 14:45 (Catapres) 0.1 mg UNSCH PRN PO 07/22/17 14:45 (Gelfoam 12 Mm/7 Mm Top) 1 foam UNSCH PRN TOP 07/22/17 14:45 07/23/17 12:00 (Zofran Odt) 4 mg UNSCH PRN PO 07/22/17 15:15 (NS Flush) 2 ml UNSCH PRN IV FLUSH 07/22/17 19:30 (NS Flush) 2 ml BID IV FLUSH 07/22/17 21:00 07/23/17 21:03 Cefazolin Sodium 1000 mg/Sodium Chloride 100 ml @ 200 mls/hr Q12H IV 07/23/17 13:00 07/24/17 01:48 (Coumadin) 5 mg DAILY@1600 PO 07/24/17 16:00 (Coumadin Booklet) 1 ONCE ONCE .XX 07/24/17 16:00 07/24/17 16:01 Lines PIV no evidence of infection Past Medical History History of bursitis History of aspiration on July 09, 2017 of the left elbow: Cultures positive for staph ligamentous patient was being treated with reportedly amoxicillin per patient's report Past Surgical History Aspiration of the left elbow Allergies: Coded Allergies: clindamycin (Verified Allergy, Severe, Rash, 07/21/17) ciprofloxacin (Verified Allergy, Unknown, 07/21/17) Objective . Vital Signs Date Time Temp Pulse Resp B/P (MAP) Pulse Ox O2 Delivery O2 Flow Rate FiO2 07/24/17 09:04 95 Nasal Cannula 3.00 07/24/17 04:00 97.5 69 20 107/52 (70) 93 07/24/17 04:00 70 07/24/17 00:00 71 07/24/17 00:00 97.7 69 20 110/61 (77) 100 07/23/17 20:00 98.2 102 20 108/82 (91) 93 07/23/17 20:00 Nasal Cannula 2.00 07/23/17 20:00 94 07/23/17 17:29 100 Nasal Cannula 2.00 07/23/17 17:00 98/52 (67) 07/23/17 16:02 97.9 117 18 95 07/23/17 16:00 80/50 (60) 07/23/17 16:00 117 07/23/17 12:00 131 07/23/17 12:00 97.2 133 18 106/71 (83) 100 07/23/17 09:59 97 Nasal Cannula 2.00 . Laboratory Tests Test 07/23/17 07:38 White Blood Count 8.8 TH/MM3 Red Blood Count 4.21 MIL/MM3 Hemoglobin 13.6 GM/DL Hematocrit 41.9 % Mean Corpuscular Volume 99.5 FL Mean Corpuscular Hemoglobin 32.4 PG Mean Corpuscular Hemoglobin Concent 32.5 % Red Cell Distribution Width 15.4 % Platelet Count 180 TH/MM3 Mean Platelet Volume 7.3 FL Laboratory Tests Test 07/23/17 07:38 Blood Urea Nitrogen 45 MG/DL Creatinine 6.31 MG/DL Random Glucose 60 MG/DL Albumin 2.4 GM/DL Calcium Level 7.6 MG/DL Phosphorus Level 3.8 MG/DL Sodium Level 142 MEQ/L Potassium Level 5.1 MEQ/L Chloride Level 105 MEQ/L Carbon Dioxide Level 24.4 MEQ/L Anion Gap 13 MEQ/L Estimat Glomerular Filtration Rate 9 ML/MIN C-Reactive Protein 8.20 MG/DL Microbiology Date/Time Source Procedure Growth Status 07/23/17 18:40 Blood Peripheral Aerobic Blood Culture Pending Received 07/23/17 18:40 Blood Peripheral Anaerobic Blood Culture Pending Received 07/23/17 18:30 Blood Peripheral Aerobic Blood Culture Pending Received 07/23/17 18:30 Blood Peripheral Anaerobic Blood Culture Pending Received 07/21/17 16:00 Blood Peripheral Aerobic Blood Culture - Preliminary Staph Sp Coagulase Negative Resulted 07/21/17 16:00 Anaerobic Blood Culture - Preliminary Gram Positive Cocci Resulted 07/21/17 15:55 Blood Peripheral Aerobic Blood Culture - Final Staph Sp Coagulase Negative Complete 07/21/17 15:55 Anaerobic Blood Culture - Final Staph Sp Coagulase Negative Complete 07/22/17 18:58 Wound Elbow Fungal Smear - Final NO FUNGAL ELEMENTS SEEN. Resulted 07/22/17 18:58 Wound Elbow Fungal Culture Pending Resulted 07/22/17 18:58 Wound Elbow Acid Fast Stain Pending Received 07/22/17 18:58 Wound Elbow Mycobacterial Culture Pending Received 07/22/17 18:58 Wound Elbow Gram Stain - Final Resulted 07/22/17 18:58 Wound Elbow Wound Culture - Preliminary RESULTS PENDING Resulted 07/21/17 15:55 Wound Elbow Gram Stain - Final Complete 07/21/17 15:55 Wound Elbow Wound Culture - Final NO GROWTH IN 72 HRS.--AEROBICALLY OR ... Complete Imaging Last Impressions Foot X-Ray 07/24/17 0000 Signed Impressions: CONCLUSION: Osteopenia of the bony structures with some primary degenerative changes at the first metatarsal-phalangeal joint. Ankle X-Ray 07/24/17 0000 Signed Impressions: CONCLUSION: Osteopenia of the bony structures with some mild degenerative changes at the mo rtise joint. Elbow X-Ray 07/21/17 0000 Signed Impressions: CONCLUSION: 1. New nonspecific soft tissue swelling at the elbow. 2. 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 No significant change compared to the prior study from 2017. Physical Exam GENERAL: Elderly, well-developed patient, in no apparent distress. SKIN: No rashes, ecchymoses or lesions. Cool and dry. HEAD: Atraumatic. Normocephalic. No temporal or scalp tenderness. EYES: Pupils equal round and reactive. Extraocular motions intact. No scleral icterus. No injection or drainage. ENT: Nose without bleeding, purulent drainage or septal hematoma. Throat without erythema, tonsillar hypertrophy or exudate. Uvula midline. Airway patent. NECK: Trachea midline.Supple, nontender, no meningeal signs. CARDIOVASCULAR: Murmur appreciated. RESPIRATORY: Clear to auscultation. Breath sounds equal bilaterally. No wheezes , rales, or rhonchi. GASTROINTESTINAL: Abdomen soft, non-tender, nondistended. MUSCULOSKELETAL: Left elbow with wound VAC. Wound VAC with sanguinous discharge noted in the canister. NEUROLOGICAL: Awake and alert. Nonfocal exam. Psych cooperative IV line sites with no evidence of infection. Assessment & Plan Remarks Left elbow septic arthritis status post irrigation and drainage. Left elbow aspiration with evidence of staph lugdunensis Staph coag negative bacteremia. End-stage renal disease on hemodialysis using right upper extremity AV fistula( patient undergoes dialysis on Wednesday's) Hypotension ? cardiac meds induced. Less likely sepsis related. Recommendations Follow blood cultures Continue Ancef for now pending cultures. Check 2 D ECHO to r/o dissemination Follow cultures Follow clinically Discussed with Deisy Nevarez MD July 24, 2017 10:02
--- NOTE | 2017-07-24 11:50 | HHI.PR ---
Subjective Remarks in no acute distress. looks fairly comfortable. no fever. Objective Vitals Vital Signs Date Time Temp Pulse Resp B/P (MAP) Pulse Ox O2 Delivery O2 Flow Rate FiO2 07/24/17 09:04 95 Nasal Cannula 3.00 07/24/17 08:00 Nasal Cannula 3.00 07/24/17 08:00 97.9 76 20 102/50 (67) 98 07/24/17 04:00 97.5 69 20 107/52 (70) 93 07/24/17 04:00 70 07/24/17 00:00 71 07/24/17 00:00 97.7 69 20 110/61 (77) 100 07/23/17 20:00 98.2 102 20 108/82 (91) 93 07/23/17 20:00 Nasal Cannula 2.00 07/23/17 20:00 94 07/23/17 17:29 100 Nasal Cannula 2.00 07/23/17 17:00 98/52 (67) 07/23/17 16:02 97.9 117 18 95 07/23/17 16:00 80/50 (60) 07/23/17 16:00 117 07/23/17 12:00 131 07/23/17 12:00 97.2 133 18 106/71 (83) 100 I/O 07/23/17 07/23/17 07/23/17 07/24/17 07/24/17 07/24/17 07:00 15:00 23:00 07:00 15:00 23:00 Intake Total 140 ml 875 ml 120 ml Output Total 2000 ml 0 ml Balance 140 ml -2000 ml 875 ml 120 ml Intake Oral 90 ml 360 ml 120 ml IV Total 50 ml 515 ml Output Urine Total 0 ml Hemodialysis 2000 ml # Voids 0 # Bowel Movements 0 0 1 Result Diagram: 07/23/17 0738 07/23/17 0738 Imaging Last Impressions Foot X-Ray 07/24/17 0000 Signed Impressions: CONCLUSION: Osteopenia of the bony structures with some primary degenerative changes at the first metatarsal-phalangeal joint. Ankle X-Ray 07/24/17 0000 Signed Impressions: CONCLUSION: Osteopenia of the bony structures with some mild degenerative changes at the mo rtise joint. Elbow X-Ray 07/21/17 0000 Signed Impressions: CONCLUSION: 1. New nonspecific soft tissue swelling at the elbow. 2. 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 No significant change compared to the prior study from 2017. Objective Remarks GENERAL: elderly male, in no apparent distress. CARDIOVASCULAR: Regular rate and regular rhythm without murmurs, gallops, or rubs. RESPIRATORY: Clear to auscultation. Breath sounds equal bilaterally. No wheezes , rales, or rhonchi. GASTROINTESTINAL: Abdomen soft, non-tender, nondistended. Normal, active bowel sounds MUSCULOSKELETAL:erythema/ swelling of the left olecranon NEURO: awake and alert Procedures Irrigation and debridement, excision of olecranon bursa left elbow Medications and IVs Inpatient Medications Acetaminophen (Tylenol) 650 mg UNSCH PRN PO for headach, pain, temp > 101F; Start 07/22/17 at 14:45 Albumin Human 100 ml @ 60 mls/hr UNSCH PRN IV WITH DIALYSIS Last administered on 07/23/17at 09:10; Start 07/22/17 at 14:45 Amiodarone HCl (Cordarone) 200 mg BID PO Last administered on 07/24/17at 09:59; Start 07/22/17 at 09:00 Bisacodyl (Dulcolax Supp) 10 mg DAILY PRN RECTAL SEVERE CONSITIPATION; Start at 20:00 Brimonidine Tartrate (Alphagan 0.2% Opt Soln) 1 drop Q12HR LEFT EYE Last administered on 07/24/17at 09:59; Start 07/22/17 at 09:00 Calcium Acetate (Phoslo) 667 mg TID PO Last administered on 07/24/17at 09:58; Start 07/22/17 at 09:00 Calcium Gluconate 1 gm/Sodium Chloride 100 ml @ 100 mls/hr ONCE ONCE IV ; Start 07/21/17 at 19:00; Stop 07/21/17 at 19:46; Status DC Cefazolin Sodium 1000 mg/Sodium Chloride 100 ml @ 200 mls/hr Q12H IV Last administered on 07/24/17at 01:48; Start 07/23/17 at 13:00 Cefazolin Sodium/ Dextrose 50 ml @ 100 mls/hr Q8H IV Last administered on 07/23at 01:04; Start 07/22/17 at 01:00; Stop 07/23/17 at 08:33; Status DC Clonidine (Catapres) 0.1 mg UNSCH PRN PO for BP > 180/100 X 2 readings; Start 07/22/17 at 14:45 Dextrose (D50w (Syr) Inj) 25 ml ONCE ONCE IV PUSH ; Start 07/21/17 at 19:00; Stop 07/21/17 at 19:46; Status DC Digoxin (Lanoxin Inj) 0.5 mg ONCE ONCE IV PUSH Last administered on 07/23/17at 18:03; Start 07/23/17 at 16:30; Stop 07/23/17 at 16:31; Status DC Diltiazem HCl (Cardizem Cd) 180 mg DAILY PO ; Start 07/22/17 at 09:00; Status Future Hold Diphenhydramine HCl (Benadryl) 25 mg UNSCH PRN PO for hives/itching/anaphylaxis ; Start 07/22/17 at 14:45 Enalapril Maleate (Vasotec) 5 mg DAILY PO ; Start 07/22/17 at 09:00; Status Future Hold Gelatin (Gelfoam 12 Mm/7 Mm Top) 1 foam UNSCH PRN TOP SEE LABEL COMMENTS Last administered on 07/23/17at 12:00; Start 07/22/17 at 14:45 Gentamicin Sulfate (Gentamicin Inj) 20 mg UNSCH PRN OTHER WITH DIALYSIS; Start 07/22/17 at 14:45 Heparin Sodium (Porcine) (Heparin Inj) UNSCH PRN .XX WITH DIALYSIS; Start at 14:45 Hydromorphone HCl (Dilaudid Pf Inj) 0.5 mg NOW ONCE IV ; Start 07/22/17 at 21: 15; Stop 07/22/17 at 21:16; Status DC Lactulose (Lactulose Liq) 30 ml DAILY PRN PO SEVERE CONSITIPATION; Start at 20:00 Lidocaine/ Epinephrine (Xylocaine-Epi 1%-1:100,000 Inj) 50 ml ONCE ONCE INFIL ; Start 07/21/17 at 15:30; Stop 07/21/17 at 15:33; Status DC Magnesium Hydroxide (Milk Of Magnesia Liq) 30 ml Q12H PRN PO Mild constipation ; Start 07/21/17 at 20:00 Mannitol (Mannitol Inj) 12.5 gm UNSCH PRN IV WITH DIALYSIS; Start 07/22/17 at 14:45 Metoprolol Tartrate (Lopressor Inj) 2 mg NOW ONCE IV PUSH ; Start 07/22/17 at 21:15; Stop 07/22/17 at 21:16; Status DC Metoprolol Tartrate (Lopressor) 25 mg Q12HR PO ; Start 07/22/17 at 09:00; Status Future Hold Midodrine (Proamatine) 5 mg TID@07,12,17 PO Last administered on 07/24/17at 06: 39; Start 07/22/17 at 17:00 Miscellaneous Information ([facility] [place] [facility]) ALL NURSING DEPARTME... UNSCH PRN .XX SEE LABEL COMMENTS; Start 07/22/17 at 21:15; Stop 07/23/17 at 21: 14; Status DC Morphine Sulfate (Morphine Inj) 2 mg Q4H PRN IV PUSH PAIN 5-10 Last administered on 07/23/17at 01:32; Start 07/22/17 at 08:15 Naloxone HCl (Narcan Inj) 0.4 mg UNSCH PRN IV PUSH SEE LABEL COMMENTS; Start at 20:00 Nitroglycerin (Nitrostat Sl) 0.4 mg UNSCH PRN SL CHEST PAIN; Start 07/22/17 at 14:45 Non-Formulary Medication 1 drop BID LEFT EYE ; Start 07/22/17 at 09:00; Stop at 09:00; Status DC Ondansetron HCl (Zofran Odt) 4 mg UNSCH PRN PO WITH DIALYSIS; Start 07/22/17 at 15:15 Ondansetron HCl (Zofran Inj) 4 mg UNSCH PRN IV PUSH WITH DIALYSIS; Start at 14:45; Stop 07/22/17 at 15:10; Status DC Pantoprazole Sodium (Protonix) 20 mg DAILY PO Last administered on 07/24/17at 09 :58; Start 07/22/17 at 09:00 Patient Medication Teaching (Coumadin Booklet) 1 ONCE ONCE .XX ; Start at 16:00; Stop 07/24/17 at 16:01 Potassium Chloride (KCl) 40 meq ONCE ONCE PO ; Start 07/21/17 at 19:00; Stop at 19:46; Status DC Ropinirole HCl (Requip) 2 mg TID PO Last administered on 07/24/17at 09:58; Start 07/22/17 at 09:00 Sennosides (Senokot) 17.2 mg Q12H PRN PO Moderate constipation; Start 07/21/17 at 20:00 Sodium Chloride (NS Flush) 2 ml BID IV FLUSH Last administered on 07/24/17at 09: 59; Start 07/22/17 at 21:00 Temazepam (Restoril) 15 mg ONCE ONCE PO Last administered on 07/22/17at 03:52; Start 07/22/17 at 03:00; Stop 07/22/17 at 03:01; Status DC Timolol Maleate (Timoptic 0.5% Opt Sol) 1 drop Q12HR LEFT EYE Last administered on 07/24/17at 09:59; Start 07/22/17 at 09:00 Vancomycin HCl 1000 mg/Sodium Chloride 250 ml @ 250 mls/hr ONCE ONCE IV Last administered on 07/21/17at 16:36; Start 07/21/17 at 16:15; Stop 07/21/17 at 17:14 ; Status DC Vancomycin HCl 1500 mg/Sodium Chloride 515 ml @ 257.5 mls/ hr ONCE ONCE IV Last administered on 07/23/17at 21:03; Start 07/23/17 at 20:00; Stop 07/23/17 at 21:59; Status DC Warfarin Sodium (Coumadin) 5 mg DAILY@1600 PO ; Start 07/24/17 at 16:00 A/P Problem List: (1) Olecranon bursitis, left elbow ICD Code: M70.22 - Olecranon bursitis, left elbow (2) ESRD (end stage renal disease) on dialysis ICD Code: N18.6 - End stage renal failure on dialysis; Z99.2 - Dependence on renal dialysis Status: Acute (3) Atrial fibrillation Status: Chronic Assessment and Plan A/P Left elbow olecranon bursitis Hypotension - s/p Irrigation and debridement, excision of olecranon bursa left elbow - continue on Ancef 2g Q8hrs. -received a dose of Vancomycin on 07/21. -follow the cultures. staph bacteremia; on antibiotics as noted above- ID consulted.echo pending. ESRD -on HD- per nephrology. Atrial fibrillation - continue Amiodarone 200mg BID. 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 - hold Cardizem and Metoprolol due to hypotension. - will resume Coumadin. DVT prophylaxis; on Coumadin. Discharge Planning when cleared by ID and orth-pending echo and cultures. Problem Qualifiers (1) Atrial fibrillation: Qualified Codes: I48.2 - Chronic atrial fibrillation Ruby Nice MD July 24, 2017 11:50
--- NOTE | 2017-07-24 16:00 | HHI.NPPN ---
Subjective History of Present Illness The patient is an 81 yo [place] male who is known to our services for ESRD on HD. He presented to the ED on 523 with complaints of L elbow pain. He has had known bursitis and has been having aspirated periodically. The bursa had become more painful and red so the patient decided to come to the ED for eval. patient now status post I&D of same. Pus was found. Interval History Patient lying in bed. Appears somewhat confused but does recognize me. Not in respiratory distress. Review of Systems General Constitutional: Fatigue Objective Data Data 07/24/17 07/25/17 18:59 06:59 # Bowel Movements 1 Vital Signs Date Time Temp Pulse Resp B/P (MAP) Pulse Ox O2 Delivery O2 Flow Rate FiO2 07/24/17 12:00 97.7 72 20 110/55 (73) 96 07/24/17 12:00 69 07/24/17 12:00 94/50 (65) 07/24/17 09:04 95 Nasal Cannula 3.00 07/24/17 08:00 Nasal Cannula 3.00 07/24/17 08:00 97.9 76 20 102/50 (67) 98 07/24/17 04:00 97.5 69 20 107/52 (70) 93 07/24/17 04:00 70 07/24/17 00:00 71 07/24/17 00:00 97.7 69 20 110/61 (77) 100 07/23/17 20:00 98.2 102 20 108/82 (91) 93 07/23/17 20:00 Nasal Cannula 2.00 07/23/17 20:00 94 07/23/17 17:29 100 Nasal Cannula 2.00 07/23/17 17:00 98/52 (67) 07/23/17 16:02 97.9 117 18 95 07/23/17 16:00 80/50 (60) 07/23/17 16:00 117 -: 07/23/17 0738 07/23/17 0738 Microbiology 07/23/17 Aerobic Blood Culture - Preliminary, Resulted NO GROWTH IN 1 DAY 07/23/17 Anaerobic Blood Culture - Preliminary, Resulted NO GROWTH IN 1 DAY 07/23/17 Aerobic Blood Culture - Preliminary, Resulted NO GROWTH IN 1 DAY 07/23/17 Anaerobic Blood Culture - Preliminary, Resulted NO GROWTH IN 1 DAY Physical Exam General Appearance: No Acute Distress, Comfortable Eyes Eye Exam: Sclera White Pulmonary Resp Exam: Clear Bilaterally, Breath Sounds Equal Cardiology CV Exam: Irregular Gastrointestinal/Abdomen GI Exam: Soft, Non-Tender Integumentary Skin Exam: Clear, Warm Neurologic Neuro Exam: Alert, Awake, Speech Clear Assessment/Plan Discussed Condition With: Patient Problem List: (1) ESRD (end stage renal disease) on dialysis ICD Codes: N18.6 - End stage renal failure on dialysis; Z99.2 - Dependence on renal dialysis Status: Acute Plan: Continue on HD MWF as before Patient tolerating his dialysis. 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 Continue midodrine. Continue on calcium acetate Medications should be adjusted for the patient's ESRD. Avoid gadolinium. (2) Hypotension ICD Codes: I95.9 - Hypotension, unspecified Plan: Improved with midodrine. Continue same. Noted preliminary BCx positive for GPC. Started on Cefazolin Await finalization. (3) Bacteremia ICD Codes: R78.81 - Bacteremia Status: Acute Plan: Coag negative staph. Infectious disease consultation appreciated. (4) Olecranon bursitis, left elbow ICD Codes: M70.22 - Olecranon bursitis, left elbow Plan: Management as per ortho (5) Atrial fibrillation with RVR ICD Codes: I48.91 - Unspecified atrial fibrillation Status: Acute Plan: Cardiology consult appreciated. To continue on amiodarone for the present. Beta-moshe and Cardizem on hold secondary to hypotension. (6) Cognitive change ICD Codes: R41.89 - Other symptoms and signs involving cognitive functions and awareness Status: Chronic Plan: The patient has been showing some cognitive changes over the last few months. May be related to dementia. I will defer to primary care physician in regard to possibly have a neurology consultation. Alice Murcia MD July 24, 2017 16:00
[2017-07-24] MEDS: WARFARIN SOD 5 MG TAB PO SCH (17:19)
[2017-07-25] VITALS (9 sets, daily range): BP systolic 97–109; BP diastolic 52–58; PULSE 68–100; RESP 17–20; TEMP 96.1–97.8; O2SAT 94–99
[2017-07-25] MEDS: ceFAZolin 1,000 MG/NS 100 ML IV SCH ×4 (01:48→12:21)
[2017-07-25] MEDS: MIDODRINE 5 MG TAB PO SCH ×3 (05:52→16:58)
--- NOTE | 2017-07-25 09:02 | PD.ORT.PN ---
Subjective Subjective Remarks no complaints of left elbow pain, no complaints of right ankle/foot pain pt has history of thoracic spine/lumbar spine DDD/OA, scoliosis long hx of renal disease, has been on dialysis Objective Vitals Vital Signs Date Time Temp Pulse Resp B/P (MAP) Pulse Ox O2 Delivery O2 Flow Rate FiO2 07/25/17 04:00 Nasal Cannula 2.00 07/25/17 04:00 97.8 68 19 97/52 (67) 95 07/25/17 04:00 74 07/25/17 00:00 Nasal Cannula 2.00 07/25/17 00:00 97.6 100 17 102/58 (73) 94 07/25/17 00:00 70 07/24/17 20:00 97.8 79 18 105/52 (69) 95 07/24/17 20:00 86 07/24/17 19:30 Nasal Cannula 2.00 07/24/17 17:36 96 Nasal Cannula 3.00 07/24/17 16:00 102/54 (70) 07/24/17 16:00 85 07/24/17 12:00 97.7 72 20 110/55 (73) 96 07/24/17 12:00 69 07/24/17 12:00 94/50 (65) 07/24/17 09:04 95 Nasal Cannula 3.00 I/O 07/24/17 07/24/17 07/24/17 07/25/17 07/25/17 07/25/17 07:00 15:00 23:00 07:00 15:00 23:00 Intake Total 120 ml 720 ml Output Total 0 ml Balance 120 ml 720 ml Intake Oral 120 ml 720 ml Output Urine Total 0 ml # Voids 3 0 # Bowel Movements 0 1 1 0 Result Diagram: 07/23/17 0738 07/23/17 0738 Imaging Last Impressions Elbow X-Ray 07/21/17 0000 Signed Impressions: CONCLUSION: 1. New nonspecific soft tissue swelling at the elbow. 2. 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 No significant change compared to the prior study from 2017. Procedures 07/22/17 Irrigation and debridement, excision of olecranon bursa left elbow, application wound vac Objective Remarks LUE: Wound vac is in place with good seal, mild surrounding erythema with pink hue, no drainage, minimal pain with ROM attempts of elbow, no pain with wrist ROM, good cap refill, neurovascularly intact RLE: patient no longer has any pain and tenderness right ankle, no deformity is noted diminished palpable pulses lower extremities skin itself is clear Assessment & Plan Problem List: (1) Infection of left olecranon bursa ICD Codes: M71.122 - Other infective bursitis, left elbow Status: Acute Assessment and Plan POD #3 Irrigation and debridement, excision of olecranon bursa left elbow, application wound vac Ortho status stable, progress rehab ROM. NWGary RICHARDS. Cx grew out staph species, Abx per infectious disease. Pt will require renal diet with chuck tender order Start wound vac changes on ,, schedule - wound care to be provided at that time from wound care nurse. x-rays right ankle and foot came back no acute injury, degenerative changes Will require home pediatrics hospitalist. F/U with Dr Gonzalez or myself in 7-10 days. Kavitha Ortiz July 25, 2017 09:02
[2017-07-25] MEDS: TIMOLOL MALEATE 0.5% OPHT SOLN 5 ML BTL LEFT EYE SCH ×2 (09:43→21:21)
[2017-07-25] MEDS: CALCIUM ACETATE 667 MG CAP PO SCH ×3 (09:43→16:58)
[2017-07-25] MEDS: BRIMONIDINE TARTRATE 0.2% OPHT SOLN 5 ML BTL LEFT EYE SCH ×2 (09:43→21:21)
[2017-07-25] MEDS: PANTOPRAZOLE SOD 20 MG DELAYED RELEASE TAB PO SCH (09:43)
[2017-07-25] MEDS: AMIODARONE 200 MG TAB PO SCH ×2 (09:43→21:19)
[2017-07-25] MEDS: SODIUM CHLORIDE 0.9% FLUSH 10 ML FLUSH IV FLUSH SCH ×2 (09:45→21:19)
--- NOTE | 2017-07-25 11:42 | HHI.PR ---
Subjective Remarks in no acute distress. pain is controlled. no fever. Objective Vitals Vital Signs Date Time Temp Pulse Resp B/P (MAP) Pulse Ox O2 Delivery O2 Flow Rate FiO2 07/25/17 08:10 97.8 70 18 108/53 (71) 96 07/25/17 08:00 Nasal Cannula 2.00 07/25/17 08:00 75 07/25/17 04:00 Nasal Cannula 2.00 07/25/17 04:00 97.8 68 19 97/52 (67) 95 07/25/17 04:00 74 07/25/17 00:00 Nasal Cannula 2.00 07/25/17 00:00 97.6 100 17 102/58 (73) 94 07/25/17 00:00 70 07/24/17 20:00 97.8 79 18 105/52 (69) 95 07/24/17 20:00 86 07/24/17 19:30 Nasal Cannula 2.00 07/24/17 17:36 96 Nasal Cannula 3.00 07/24/17 16:00 102/54 (70) 07/24/17 16:00 85 07/24/17 12:00 97.7 72 20 110/55 (73) 96 07/24/17 12:00 69 07/24/17 12:00 94/50 (65) I/O 07/24/17 07/24/17 07/24/17 07/25/17 07/25/17 07/25/17 07:00 15:00 23:00 07:00 15:00 23:00 Intake Total 120 ml 720 ml Output Total 0 ml Balance 120 ml 720 ml Intake Oral 120 ml 720 ml Output Urine Total 0 ml # Voids 3 0 # Bowel Movements 0 1 1 0 Result Diagram: 07/23/17 0738 07/23/17 0738 Imaging Last Impressions Foot X-Ray 07/24/17 0000 Signed Impressions: CONCLUSION: Osteopenia of the bony structures with some primary degenerative changes at the first metatarsal-phalangeal joint. Ankle X-Ray 07/24/17 0000 Signed Impressions: CONCLUSION: Osteopenia of the bony structures with some mild degenerative changes at the mo rtise joint. Elbow X-Ray 07/21/17 0000 Signed Impressions: CONCLUSION: 1. New nonspecific soft tissue swelling at the elbow. 2. 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 No significant change compared to the prior study from 2017. Objective Remarks GENERAL: elderly male, in no apparent distress. CARDIOVASCULAR: Regular rate and regular rhythm without murmurs, gallops, or rubs. RESPIRATORY: Clear to auscultation. Breath sounds equal bilaterally. No wheezes , rales, or rhonchi. GASTROINTESTINAL: Abdomen soft, non-tender, nondistended. Normal, active bowel sounds MUSCULOSKELETAL:erythema/ swelling of the left olecranon NEURO: awake and alert Procedures Irrigation and debridement, excision of olecranon bursa left elbow Medications and IVs Inpatient Medications Acetaminophen (Tylenol) 650 mg UNSCH PRN PO for headach, pain, temp > 101F; Start 07/22/17 at 14:45 Albumin Human 100 ml @ 60 mls/hr UNSCH PRN IV WITH DIALYSIS Last administered on 07/23/17at 09:10; Start 07/22/17 at 14:45 Amiodarone HCl (Cordarone) 200 mg BID PO Last administered on 07/25/17at 09:43; Start 07/22/17 at 09:00 Bisacodyl (Dulcolax Supp) 10 mg DAILY PRN RECTAL SEVERE CONSITIPATION; Start at 20:00 Brimonidine Tartrate (Alphagan 0.2% Opt Soln) 1 drop Q12HR LEFT EYE Last administered on 07/25/17at 09:43; Start 07/22/17 at 09:00 Calcium Acetate (Phoslo) 667 mg TID PO Last administered on 07/25/17at 09:43; Start 07/22/17 at 09:00 Calcium Gluconate 1 gm/Sodium Chloride 100 ml @ 100 mls/hr ONCE ONCE IV ; Start 07/21/17 at 19:00; Stop 07/21/17 at 19:46; Status DC Cefazolin Sodium 1000 mg/Sodium Chloride 100 ml @ 200 mls/hr Q12H IV Last administered on 07/25/17at 01:48; Start 07/23/17 at 13:00 Cefazolin Sodium/ Dextrose 50 ml @ 100 mls/hr Q8H IV Last administered on 07/23at 01:04; Start 07/22/17 at 01:00; Stop 07/23/17 at 08:33; Status DC Clonidine (Catapres) 0.1 mg UNSCH PRN PO for BP > 180/100 X 2 readings; Start 07/22/17 at 14:45 Dextrose (D50w (Syr) Inj) 25 ml ONCE ONCE IV PUSH ; Start 07/21/17 at 19:00; Stop 07/21/17 at 19:46; Status DC Digoxin (Lanoxin Inj) 0.5 mg ONCE ONCE IV PUSH Last administered on 07/23/17at 18:03; Start 07/23/17 at 16:30; Stop 07/23/17 at 16:31; Status DC Diltiazem HCl (Cardizem Cd) 180 mg DAILY PO ; Start 07/22/17 at 09:00; Status Future Hold Diphenhydramine HCl (Benadryl) 25 mg UNSCH PRN PO for hives/itching/anaphylaxis ; Start 07/22/17 at 14:45 Enalapril Maleate (Vasotec) 5 mg DAILY PO ; Start 07/22/17 at 09:00; Status Future Hold Gelatin (Gelfoam 12 Mm/7 Mm Top) 1 foam UNSCH PRN TOP SEE LABEL COMMENTS Last administered on 07/23/17at 12:00; Start 07/22/17 at 14:45 Gentamicin Sulfate (Gentamicin Inj) 20 mg UNSCH PRN OTHER WITH DIALYSIS; Start 07/22/17 at 14:45 Heparin Sodium (Porcine) (Heparin Inj) UNSCH PRN .XX WITH DIALYSIS; Start at 14:45 Hydromorphone HCl (Dilaudid Pf Inj) 0.5 mg NOW ONCE IV ; Start 07/22/17 at 21: 15; Stop 07/22/17 at 21:16; Status DC Lactulose (Lactulose Liq) 30 ml DAILY PRN PO SEVERE CONSITIPATION; Start at 20:00 Lidocaine/ Epinephrine (Xylocaine-Epi 1%-1:100,000 Inj) 50 ml ONCE ONCE INFIL ; Start 07/21/17 at 15:30; Stop 07/21/17 at 15:33; Status DC Magnesium Hydroxide (Milk Of Magnesia Liq) 30 ml Q12H PRN PO Mild constipation ; Start 07/21/17 at 20:00 Mannitol (Mannitol Inj) 12.5 gm UNSCH PRN IV WITH DIALYSIS; Start 07/22/17 at 14:45 Metoprolol Tartrate (Lopressor Inj) 2 mg NOW ONCE IV PUSH ; Start 07/22/17 at 21:15; Stop 07/22/17 at 21:16; Status DC Metoprolol Tartrate (Lopressor) 25 mg Q12HR PO ; Start 07/22/17 at 09:00; Status Future Hold Midodrine (Proamatine) 5 mg TID@07,12,17 PO Last administered on 07/25/17at 05: 52; Start 07/22/17 at 17:00 Miscellaneous Information ([facility] [place] [facility]) ALL NURSING DEPARTME... UNSCH PRN .XX SEE LABEL COMMENTS; Start 07/22/17 at 21:15; Stop 07/23/17 at 21: 14; Status DC Morphine Sulfate (Morphine Inj) 2 mg Q4H PRN IV PUSH PAIN 5-10 Last administered on 07/23/17at 01:32; Start 07/22/17 at 08:15 Naloxone HCl (Narcan Inj) 0.4 mg UNSCH PRN IV PUSH SEE LABEL COMMENTS; Start at 20:00 Nitroglycerin (Nitrostat Sl) 0.4 mg UNSCH PRN SL CHEST PAIN; Start 07/22/17 at 14:45 Non-Formulary Medication 1 drop BID LEFT EYE ; Start 07/22/17 at 09:00; Stop at 09:00; Status DC Ondansetron HCl (Zofran Odt) 4 mg UNSCH PRN PO WITH DIALYSIS; Start 07/22/17 at 15:15 Ondansetron HCl (Zofran Inj) 4 mg UNSCH PRN IV PUSH WITH DIALYSIS; Start at 14:45; Stop 07/22/17 at 15:10; Status DC Pantoprazole Sodium (Protonix) 20 mg DAILY PO Last administered on 07/25/17at 09 :43; Start 07/22/17 at 09:00 Patient Medication Teaching (Coumadin Booklet) 1 ONCE ONCE .XX ; Start at 16:00; Stop 07/24/17 at 16:01; Status DC Pharmacy Profile Note 0 ml @ 0 mls/hr UNSCH OTHER ; Start 07/24/17 at 12:00 Potassium Chloride (KCl) 40 meq ONCE ONCE PO ; Start 07/21/17 at 19:00; Stop at 19:46; Status DC Ropinirole HCl (Requip) 2 mg TID PO Last administered on 07/25/17at 09:43; Start 07/22/17 at 09:00 Sennosides (Senokot) 17.2 mg Q12H PRN PO Moderate constipation; Start 07/21/17 at 20:00 Sodium Chloride (NS Flush) 2 ml BID IV FLUSH Last administered on 07/25/17at 09: 45; Start 07/22/17 at 21:00 Temazepam (Restoril) 15 mg ONCE ONCE PO Last administered on 07/22/17at 03:52; Start 07/22/17 at 03:00; Stop 07/22/17 at 03:01; Status DC Timolol Maleate (Timoptic 0.5% Opt Soln) 1 drop Q12HR LEFT EYE Last administered on 07/25/17at 09:43; Start 07/22/17 at 09:00 Vancomycin HCl 1000 mg/Sodium Chloride 250 ml @ 250 mls/hr ONCE ONCE IV Last administered on 07/21/17at 16:36; Start 07/21/17 at 16:15; Stop 07/21/17 at 17:14 ; Status DC Vancomycin HCl 1500 mg/Sodium Chloride 515 ml @ 257.5 mls/ hr ONCE ONCE IV Last administered on 07/23/17at 21:03; Start 07/23/17 at 20:00; Stop 07/23/17 at 21:59; Status DC Warfarin Sodium (Coumadin) 5 mg DAILY@1600 PO Last administered on 07/24/17at 17 :19; Start 07/24/17 at 16:00 A/P Problem List: (1) Olecranon bursitis, left elbow ICD Code: M70.22 - Olecranon bursitis, left elbow (2) ESRD (end stage renal disease) on dialysis ICD Code: N18.6 - End stage renal failure on dialysis; Z99.2 - Dependence on renal dialysis Status: Acute (3) Atrial fibrillation Status: Chronic Assessment and Plan A/P Left elbow olecranon bursitis - s/p Irrigation and debridement, excision of olecranon bursa left elbow - continue on Ancef 2g Q8hrs. -received a dose of Vancomycin on 07/21. -follow the cultures. staph bacteremia; on antibiotics as noted above- ID consulted.echo pending. ESRD -on HD- per nephrology. Atrial fibrillation - continue Amiodarone 200mg BID. 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 - hold Cardizem and Metoprolol due to hypotension. - resumed Coumadin. DVT prophylaxis; on Coumadin. Discharge Planning when cleared by ID and orth-pending echo and cultures. Problem Qualifiers (1) Atrial fibrillation: Qualified Codes: I48.2 - Chronic atrial fibrillation Ruby Nice MD July 25, 2017 11:42
[2017-07-25] MEDS ORDERED: ACETAMINOPHEN/HYDROcodone 325 MG/5 MG TAB PO PRN (11:45)
--- NOTE | 2017-07-25 12:18 | PD.CARD.PN ---
Subjective Subjective Remarks Denies CP, dyspnea, palpitations, dizziness. Objective Medications Item Value Date Time Warfarin Sodium 5 mg 07/24/17 1600 (Coumadin) DAILY@1600/PO Amiodarone HCl 200 mg 07/22/17 0900 (Cordarone) BID/PO 07/23/172102 Warfarin Sodium 5 mg 07/24/17 1600 (Coumadin) DAILY@1600/PO 07/24/17 171 Amiodarone HCl 200 mg 07/22/17 0900 (Cordarone) BID/PO 07/25/17 0943 Current Medications Medications (Trade) Dose Ordered Sig/Sara Route Start Time Stop Time Status Last Admin (Tylenol) 650 mg Q4H PRN PO 07/21/17 20:00 (Zofran Odt) 4 mg Q6H PRN PO 07/21/17 20:00 (Narcan Inj) 0.4 mg UNSCH PRN IV PUSH 07/21/17 20:00 (Milk Of Magnesia Liq) 30 ml Q12H PRN PO 07/21/17 20:00 (Senokot) 17.2 mg Q12H PRN PO 07/21/17 20:00 (Dulcolax Supp) 10 mg DAILY PRN RECTAL 07/21/17 20:00 (Lactulose Liq) 30 ml DAILY PRN PO 07/21/17 20:00 (Cordarone) 200 mg BID PO 07/22/17 09:00 07/25/17 09:43 (Phoslo) 667 mg TID PO 07/22/17 09:00 07/25/17 09:43 (Vasotec) 5 mg DAILY PO 07/22/17 09:00 Future Hold (Requip) 2 mg TID PO 07/22/17 09:00 07/25/17 09:43 (Protonix) 20 mg DAILY PO 07/22/17 09:00 07/25/17 09:43 (Lopressor) 25 mg Q12HR PO 07/22/17 09:00 Future Hold (Alphagan 0.2% Opth Soln) 1 drop Q12HR LEFT EYE 07/22/17 09:00 07/25/17 09:43 (Timoptic 0.5% Opth Soln) 1 drop Q12HR LEFT EYE 07/22/17 09:00 5/27/18 09:43 (Cardizem Cd) 180 mg DAILY PO 07/22/17 09:00 Future Hold (Morphine Inj) 2 mg Q4H PRN IV PUSH 07/22/17 08:15 07/23/17 01:32 (Proamatine) 5 mg TID@07,12,17 PO 07/22/17 17:00 07/25/17 05:52 Sodium Chloride 1,000 ml @ 0 mls/hr Q0M PRN OTHER 07/22/17 14:41 07/23/17 12:00 (Heparin Inj) 8,000 units UNSCH PRN IV FLUSH 07/22/17 14:45 Sodium Chloride 1,000 ml @ 200 mls/hr Q5H PRN IV 07/22/17 14:41 Sodium Chloride 1,000 ml @ 0 mls/hr Q0M PRN OTHER 07/22/17 14:41 (Mannitol Inj) 12.5 gm UNSCH PRN IV 07/22/17 14:45 Albumin Human 100 ml @ 60 mls/hr UNSCH PRN IV 07/22/17 14:45 07/23/17 09:10 (NS Flush) 5 ml UNSCH PRN IV FLUSH 07/22/17 14:45 (Heparin Inj) UNSCH PRN .XX 07/22/17 14:45 (Gentamicin Inj) 20 mg UNSCH PRN OTHER 07/22/17 14:45 (Tylenol) 650 mg UNSCH PRN PO 07/22/17 14:45 (Benadryl) 25 mg UNSCH PRN PO 07/22/17 14:45 (Nitrostat Sl) 0.4 mg UNSCH PRN SL 07/22/17 14:45 (Catapres) 0.1 mg UNSCH PRN PO 07/22/17 14:45 (Gelfoam 12 Mm/7 Mm Top) 1 foam UNSCH PRN TOP 07/22/17 14:45 07/23/17 12:00 (Zofran Odt) 4 mg UNSCH PRN PO 07/22/17 15:15 (NS Flush) 2 ml UNSCH PRN IV FLUSH 07/22/17 19:30 (NS Flush) 2 ml BID IV FLUSH 07/22/17 21:00 07/25/17 09:45 Cefazolin Sodium 1000 mg/Sodium Chloride 100 ml @ 200 mls/hr Q12H IV 07/23/17 13:00 07/25/17 01:48 (Coumadin) 5 mg DAILY@1600 PO 07/24/17 16:00 07/24/17 17:19 Pharmacy Profile Note 0 ml @ 0 mls/hr UNSCH OTHER 07/24/17 12:00 (Thayer 5-325 Mg) 1 tab Q4H PRN PO 07/25/17 11:45 (Thayer 5-325 Mg) 2 tab Q4H PRN PO 07/25/17 11:45 Vital Signs / I&O Vital Signs Date Time Temp Pulse Resp B/P (MAP) Pulse Ox O2 Delivery O2 Flow Rate FiO2 07/25/17 08:10 97.8 70 18 108/53 (71) 96 07/25/17 08:00 Nasal Cannula 2.00 07/25/17 08:00 75 07/25/17 04:00 Nasal Cannula 2.00 07/25/17 04:00 97.8 68 19 97/52 (67) 95 07/25/17 04:00 74 07/25/17 00:00 Nasal Cannula 2.00 07/25/17 00:00 97.6 100 17 102/58 (73) 94 07/25/17 00:00 70 07/24/17 20:00 97.8 79 18 105/52 (69) 95 07/24/17 20:00 86 07/24/17 19:30 Nasal Cannula 2.00 07/24/17 17:36 96 Nasal Cannula 3.00 07/24/17 16:00 102/54 (70) 07/24/17 16:00 85 I/O 07/24/17 07/24/17 07/24/17 07/25/17 07/25/17 07/25/17 07:00 15:00 23:00 07:00 15:00 23:00 Intake Total 120 ml 720 ml Output Total 0 ml Balance 120 ml 720 ml Intake Oral 120 ml 720 ml Output Urine Total 0 ml # Voids 3 0 # Bowel Movements 0 1 1 0 Physical Exam GENERAL: Well developed, thin. No acute distress. HEENT: Jugular venous pressure is normal. CHEST: Lungs clear to auscultation anteriorly. CARDIAC: Irregular rate and rhythm without S3, S4. II/ OLIVIA base with moderately diminished S2. ABDOMEN: Soft, nontender, no hepatosplenomegaly. Bowel sounds present. EXTREMITIES: No clubbing, cyanosis, or edema. Assessment and Plan Problem List: (1) Atrial fibrillation Status: Chronic Plan: HR's remain controlled. BP's still too low to resume Cardizem or metoprolol. INR therapeutic. Continues on oral Amiodarone. Recommend no changes. Will f/u PRN. (2) Aortic stenosis ICD Codes: I35.0 - Aortic valve stenosis Status: Chronic Plan: by exam appears moderate. Patient without symptoms directly attributable to the . Recommend dedicated intermodal truck driver f/u with Dr. Calhoun. Code Status full code Discussed Condition With patient Problem Qualifiers (1) Atrial fibrillation: Qualified Codes: I48.2 - Chronic atrial fibrillation (2) Aortic stenosis: Qualified Codes: I35.0 - Nonrheumatic aortic (valve) stenosis Jacek Diaz MD July 25, 2017 12:18
--- NOTE | 2017-07-25 12:28 | HHI.IDPN ---
Subjective Subjective Remarks ID COVERAGE Mr. Valle is an 81-year-old male with past medical history significant for A. fib, history of cardiac ablation, history of pacemaker, end-stage renal disease on hemodialysis Wednesday. Of note patient appears to have had aspiration of the left elbow on July 09 with growth of staph lugdenensis. Patient reports that he has been following up with Dr. Gonzalze his orthopedic surgeon and was started on amoxicillin. Due to persistent swelling and pain in his left elbow patient presented to the emergency department on July 21, 2017. ED contacted Dr. Gonzalez his orthopedic surgeon and patient underwent incision and drainage of the abscess. Intra-Op cultures are pending. Patient also had blood cultures drawn on admission which are now positive for coag negative staph. At the time of my evaluation patient is admitted to the floor. Was alert opens his eyes and is able to provide me some brief history. Although does not appear to be very reliable. Per review of records it appears that he has a history of signing off AGAINST MEDICAL ADVICE in the past. Unsure if he was compliant with his medications as his medication administration record for home meds is not show amoxicillin as one of the meds for him. Infectious disease is consulted for evaluation and management of left elbow septic arthritis and staph coag negative bacteremia. Notes reviewed Afebrile States his elbow feels fine One BC with 2 diff Coag Neg Staph The other BC with Staph urealyticus Fluid C/S Coag Neg Staph Second set no ID yet Repeat blood culture negative Antibiotics Ancef Current Medications Medications (Trade) Dose Ordered Sig/Sara Route Start Time Stop Time Status Last Admin (Tylenol) 650 mg Q4H PRN PO 07/21/17 20:00 (Zofran Odt) 4 mg Q6H PRN PO 07/21/17 20:00 (Narcan Inj) 0.4 mg UNSCH PRN IV PUSH 07/21/17 20:00 (Milk Of Magnesia Liq) 30 ml Q12H PRN PO 07/21/17 20:00 (Senokot) 17.2 mg Q12H PRN PO 07/21/17 20:00 (Dulcolax Supp) 10 mg DAILY PRN RECTAL 07/21/17 20:00 (Lactulose Liq) 30 ml DAILY PRN PO 07/21/17 20:00 (Cordarone) 200 mg BID PO 07/22/17 09:00 07/25/17 09:43 (Phoslo) 667 mg TID PO 07/22/17 09:00 07/25/17 12:21 (Vasotec) 5 mg DAILY PO 07/22/17 09:00 Future Hold (Requip) 2 mg TID PO 07/22/17 09:00 07/25/17 12:21 (Protonix) 20 mg DAILY PO 07/22/17 09:00 07/25/17 09:43 (Lopressor) 25 mg Q12HR PO 07/22/17 09:00 Future Hold (Alphagan 0.2% Opth Soln) 1 drop Q12HR LEFT EYE 07/22/17 09:00 07/25/17 09:43 (Timoptic 0.5% Opth Soln) 1 drop Q12HR LEFT EYE 07/22/17 09:00 07/25/17 09:43 (Cardizem Cd) 180 mg DAILY PO 07/22/17 09:00 Future Hold (Morphine Inj) 2 mg Q4H PRN IV PUSH 07/22/17 08:15 07/23/17 01:32 (Proamatine) 5 mg TID@07,12,17 PO 07/22/17 17:00 07/25/17 12:21 Sodium Chloride 1,000 ml @ 0 mls/hr Q0M PRN OTHER 07/22/17 14:41 07/23/17 12:00 (Heparin Inj) 8,000 units UNSCH PRN IV FLUSH 07/22/17 14:45 Sodium Chloride 1,000 ml @ 200 mls/hr Q5H PRN IV 07/22/17 14:41 Sodium Chloride 1,000 ml @ 0 mls/hr Q0M PRN OTHER 07/22/17 14:41 (Mannitol Inj) 12.5 gm UNSCH PRN IV 07/22/17 14:45 Albumin Human 100 ml @ 60 mls/hr UNSCH PRN IV 07/22/17 14:45 07/23/17 09:10 (NS Flush) 5 ml UNSCH PRN IV FLUSH 07/22/17 14:45 (Heparin Inj) UNSCH PRN .XX 07/22/17 14:45 (Gentamicin Inj) 20 mg UNSCH PRN OTHER 07/22/17 14:45 (Tylenol) 650 mg UNSCH PRN PO 07/22/17 14:45 (Benadryl) 25 mg UNSCH PRN PO 07/22/17 14:45 (Nitrostat Sl) 0.4 mg UNSCH PRN SL 07/22/17 14:45 (Catapres) 0.1 mg UNSCH PRN PO 07/22/17 14:45 (Gelfoam 12 Mm/7 Mm Top) 1 foam UNSCH PRN TOP 07/22/17 14:45 07/23/17 12:00 (Zofran Odt) 4 mg UNSCH PRN PO 07/22/17 15:15 (NS Flush) 2 ml UNSCH PRN IV FLUSH 07/22/17 19:30 (NS Flush) 2 ml BID IV FLUSH 07/22/17 21:00 07/25/17 09:45 Cefazolin Sodium 1000 mg/Sodium Chloride 100 ml @ 200 mls/hr Q12H IV 07/23/17 13:00 07/25/17 12:21 (Coumadin) 5 mg DAILY@1600 PO 07/24/17 16:00 07/24/17 17:19 Pharmacy Profile Note 0 ml @ 0 mls/hr UNSCH OTHER 07/24/17 12:00 ([place] 5-325 Mg) 1 tab Q4H PRN PO 07/25/17 11:45 ([place] 5-325 Mg) 2 tab Q4H PRN PO 07/25/17 11:45 Lines PIV no evidence of infection Past Medical History History of bursitis History of aspiration on July 09, 2017 of the left elbow: Cultures positive for staph ligamentous patient was being treated with reportedly amoxicillin per patient's report Past Surgical History Aspiration of the left elbow Allergies: Coded Allergies: clindamycin (Verified Allergy, Severe, Rash, 07/21/17) ciprofloxacin (Verified Allergy, Unknown, 07/21/17) Objective . Vital Signs Date Time Temp Pulse Resp B/P (MAP) Pulse Ox O2 Delivery O2 Flow Rate FiO2 07/25/17 08:10 97.8 70 18 108/53 (71) 96 07/25/17 08:00 Nasal Cannula 2.00 07/25/17 08:00 75 07/25/17 04:00 Nasal Cannula 2.00 07/25/17 04:00 97.8 68 19 97/52 (67) 95 07/25/17 04:00 74 07/25/17 00:00 Nasal Cannula 2.00 07/25/17 00:00 97.6 100 17 102/58 (73) 94 07/25/17 00:00 70 07/24/17 20:00 97.8 79 18 105/52 (69) 95 07/24/17 20:00 86 07/24/17 19:30 Nasal Cannula 2.00 07/24/17 17:36 96 Nasal Cannula 3.00 07/24/17 16:00 102/54 (70) 07/24/17 16:00 85 . Microbiology Date/Time Source Procedure Growth Status 07/23/17 18:40 Blood Peripheral Aerobic Blood Culture - Preliminary NO GROWTH IN 2 DAYS Resulted 07/23/17 18:40 Blood Peripheral Anaerobic Blood Culture - Preliminary NO GROWTH IN 2 DAYS Resulted 07/23/17 18:30 Blood Peripheral Aerobic Blood Culture - Preliminary NO GROWTH IN 2 DAYS Resulted 07/23/17 18:30 Blood Peripheral Anaerobic Blood Culture - Preliminary NO GROWTH IN 2 DAYS Resulted 07/22/17 18:58 Wound Elbow Fungal Smear - Final NO FUNGAL ELEMENTS SEEN. Resulted 07/22/17 18:58 Wound Elbow Fungal Culture Pending Resulted 07/22/17 18:58 Wound Elbow Acid Fast Stain Pending Worksheet 07/22/17 18:58 Wound Elbow Mycobacterial Culture Pending Worksheet 07/22/17 18:58 Wound Elbow Gram Stain - Final Resulted 07/22/17 18:58 Wound Culture - Preliminary Staph Sp Coagulase Negative Resulted Imaging Last Impressions Foot X-Ray 07/24/17 0000 Signed Impressions: CONCLUSION: Osteopenia of the bony structures with some primary degenerative changes at the first metatarsal-phalangeal joint. Ankle X-Ray 07/24/17 0000 Signed Impressions: CONCLUSION: Osteopenia of the bony structures with some mild degenerative changes at the mo rtise joint. Elbow X-Ray 07/21/17 0000 Signed Impressions: CONCLUSION: 1. New nonspecific soft tissue swelling at the elbow. 2. 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 No significant change compared to the prior study from 2017. Physical Exam GENERAL: awake and alert, in no apparent distress. SKIN: No rashes, ecchymoses or lesions. Cool and dry. HEAD: Atraumatic. Normocephalic. No temporal or scalp tenderness. EYES: Pupils equal round and reactive. Extraocular motions intact. No scleral icterus. No injection or drainage. ENT: Nose without bleeding, purulent drainage or septal hematoma. Moist oral mucosa. NECK: Trachea midline.Supple, nontender, no meningeal signs. CARDIOVASCULAR: Murmur appreciated. RESPIRATORY: Clear to auscultation. Breath sounds equal bilaterally. No wheezes , rales, or rhonchi. GASTROINTESTINAL: Abdomen soft, non-tender, nondistended. MUSCULOSKELETAL: Left elbow with wound VAC. NEUROLOGICAL: Awake and alert. Nonfocal exam. Psych cooperative IV line sites with no evidence of infection. Assessment & Plan Remarks Left elbow septic arthritis status post irrigation and drainage. Left elbow aspiration with evidence of staph lugdunensis Staph coag negative bacteremia. End-stage renal disease on hemodialysis using right upper extremity AV fistula( patient undergoes dialysis on Wednesday's) Hypotension ? cardiac meds induced. Less likely sepsis related. Recommendations Follow blood cultures Continue Ancef for now pending cultures. Await 2 D ECHO to r/o dissemination Follow cultures Monitor progress Discussed with Deisy Nevarez MD July 25, 2017 12:28
[2017-07-25] MEDS: WARFARIN SOD 5 MG TAB PO SCH (16:58)
--- NOTE | 2017-07-25 17:24 | HHI.NPPN ---
Subjective History of Present Illness The patient is an 81 yo [place] male who is known to our services for ESRD on HD. He presented to the ED on 523 with complaints of L elbow pain. He has had known bursitis and has been having aspirated periodically. The bursa had become more painful and red so the patient decided to come to the ED for eval. patient now status post I&D of same. Pus was found. Interval History Patient resting comfortably in bed. His only complaint that he has is that he has no appetite. Also indicating that he is upset that he cannot use a commode as per hospital staff. Review of Systems General Constitutional: Fatigue Objective Data Data Vital Signs Date Time Temp Pulse Resp B/P (MAP) Pulse Ox O2 Delivery O2 Flow Rate FiO2 07/25/17 17:16 97 Nasal Cannula 2.00 07/25/17 12:20 97.6 70 18 109/53 (71) 99 07/25/17 12:00 70 07/25/17 08:10 97.8 70 18 108/53 (71) 96 07/25/17 08:00 Nasal Cannula 2.00 07/25/17 08:00 75 07/25/17 04:00 Nasal Cannula 2.00 07/25/17 04:00 97.8 68 19 97/52 (67) 95 07/25/17 04:00 74 07/25/17 00:00 Nasal Cannula 2.00 07/25/17 00:00 97.6 100 17 102/58 (73) 94 07/25/17 00:00 70 07/24/17 20:00 97.8 79 18 105/52 (69) 95 07/24/17 20:00 86 07/24/17 19:30 Nasal Cannula 2.00 07/24/17 17:36 96 Nasal Cannula 3.00 -: 07/23/17 0738 07/23/17 0738 Physical Exam General Appearance: No Acute Distress, Comfortable Eyes Eye Exam: Sclera White Pulmonary Resp Exam: Clear Bilaterally, Breath Sounds Equal Cardiology CV Exam: Irregular Gastrointestinal/Abdomen GI Exam: Soft, Non-Tender Integumentary Skin Exam: Clear, Warm Neurologic Neuro Exam: Alert, Awake, Speech Clear Assessment/Plan Discussed Condition With: Patient Problem List: (1) ESRD (end stage renal disease) on dialysis ICD Codes: N18.6 - End stage renal failure on dialysis; Z99.2 - Dependence on renal dialysis Status: Acute Plan: Continue on HD MWF as before He does have a history of chronic hypotension. Continue midodrine. Continue on calcium acetate Medications should be adjusted for the patient's ESRD. Avoid gadolinium. (2) Hypotension ICD Codes: I95.9 - Hypotension, unspecified Plan: Improved with midodrine. Continue same. (3) Bacteremia ICD Codes: R78.81 - Bacteremia Status: Acute Plan: Coag negative staph. Infectious disease consultation appreciated. (4) Olecranon bursitis, left elbow ICD Codes: M70.22 - Olecranon bursitis, left elbow Plan: Management as per ortho (5) Atrial fibrillation with RVR ICD Codes: I48.91 - Unspecified atrial fibrillation Status: Acute Plan: Cardiology consult appreciated. To continue on amiodarone for the present. Blood pressure improved and heart rate is controlled on amiodarone. (6) Cognitive change ICD Codes: R41.89 - Other symptoms and signs involving cognitive functions and awareness Status: Chronic Plan: The patient has been showing some cognitive changes over the last few months. May be related to dementia. I will defer to primary care physician in regard to possibly have a neurology consultation. Alice Murcia MD July 25, 2017 17:24
[2017-07-26] VITALS (10 sets, daily range): BP systolic 95–115; BP diastolic 50–59; PULSE 66–88; RESP 17–20; TEMP 97.3–98.5; O2SAT 94–100
[2017-07-26] MEDS: ceFAZolin 1,000 MG/NS 100 ML IV SCH ×2 (01:10)
[2017-07-26 05:33] LABS: INTERNATIONAL NORMALIZED RATIO 2.3 RATIO; PROTHROMBIN TIME - PATIENT 23.6 SEC (9.8-11.6)
[2017-07-26] MEDS: MIDODRINE 5 MG TAB PO SCH ×3 (06:10→17:16)
[2017-07-26] MEDS: BRIMONIDINE TARTRATE 0.2% OPHT SOLN 5 ML BTL LEFT EYE SCH ×2 (08:41→21:38)
[2017-07-26] MEDS: SODIUM CHLORIDE 0.9% FLUSH 10 ML FLUSH IV FLUSH SCH ×2 (08:41→21:38)
[2017-07-26] MEDS: CALCIUM ACETATE 667 MG CAP PO SCH ×3 (08:42→17:16)
[2017-07-26] MEDS: AMIODARONE 200 MG TAB PO SCH ×2 (08:42→21:36)
[2017-07-26] MEDS: TIMOLOL MALEATE 0.5% OPHT SOLN 5 ML BTL LEFT EYE SCH ×2 (08:42→21:38)
[2017-07-26] MEDS: PANTOPRAZOLE SOD 20 MG DELAYED RELEASE TAB PO SCH (08:43)
[2017-07-26] MEDS: ACETAMINOPHEN/HYDROcodone 325 MG/5 MG TAB PO PRN ×2 (09:16→21:37)
--- NOTE | 2017-07-26 10:52 | HHI.PR ---
Subjective Remarks in no acute distress. having his HD today. pain is controlled. no fever. no new complaints. Objective Vitals Vital Signs Date Time Temp Pulse Resp B/P (MAP) Pulse Ox O2 Delivery O2 Flow Rate FiO2 07/26/17 08:20 97.3 74 20 107/55 (72) 97 07/26/17 08:06 100 07/26/17 07:00 Nasal Cannula 2.00 07/26/17 04:00 73 07/26/17 04:00 98.0 70 20 95/50 (65) 100 07/26/17 00:00 98.5 72 20 97/50 (66) 95 07/26/17 00:00 78 07/25/17 20:16 Nasal Cannula 2.00 07/25/17 20:00 69 07/25/17 20:00 Nasal Cannula 2.00 07/25/17 20:00 96.1 70 20 98/53 (68) 97 07/25/17 17:16 97 Nasal Cannula 2.00 07/25/17 16:00 70 07/25/17 16:00 97.6 70 20 101/56 (71) 98 07/25/17 12:20 97.6 70 18 109/53 (71) 99 07/25/17 12:00 70 I/O 07/25/17 07/25/17 07/25/17 07/26/17 07/26/17 07/26/17 06:59 14:59 22:59 06:59 14:59 22:59 Intake Total 480 ml 460 ml Output Total 0 ml Balance 480 ml 460 ml Intake Oral 480 ml 360 ml IV Total 100 ml Output Urine Total 0 ml # Voids 0 # Bowel Movements 0 1 Result Diagram: 07/23/17 0738 07/23/17 0738 Objective Remarks GENERAL: elderly male, in no apparent distress. CARDIOVASCULAR: Regular rate and regular rhythm without murmurs, gallops, or rubs. RESPIRATORY: Clear to auscultation. Breath sounds equal bilaterally. No wheezes , rales, or rhonchi. GASTROINTESTINAL: Abdomen soft, non-tender, nondistended. Normal, active bowel sounds MUSCULOSKELETAL:erythema/ swelling of the left olecranon NEURO: awake and alert Procedures Irrigation and debridement, excision of olecranon bursa left elbow Medications and IVs Inpatient Medications Acetaminophen (Tylenol) 650 mg UNSCH PRN PO for headach, pain, temp > 101F; Start 07/22/17 at 14:45 Acetaminophen/ Hydrocodone Bitart ([place] 5-325 Mg) 2 tab Q4H PRN PO PAIN 8-10 Last administered on 07/26/17at 09:16; Start 07/25/17 at 11:45 Albumin Human 100 ml @ 60 mls/hr UNSCH PRN IV WITH DIALYSIS Last administered on 07/23/17at 09:10; Start 07/22/17 at 14:45 Amiodarone HCl (Cordarone) 200 mg BID PO Last administered on 07/26/17at 08:42; Start 07/22/17 at 09:00 Bisacodyl (Dulcolax Supp) 10 mg DAILY PRN RECTAL SEVERE CONSITIPATION; Start at 20:00 Brimonidine Tartrate ([place] 0.2% Opt Soln) 1 drop Q12HR LEFT EYE Last administered on 07/26/17at 08:41; Start 07/22/17 at 09:00 Calcium Acetate (Phoslo) 667 mg TID PO Last administered on 07/26/17at 08:42; Start 07/22/17 at 09:00 Calcium Gluconate 1 gm/Sodium Chloride 100 ml @ 100 mls/hr ONCE ONCE IV ; Start 07/21/17 at 19:00; Stop 07/21/17 at 19:46; Status DC Cefazolin Sodium 1000 mg/Sodium Chloride 100 ml @ 200 mls/hr Q12H IV Last administered on 07/26/17at 01:10; Start 07/23/17 at 13:00 Cefazolin Sodium/ Dextrose 50 ml @ 100 mls/hr Q8H IV Last administered on 07/23at 01:04; Start 07/22/17 at 01:00; Stop 07/23/17 at 08:33; Status DC Clonidine (Catapres) 0.1 mg UNSCH PRN PO for BP > 180/100 X 2 readings; Start 07/22/17 at 14:45 Dextrose (D50w (Syr) Inj) 25 ml ONCE ONCE IV PUSH ; Start 07/21/17 at 19:00; Stop 07/21/17 at 19:46; Status DC Digoxin (Lanoxin Inj) 0.5 mg ONCE ONCE IV PUSH Last administered on 07/23/17at 18:03; Start 07/23/17 at 16:30; Stop 07/23/17 at 16:31; Status DC Diltiazem HCl (Cardizem Cd) 180 mg DAILY PO ; Start 07/22/17 at 09:00; Status Future Hold Diphenhydramine HCl (Benadryl) 25 mg UNSCH PRN PO for hives/itching/anaphylaxis ; Start 07/22/17 at 14:45 Enalapril Maleate (Vasotec) 5 mg DAILY PO ; Start 07/22/17 at 09:00; Status Future Hold Gelatin (Gelfoam 12 Mm/7 Mm Top) 1 foam UNSCH PRN TOP SEE LABEL COMMENTS Last administered on 07/23/17at 12:00; Start 07/22/17 at 14:45 Gentamicin Sulfate (Gentamicin Inj) 20 mg UNSCH PRN OTHER WITH DIALYSIS; Start 07/22/17 at 14:45 Heparin Sodium (Porcine) (Heparin Inj) UNSCH PRN .XX WITH DIALYSIS; Start at 14:45 Hydromorphone HCl (Dilaudid Pf Inj) 0.5 mg NOW ONCE IV ; Start 07/22/17 at 21: 15; Stop 07/22/17 at 21:16; Status DC Lactulose (Lactulose Liq) 30 ml DAILY PRN PO SEVERE CONSITIPATION; Start at 20:00 Lidocaine/ Epinephrine (Xylocaine-Epi 1%-1:100,000 Inj) 50 ml ONCE ONCE INFIL ; Start 07/21/17 at 15:30; Stop 07/21/17 at 15:33; Status DC Magnesium Hydroxide (Milk Of Magnesia Liq) 30 ml Q12H PRN PO Mild constipation ; Start 07/21/17 at 20:00 Mannitol (Mannitol Inj) 12.5 gm UNSCH PRN IV WITH DIALYSIS; Start 07/22/17 at 14:45 Metoprolol Tartrate (Lopressor Inj) 2 mg NOW ONCE IV PUSH ; Start 07/22/17 at 21:15; Stop 07/22/17 at 21:16; Status DC Metoprolol Tartrate (Lopressor) 25 mg Q12HR PO ; Start 07/22/17 at 09:00; Status Future Hold Midodrine (Proamatine) 5 mg TID@07,12,17 PO Last administered on 07/26/17at 06: 10; Start 07/22/17 at 17:00 Miscellaneous Information ([facility] Nursing Information) ALL NURSING DEPARTME... UNSCH PRN .XX SEE LABEL COMMENTS; Start 07/22/17 at 21:15; Stop 07/23/17 at 21: 14; Status DC Morphine Sulfate (Morphine Inj) 2 mg Q4H PRN IV PUSH BREAKTHROUGH PAIN Last administered on 07/23/17at 01:32; Start 07/22/17 at 08:15 Naloxone HCl (Narcan Inj) 0.4 mg UNSCH PRN IV PUSH SEE LABEL COMMENTS; Start at 20:00 Nitroglycerin (Nitrostat Sl) 0.4 mg UNSCH PRN SL CHEST PAIN; Start 07/22/17 at 14:45 Non-Formulary Medication 1 drop BID LEFT EYE ; Start 07/22/17 at 09:00; Stop at 09:00; Status DC Ondansetron HCl (Zofran Odt) 4 mg UNSCH PRN PO WITH DIALYSIS; Start 07/22/17 at 15:15 Ondansetron HCl (Zofran Inj) 4 mg UNSCH PRN IV PUSH WITH DIALYSIS; Start at 14:45; Stop 07/22/17 at 15:10; Status DC Pantoprazole Sodium (Protonix) 20 mg DAILY PO Last administered on 07/26/17at 08 :43; Start 07/22/17 at 09:00 Patient Medication Teaching (Coumadin Booklet) 1 ONCE ONCE .XX ; Start at 16:00; Stop 07/24/17 at 16:01; Status DC Pharmacy Profile Note 0 ml @ 0 mls/hr UNSCH OTHER ; Start 07/24/17 at 12:00 Potassium Chloride (KCl) 40 meq ONCE ONCE PO ; Start 07/21/17 at 19:00; Stop at 19:46; Status DC Ropinirole HCl (Requip) 2 mg TID PO Last administered on 07/26/17at 08:42; Start 07/22/17 at 09:00 Sennosides (Senokot) 17.2 mg Q12H PRN PO Moderate constipation; Start 07/21/17 at 20:00 Sodium Chloride (NS Flush) 2 ml BID IV FLUSH Last administered on 07/26/17at 08: 41; Start 07/22/17 at 21:00 Temazepam (Restoril) 15 mg ONCE ONCE PO Last administered on 07/22/17at 03:52; Start 07/22/17 at 03:00; Stop 07/22/17 at 03:01; Status DC Timolol Maleate ([place] 0.5% Opt Soln) 1 drop Q12HR LEFT EYE Last administered on 07/26/17at 08:42; Start 07/22/17 at 09:00 Vancomycin HCl 1000 mg/Sodium Chloride 250 ml @ 250 mls/hr ONCE ONCE IV Last administered on 07/21/17at 16:36; Start 07/21/17 at 16:15; Stop 07/21/17 at 17:14 ; Status DC Vancomycin HCl 1500 mg/Sodium Chloride 515 ml @ 257.5 mls/ hr ONCE ONCE IV Last administered on 07/23/17at 21:03; Start 07/23/17 at 20:00; Stop 07/23/17 at 21:59; Status DC Warfarin Sodium (Coumadin) 3 mg DAILY@1600 PO ; Start 07/26/17 at 16:00 A/P Problem List: (1) Olecranon bursitis, left elbow ICD Code: M70.22 - Olecranon bursitis, left elbow (2) ESRD (end stage renal disease) on dialysis ICD Code: N18.6 - End stage renal failure on dialysis; Z99.2 - Dependence on renal dialysis Status: Acute (3) Atrial fibrillation Status: Chronic Assessment and Plan A/P Left elbow olecranon bursitis - s/p Irrigation and debridement, excision of olecranon bursa left elbow -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 -received a dose of Vancomycin on 07/21. -follow the cultures. staph bacteremia; on antibiotics as noted above- ID consulted.echo pending. ESRD -on HD- per nephrology. Atrial fibrillation - continue Amiodarone 200mg BID. - hold Cardizem and Metoprolol due to low-normal BP's. - resumed Coumadin. DVT prophylaxis; on Coumadin. Discharge Planning when cleared by ID -pending echo and cultures. Problem Qualifiers (1) Atrial fibrillation: Qualified Codes: I48.2 - Chronic atrial fibrillation Ruby Nice MD July 26, 2017 10:52
[2017-07-26] MEDS: ALBUMIN 25% INJ 100 ML IV PRN ×2 (11:12→11:13)
[2017-07-26] MEDS: cefTRIAXone INJ 2,000 MG in SODIUM CHLORIDE 0.9% INJ 100 ML IV SCH (14:38)
[2017-07-26] MEDS ORDERED: WARFARIN SOD 3 MG TAB PO SCH (16:00)
--- NOTE | 2017-07-26 16:19 | HHI.IDPN ---
Subjective Subjective Remarks Mr. Valle is an 81-year-old male with past medical history significant for A. fib, history of cardiac ablation, history of pacemaker, end-stage renal disease on hemodialysis Wednesday. Of note patient appears to have had aspiration of the left elbow on July 09 with growth of staph lugdenensis. Patient reports that he has been following up with Dr. Gonzalez his orthopedic surgeon and was started on amoxicillin. Due to persistent swelling and pain in his left elbow patient presented to the emergency department on July 21, 2017. ED contacted Dr. Gonzalez his orthopedic surgeon and patient underwent incision and drainage of the abscess. Intra-Op cultures are pending. Patient also had blood cultures drawn on admission which are now positive for coag negative staph. At the time of my evaluation patient is admitted to the floor. Was alert opens his eyes and is able to provide me some brief history. Although does not appear to be very reliable. Per review of records it appears that he has a history of signing off AGAINST MEDICAL ADVICE in the past. Unsure if he was compliant with his medications as his medication administration record for home meds is not show amoxicillin as one of the meds for him. Infectious disease is consulted for evaluation and management of left elbow septic arthritis and staph coag negative bacteremia. Notes reviewed Afebrile States his elbow feels fine One BC with 2 diff Coag Neg Staph The other BC with Staph urealyticus Fluid C/S Staph lugdenensis x 2 separate blood cultures. Second set no ID yet Repeat blood culture negative Antibiotics Ancef Lines PIV no evidence of infection Past Medical History History of bursitis History of aspiration on July 09, 2017 of the left elbow: Cultures positive for staph ligamentous patient was being treated with reportedly amoxicillin per patient's report Past Surgical History Aspiration of the left elbow Allergies: Coded Allergies: clindamycin (Verified Allergy, Severe, Rash, 07/21/17) ciprofloxacin (Verified Allergy, Unknown, 07/21/17) Objective . Vital Signs Date Time Temp Pulse Resp B/P (MAP) Pulse Ox O2 Delivery O2 Flow Rate FiO2 07/26/17 14:42 97.4 77 17 104/59 (74) 97 07/26/17 12:35 97.3 74 20 107/55 (72) 97 07/26/17 11:02 Nasal Cannula 2.00 07/26/17 08:20 97.3 74 20 107/55 (72) 97 07/26/17 08:06 100 07/26/17 07:00 Nasal Cannula 2.00 07/26/17 04:00 73 07/26/17 04:00 98.0 70 20 95/50 (65) 100 07/26/17 00:00 98.5 72 20 97/50 (66) 95 07/26/17 00:00 78 07/25/17 20:16 Nasal Cannula 2.00 07/25/17 20:00 69 07/25/17 20:00 Nasal Cannula 2.00 07/25/17 20:00 96.1 70 20 98/53 (68) 97 07/25/17 17:16 97 Nasal Cannula 2.00 07/26/17 07/26/17 07/27/17 15:00 23:00 07:00 Intake Total 200 ml Output Total 1000 ml Balance -800 ml IV Total 200 ml Hemodialysis 1000 ml . Microbiology Date/Time Source Procedure Growth Status 07/23/17 18:40 Blood Peripheral Aerobic Blood Culture - Preliminary NO GROWTH IN 3 DAYS Resulted 07/23/17 18:40 Blood Peripheral Anaerobic Blood Culture - Preliminary NO GROWTH IN 3 DAYS Resulted 07/23/17 18:30 Blood Peripheral Aerobic Blood Culture - Preliminary NO GROWTH IN 3 DAYS Resulted 07/23/17 18:30 Blood Peripheral Anaerobic Blood Culture - Preliminary NO GROWTH IN 3 DAYS Resulted Imaging Last Impressions Foot X-Ray 07/24/17 Signed Impressions: CONCLUSION: Osteopenia of the bony structures with some primary degenerative changes at the first metatarsal-phalangeal joint. Ankle X-Ray 07/24/17 Signed Impressions: CONCLUSION: Osteopenia of the bony structures with some mild degenerative changes at the mo rtise joint. Elbow X-Ray 07/21/17 Signed Impressions: CONCLUSION: 1. New nonspecific soft tissue swelling at the elbow. 2. 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 No significant change compared to the prior study from 2017. Physical Exam GENERAL: awake and alert, in no apparent distress. SKIN: No rashes, ecchymoses or lesions. Cool and dry. HEAD: Atraumatic. Normocephalic. No temporal or scalp tenderness. EYES: Pupils equal round and reactive. Extraocular motions intact. No scleral icterus. No injection or drainage. ENT: Nose without bleeding, purulent drainage or septal hematoma. Moist oral mucosa. NECK: Trachea midline.Supple, nontender, no meningeal signs. CARDIOVASCULAR: Murmur appreciated. RESPIRATORY: Clear to auscultation. Breath sounds equal bilaterally. No wheezes , rales, or rhonchi. GASTROINTESTINAL: Abdomen soft, non-tender, nondistended. MUSCULOSKELETAL: Left elbow with wound VAC. NEUROLOGICAL: Awake and alert. Nonfocal exam. Psych cooperative IV line sites with no evidence of infection. Assessment & Plan Remarks Left elbow septic arthritis status post irrigation and drainage. Left elbow aspiration with evidence of staph lugdunensis Staph coag negative bacteremia. End-stage renal disease on hemodialysis using right upper extremity AV fistula( patient undergoes dialysis on Wednesday's) Hypotension ? cardiac meds induced. Less likely sepsis related. Recommendations Follow blood cultures DC Ancef for now pending cultures. Start Ceftriaxone IV Await 2 D ECHO to r/o dissemination Follow cultures Monitor progress Discussed with Ana Fox MD July 26, 2017 16:19
--- NOTE | 2017-07-26 17:54 | HHI.NPPN ---
Subjective History of Present Illness The patient is an 81 yo [place] male who is known to our services for ESRD on HD. He presented to the ED on 523 with complaints of L elbow pain. He has had known bursitis and has been having aspirated periodically. The bursa had become more painful and red so the patient decided to come to the ED for eval. patient now status post I&D of same. Pus was found. Interval History s/p HD today Wound VAC on L elbow with minimal drainage Says that he is feeling much better today (Verena Arita) Review of Systems General Constitutional: Fatigue (Verena Arita) Objective Data Data 07/26/17 07/27/17 19:00 07:00 Intake Total 200 ml Output Total 1000 ml Balance -800 ml IV Total 200 ml Hemodialysis 1000 ml Vital Signs Date Time Temp Pulse Resp B/P (MAP) Pulse Ox O2 Delivery O2 Flow Rate FiO2 07/26/17 14:42 97.4 77 17 104/59 (74) 97 07/26/17 12:35 97.3 74 20 107/55 (72) 97 07/26/17 11:02 Nasal Cannula 2.00 07/26/17 08:20 97.3 74 20 107/55 (72) 97 07/26/17 08:06 100 07/26/17 07:00 Nasal Cannula 2.00 07/26/17 04:00 73 07/26/17 04:00 98.0 70 20 95/50 (65) 100 07/26/17 00:00 98.5 72 20 97/50 (66) 95 07/26/17 00:00 78 07/25/17 20:16 Nasal Cannula 2.00 07/25/17 20:00 69 07/25/17 20:00 Nasal Cannula 2.00 07/25/17 20:00 96.1 70 20 98/53 (68) 97 (Verena Arita) -: 07/23/17 0738 07/23/17 0738 Imaging Last Impressions Foot X-Ray 07/24/17 0000 Signed Impressions: CONCLUSION: Osteopenia of the bony structures with some primary degenerative changes at the first metatarsal-phalangeal joint. Ankle X-Ray 07/24/17 0000 Signed Impressions: CONCLUSION: Osteopenia of the bony structures with some mild degenerative changes at the mo rtise joint. Elbow X-Ray 07/21/17 0000 Signed Impressions: CONCLUSION: 1. New nonspecific soft tissue swelling at the elbow. 2. 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 No significant change compared to the prior study from 2017. Medication Review Current Medications Medications (Trade) Dose Ordered Sig/Sara Route Start Time Stop Time Status Last Admin (Tylenol) 650 mg Q4H PRN PO 07/21/17 20:00 (Zofran Odt) 4 mg Q6H PRN PO 07/21/17 20:00 (Narcan Inj) 0.4 mg UNSCH PRN IV PUSH 07/21/17 20:00 (Milk Of Magnesia Liq) 30 ml Q12H PRN PO 07/21/17 20:00 (Senokot) 17.2 mg Q12H PRN PO 07/21/17 20:00 (Dulcolax Supp) 10 mg DAILY PRN RECTAL 07/21/17 20:00 (Lactulose Liq) 30 ml DAILY PRN PO 07/21/17 20:00 (Cordarone) 200 mg BID PO 07/22/17 09:00 07/26/17 08:42 (Phoslo) 667 mg TID PO 07/22/17 09:00 07/26/17 17:16 (Vasotec) 5 mg DAILY PO 07/22/17 09:00 Future Hold (Requip) 2 mg TID PO 07/22/17 09:00 07/26/17 17:16 (Protonix) 20 mg DAILY PO 07/22/17 09:00 07/26/17 08:43 (Lopressor) 25 mg Q12HR PO 07/22/17 09:00 Future Hold (Alphagan 0.2% Opth Soln) 1 drop Q12HR LEFT EYE 07/22/17 09:00 07/26/17 08:41 (Timoptic 0.5% Opth Soln) 1 drop Q12HR LEFT EYE 07/22/17 09:00 07/26/17 08:42 (Cardizem Cd) 180 mg DAILY PO 07/22/17 09:00 Future Hold (Morphine Inj) 2 mg Q4H PRN IV PUSH 07/22/17 08:15 07/23/17 01:32 (Proamatine) 5 mg TID@07,12,17 PO 07/22/17 17:00 07/26/17 17:16 Sodium Chloride 1,000 ml @ 0 mls/hr Q0M PRN OTHER 07/22/17 14:41 07/23/17 12:00 (Heparin Inj) 8,000 units UNSCH PRN IV FLUSH 07/22/17 14:45 Sodium Chloride 1,000 ml @ 200 mls/hr Q5H PRN IV 07/22/17 14:41 Sodium Chloride 1,000 ml @ 0 mls/hr Q0M PRN OTHER 07/22/17 14:41 (Mannitol Inj) 12.5 gm UNSCH PRN IV 07/22/17 14:45 Albumin Human 100 ml @ 60 mls/hr UNSCH PRN IV 07/22/17 14:45 07/26/17 11:13 (NS Flush) 5 ml UNSCH PRN IV FLUSH 07/22/17 14:45 (Heparin Inj) UNSCH PRN .XX 07/22/17 14:45 (Gentamicin Inj) 20 mg UNSCH PRN OTHER 07/22/17 14:45 (Tylenol) 650 mg UNSCH PRN PO 07/22/17 14:45 (Benadryl) 25 mg UNSCH PRN PO 07/22/17 14:45 (Nitrostat Sl) 0.4 mg UNSCH PRN SL 07/22/17 14:45 (Catapres) 0.1 mg UNSCH PRN PO 07/22/17 14:45 (Gelfoam 12 Mm/7 Mm Top) 1 foam UNSCH PRN TOP 07/22/17 14:45 07/23/17 12:00 (Zofran Odt) 4 mg UNSCH PRN PO 07/22/17 15:15 (NS Flush) 2 ml UNSCH PRN IV FLUSH 07/22/17 19:30 (NS Flush) 2 ml BID IV FLUSH 07/22/17 21:00 07/26/17 08:41 Pharmacy Profile Note 0 ml @ 0 mls/hr UNSCH OTHER 07/24/17 12:00 ([place] 5-325 Mg) 1 tab Q4H PRN PO 07/25/17 11:45 ([place] 5-325 Mg) 2 tab Q4H PRN PO 5/27/18 11:45 07/26/17 09:16 (Coumadin) 3 mg DAILY@1600 PO 07/26/17 16:00 07/26/17 15:03 Ceftriaxone Sodium 2000 mg/ Sodium Chloride 100 ml @ 200 mls/hr Q24H IV 07/26/17 15:00 07/26/17 14:38 (Verena Arita) Physical Exam General Appearance: No Acute Distress, Comfortable (Verena Arita) Eyes Eye Exam: Sclera White (Verena Arita) Pulmonary Resp Exam: Clear Bilaterally, Breath Sounds Equal (Verena Arita) Cardiology CV Exam: Irregular, Murmur (Verena Arita) Gastrointestinal/Abdomen GI Exam: Soft, Non-Tender (Verena Arita) Integumentary Skin Exam: Clear, Warm (Verena Arita) Extremeties Extremities Exam: No Edema (Verena Arita) Neurologic Neuro Exam: Alert, Awake, Speech Clear (Verena Arita) Assessment/Plan Discussed Condition With: Patient Problem List: (1) ESRD (end stage renal disease) on dialysis ICD Codes: N18.6 - End stage renal failure on dialysis; Z99.2 - Dependence on renal dialysis Status: Acute Plan: Continue on HD MWF as before Continue midodrine. Continue on calcium acetate Medications should be adjusted for the patient's ESRD. Avoid gadolinium. (2) Hypotension ICD Codes: I95.9 - Hypotension, unspecified Plan: Improved with midodrine. Continue same. (3) Bacteremia ICD Codes: R78.81 - Bacteremia Status: Acute Plan: Repeat BCx neg x72h Continue on abx as per ID (4) Olecranon bursitis, left elbow ICD Codes: M70.22 - Olecranon bursitis, left elbow Plan: Management as per ortho (5) Atrial fibrillation with RVR ICD Codes: I48.91 - Unspecified atrial fibrillation Status: Acute Plan: Cardiology consult appreciated. To continue on amiodarone for the present. Blood pressure improved and heart rate is controlled on amiodarone. (6) Cognitive change ICD Codes: R41.89 - Other symptoms and signs involving cognitive functions and awareness Status: Chronic Plan: The patient has been showing some cognitive changes over the last few months. May be related to dementia. I believe that SNF placement would be beneficial for the patient although he seems somewhat uninterested in this. (Verena Arita) Plan The exam, history, and the medical decision-making described in the above note were completed with the assistance of the PA-C. I reviewed and agree with the findings presented. (Alice Murcia MD) Verena Arita July 26, 2017 17:54 Alice Murcia MD July 28, 2017 17:13
[2017-07-27] VITALS (10 sets, daily range): BP systolic 90–110; BP diastolic 50–59; PULSE 69–75; RESP 16–20; TEMP 97.2–98.9; O2SAT 92–100
[2017-07-27] MEDS: MIDODRINE 5 MG TAB PO SCH ×3 (06:25→17:58)
[2017-07-27 06:50] LABS: INTERNATIONAL NORMALIZED RATIO 2.9 RATIO; PROTHROMBIN TIME - PATIENT 29.2 SEC (9.8-11.6)
[2017-07-27] MEDS: CALCIUM ACETATE 667 MG CAP PO SCH ×3 (09:04→17:56)
[2017-07-27] MEDS: AMIODARONE 200 MG TAB PO SCH ×2 (09:04→21:34)
[2017-07-27] MEDS: PANTOPRAZOLE SOD 20 MG DELAYED RELEASE TAB PO SCH (09:04)
[2017-07-27] MEDS: BRIMONIDINE TARTRATE 0.2% OPHT SOLN 5 ML BTL LEFT EYE SCH ×2 (09:05→21:33)
[2017-07-27] MEDS: SODIUM CHLORIDE 0.9% FLUSH 10 ML FLUSH IV FLUSH SCH ×2 (09:05→21:32)
[2017-07-27] MEDS: TIMOLOL MALEATE 0.5% OPHT SOLN 5 ML BTL LEFT EYE SCH ×2 (09:05→21:33)
--- NOTE | 2017-07-27 10:20 | HHI.PR ---
Subjective Remarks in no acute distress. pain is controlled. no fever or new complaints. Objective Vitals Vital Signs Date Time Temp Pulse Resp B/P (MAP) Pulse Ox O2 Delivery O2 Flow Rate FiO2 07/27/17 10:03 92 Nasal Cannula 2.00 07/27/17 08:00 97.2 70 19 102/57 (72) 96 07/27/17 04:00 70 07/27/17 04:00 98.1 70 18 102/55 (71) 97 07/27/17 00:00 98.9 70 18 90/50 (63) 97 07/27/17 00:00 69 07/26/17 20:00 94 Room Air 07/26/17 20:00 72 07/26/17 20:00 97.6 66 17 115/57 (76) 94 07/26/17 16:00 69 07/26/17 14:42 97.4 77 17 104/59 (74) 97 07/26/17 12:35 97.3 74 20 107/55 (72) 97 07/26/17 12:00 69 07/26/17 11:02 Nasal Cannula 2.00 I/O 07/26/17 07/26/17 07/26/17 07/27/17 07/27/17 07/27/17 07:00 15:00 23:00 07:00 15:00 23:00 Intake Total 460 ml 200 ml 460 ml 1850 ml Output Total 1000 ml Balance 460 ml -800 ml 460 ml 1850 ml Intake Oral 360 ml 360 ml 1850 ml IV Total 100 ml 200 ml 100 ml Hemodialysis 1000 ml # Bowel Movements 1 2 2 Result Diagram: 07/23/17 0738 07/23/17 0738 Imaging Last Impressions Foot X-Ray 07/24/17 0000 Signed Impressions: CONCLUSION: Osteopenia of the bony structures with some primary degenerative changes at the first metatarsal-phalangeal joint. Ankle X-Ray 07/24/17 0000 Signed Impressions: CONCLUSION: Osteopenia of the bony structures with some mild degenerative changes at the mo rtise joint. Elbow X-Ray 07/21/17 0000 Signed Impressions: CONCLUSION: 1. New nonspecific soft tissue swelling at the elbow. 2. 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 No significant change compared to the prior study from 2017. Objective Remarks GENERAL: elderly male, in no apparent distress. CARDIOVASCULAR: Regular rate and regular rhythm without murmurs, gallops, or rubs. RESPIRATORY: Clear to auscultation. Breath sounds equal bilaterally. No wheezes , rales, or rhonchi. GASTROINTESTINAL: Abdomen soft, non-tender, nondistended. Normal, active bowel sounds MUSCULOSKELETAL:left elbow- with wound vac in place. NEURO: awake and alert Procedures Irrigation and debridement, excision of olecranon bursa left elbow Medications and IVs Inpatient Medications Acetaminophen (Tylenol) 650 mg UNSCH PRN PO for headach, pain, temp > 101F; Start 07/22/17 at 14:45 Acetaminophen/ Hydrocodone Bitart ([place] 5-325 Mg) 2 tab Q4H PRN PO PAIN 8-10 Last administered on 07/26/17at 21:37; Start 07/25/17 at 11:45 Albumin Human 100 ml @ 60 mls/hr UNSCH PRN IV WITH DIALYSIS Last administered on 07/26/17at 11:13; Start 07/22/17 at 14:45 Amiodarone HCl (Cordarone) 200 mg BID PO Last administered on 07/27/17at 09:04; Start 07/22/17 at 09:00 Bisacodyl (Dulcolax Supp) 10 mg DAILY PRN RECTAL SEVERE CONSITIPATION; Start at 20:00 Brimonidine Tartrate (Alphagan 0.2% Opt Soln) 1 drop Q12HR LEFT EYE Last administered on 07/27/17at 09:05; Start 07/22/17 at 09:00 Calcium Acetate (Phoslo) 667 mg TID PO Last administered on 07/27/17at 09:04; Start 07/22/17 at 09:00 Calcium Gluconate 1 gm/Sodium Chloride 100 ml @ 100 mls/hr ONCE ONCE IV ; Start 07/21/17 at 19:00; Stop 07/21/17 at 19:46; Status DC Cefazolin Sodium 1000 mg/Sodium Chloride 100 ml @ 200 mls/hr Q12H IV Last administered on 07/26/17at 01:10; Start 07/23/17 at 13:00; Stop 07/26/17 at 14:29 ; Status DC Cefazolin Sodium/ Dextrose 50 ml @ 100 mls/hr Q8H IV Last administered on 5/25 /18at 01:04; Start 07/22/17 at 01:00; Stop 07/23/17 at 08:33; Status DC Ceftriaxone Sodium 2000 mg/ Sodium Chloride 100 ml @ 200 mls/hr Q24H IV Last administered on 07/26/17at 14:38; Start 07/26/17 at 15:00 Clonidine (Catapres) 0.1 mg UNSCH PRN PO for BP > 180/100 X 2 readings; Start 07/22/17 at 14:45 Dextrose (D50w (Syr) Inj) 25 ml ONCE ONCE IV PUSH ; Start 07/21/17 at 19:00; Stop 07/21/17 at 19:46; Status DC Digoxin (Lanoxin Inj) 0.5 mg ONCE ONCE IV PUSH Last administered on 07/23/17at 18:03; Start 07/23/17 at 16:30; Stop 07/23/17 at 16:31; Status DC Diltiazem HCl (Cardizem Cd) 180 mg DAILY PO ; Start 07/22/17 at 09:00; Status Future Hold Diphenhydramine HCl (Benadryl) 25 mg UNSCH PRN PO for hives/itching/anaphylaxis ; Start 07/22/17 at 14:45 Enalapril Maleate (Vasotec) 5 mg DAILY PO ; Start 07/22/17 at 09:00; Status Future Hold Gelatin (Gelfoam 12 Mm/7 Mm Top) 1 foam UNSCH PRN TOP SEE LABEL COMMENTS Last administered on 07/23/17at 12:00; Start 07/22/17 at 14:45 Gentamicin Sulfate (Gentamicin Inj) 20 mg UNSCH PRN OTHER WITH DIALYSIS; Start 07/22/17 at 14:45 Heparin Sodium (Porcine) (Heparin Inj) UNSCH PRN .XX WITH DIALYSIS; Start at 14:45 Hydromorphone HCl (Dilaudid Pf Inj) 0.5 mg NOW ONCE IV ; Start 07/22/17 at 21: 15; Stop 07/22/17 at 21:16; Status DC Lactulose (Lactulose Liq) 30 ml DAILY PRN PO SEVERE CONSITIPATION; Start at 20:00 Lidocaine/ Epinephrine (Xylocaine-Epi 1%-1:100,000 Inj) 50 ml ONCE ONCE INFIL ; Start 07/21/17 at 15:30; Stop 07/21/17 at 15:33; Status DC Magnesium Hydroxide (Milk Of Magnesia Liq) 30 ml Q12H PRN PO Mild constipation ; Start 07/21/17 at 20:00 Mannitol (Mannitol Inj) 12.5 gm UNSCH PRN IV WITH DIALYSIS; Start 07/22/17 at 14:45 Metoprolol Tartrate (Lopressor Inj) 2 mg NOW ONCE IV PUSH ; Start 07/22/17 at 21:15; Stop 07/22/17 at 21:16; Status DC Metoprolol Tartrate (Lopressor) 25 mg Q12HR PO ; Start 07/22/17 at 09:00; Status Future Hold Midodrine (Proamatine) 5 mg TID@07,12,17 PO Last administered on 07/27/17at 06: 25; Start 07/22/17 at 17:00 Miscellaneous Information ([facility] [place] Nursing Information) ALL NURSING DEPARTME... UNSCH PRN .XX SEE LABEL COMMENTS; Start 07/22/17 at 21:15; Stop 07/23/17 at 21: 14; Status DC Morphine Sulfate (Morphine Inj) 2 mg Q4H PRN IV PUSH BREAKTHROUGH PAIN Last administered on 07/23/17at 01:32; Start 07/22/17 at 08:15 Naloxone HCl (Narcan Inj) 0.4 mg UNSCH PRN IV PUSH SEE LABEL COMMENTS; Start at 20:00 Nitroglycerin (Nitrostat Sl) 0.4 mg UNSCH PRN SL CHEST PAIN; Start 07/22/17 at 14:45 Non-Formulary Medication 1 drop BID LEFT EYE ; Start 07/22/17 at 09:00; Stop at 09:00; Status DC Ondansetron HCl (Zofran Odt) 4 mg UNSCH PRN PO WITH DIALYSIS; Start 07/22/17 at 15:15 Ondansetron HCl (Zofran Inj) 4 mg UNSCH PRN IV PUSH WITH DIALYSIS; Start at 14:45; Stop 07/22/17 at 15:10; Status DC Pantoprazole Sodium (Protonix) 20 mg DAILY PO Last administered on 07/27/17at 09 :04; Start 07/22/17 at 09:00 Patient Medication Teaching (Coumadin Booklet) 1 ONCE ONCE .XX ; Start at 16:00; Stop 07/24/17 at 16:01; Status DC Pharmacy Profile Note 0 ml @ 0 mls/hr UNSCH OTHER ; Start 07/24/17 at 12:00 Potassium Chloride (KCl) 40 meq ONCE ONCE PO ; Start 07/21/17 at 19:00; Stop at 19:46; Status DC Ropinirole HCl (Requip) 2 mg TID PO Last administered on 07/27/17at 09:03; Start 07/22/17 at 09:00 Sennosides (Senokot) 17.2 mg Q12H PRN PO Moderate constipation; Start 07/21/17 at 20:00 Sodium Chloride (NS Flush) 2 ml BID IV FLUSH Last administered on 07/27/17at 09: 05; Start 07/22/17 at 21:00 Temazepam (Restoril) 15 mg ONCE ONCE PO Last administered on 07/22/17at 03:52; Start 07/22/17 at 03:00; Stop 07/22/17 at 03:01; Status DC Timolol Maleate (Timoptic 0.5% Opt Soln) 1 drop Q12HR LEFT EYE Last administered on 07/27/17at 09:05; Start 07/22/17 at 09:00 Vancomycin HCl 1000 mg/Sodium Chloride 250 ml @ 250 mls/hr ONCE ONCE IV Last administered on 07/21/17at 16:36; Start 07/21/17 at 16:15; Stop 07/21/17 at 17:14 ; Status DC Vancomycin HCl 1500 mg/Sodium Chloride 515 ml @ 257.5 mls/ hr ONCE ONCE IV Last administered on 07/23/17at 21:03; Start 07/23/17 at 20:00; Stop 07/23/17 at 21:59; Status DC Warfarin Sodium (Coumadin) 3 mg DAILY@1600 PO Last administered on 07/26/17at 15 :03; Start 07/26/17 at 16:00; Status Future Hold A/P Problem List: (1) Olecranon bursitis, left elbow ICD Code: M70.22 - Olecranon bursitis, left elbow (2) ESRD (end stage renal disease) on dialysis ICD Code: N18.6 - End stage renal failure on dialysis; Z99.2 - Dependence on renal dialysis Status: Acute (3) Atrial fibrillation Status: Chronic Assessment and Plan A/P Left elbow olecranon bursitis - s/p Irrigation and debridement, excision of olecranon bursa left elbow -wound vac management 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 -received a dose of Vancomycin on 07/21. -follow the cultures. staph bacteremia; on antibiotics as noted above- ID consulted.echo pending. ESRD -on HD- per nephrology. Atrial fibrillation - continue Amiodarone 200mg BID. - hold Cardizem and Metoprolol due to low-normal BP's. - resumed Coumadin. DVT prophylaxis; on Coumadin. Discharge Planning when cleared by ID -pending echo . Problem Qualifiers (1) Atrial fibrillation: Qualified Codes: I48.2 - Chronic atrial fibrillation Ruby Nice MD July 27, 2017 10:20
--- NOTE | 2017-07-27 12:35 | HHI.IDPN ---
Subjective Subjective Remarks Patient seen and examined on behalf of Dr. Madden Mr. Valle is an 81-year-old male with past medical history significant for A. fib, history of cardiac ablation, history of pacemaker, end-stage renal disease on hemodialysis Wednesday. Of note patient appears to have had aspiration of the left elbow on July 09 with growth of staph lugdenensis. Patient reports that he has been following up with Dr. Gonzalez his orthopedic surgeon and was started on amoxicillin. Due to persistent swelling and pain in his left elbow patient presented to the emergency department on July 21, 2017. ED contacted Dr. Gonzalez his orthopedic surgeon and patient underwent incision and drainage of the abscess. Intra-Op cultures are pending. Patient also had blood cultures drawn on admission which are now positive for coag negative staph. At the time of my evaluation patient is admitted to the floor. Was alert opens his eyes and is able to provide me some brief history. Although does not appear to be very reliable. Per review of records it appears that he has a history of signing off AGAINST MEDICAL ADVICE in the past. Unsure if he was compliant with his medications as his medication administration record for home meds is not show amoxicillin as one of the meds for him. Infectious disease is consulted for evaluation and management of left elbow septic arthritis and staph coag negative bacteremia. Notes reviewed he wants to know when lunch is coming left elbow pain controlled no fever no chills no rash reports chronic diarrhea, unchanged afebrile One BC with 2 diff Coag Neg Staph The other BC with Staph urealyticus Fluid C/S Staph lugdenensis x 2 separate blood cultures. Repeat blood culture negative Antibiotics IV Ceftriaxone Current Medications Medications (Trade) Dose Ordered Sig/Sara Route Start Time Stop Time Status Last Admin (Tylenol) 650 mg Q4H PRN PO 07/21/17 20:00 (Zofran Odt) 4 mg Q6H PRN PO 07/21/17 20:00 (Narcan Inj) 0.4 mg UNSCH PRN IV PUSH 07/21/17 20:00 (Milk Of Magnesia Liq) 30 ml Q12H PRN PO 07/21/17 20:00 (Senokot) 17.2 mg Q12H PRN PO 07/21/17 20:00 (Dulcolax Supp) 10 mg DAILY PRN RECTAL 07/21/17 20:00 (Lactulose Liq) 30 ml DAILY PRN PO 07/21/17 20:00 (Cordarone) 200 mg BID PO 07/22/17 09:00 07/27/17 09:04 (Phoslo) 667 mg TID PO 07/22/17 09:00 07/27/17 12:14 (Vasotec) 5 mg DAILY PO 07/22/17 09:00 Future Hold (Requip) 2 mg TID PO 07/22/17 09:00 07/27/17 12:14 (Protonix) 20 mg DAILY PO 07/22/17 09:00 07/27/17 09:04 (Lopressor) 25 mg Q12HR PO 07/22/17 09:00 Future Hold (Alphagan 0.2% Opth Soln) 1 drop Q12HR LEFT EYE 07/22/17 09:00 07/27/17 09:05 (Timoptic 0.5% Opth Soln) 1 drop Q12HR LEFT EYE 07/22/17 09:00 07/27/17 09:05 (Cardizem Cd) 180 mg DAILY PO 07/22/17 09:00 Future Hold (Morphine Inj) 2 mg Q4H PRN IV PUSH 07/22/17 08:15 07/23/17 01:32 (Proamatine) 5 mg TID@07,12,17 PO 07/22/17 17:00 07/27/17 12:16 Sodium Chloride 1,000 ml @ 0 mls/hr Q0M PRN OTHER 07/22/17 14:41 07/23/17 12:00 (Heparin Inj) 8,000 units UNSCH PRN IV FLUSH 07/22/17 14:45 Sodium Chloride 1,000 ml @ 200 mls/hr Q5H PRN IV 07/22/17 14:41 Sodium Chloride 1,000 ml @ 0 mls/hr Q0M PRN OTHER 07/22/17 14:41 (Mannitol Inj) 12.5 gm UNSCH PRN IV 07/22/17 14:45 Albumin Human 100 ml @ 60 mls/hr UNSCH PRN IV 07/22/17 14:45 07/26/17 11:13 (NS Flush) 5 ml UNSCH PRN IV FLUSH 07/22/17 14:45 (Heparin Inj) UNSCH PRN .XX 07/22/17 14:45 (Gentamicin Inj) 20 mg UNSCH PRN OTHER 07/22/17 14:45 (Tylenol) 650 mg UNSCH PRN PO 07/22/17 14:45 (Benadryl) 25 mg UNSCH PRN PO 07/22/17 14:45 (Nitrostat Sl) 0.4 mg UNSCH PRN SL 07/22/17 14:45 (Catapres) 0.1 mg UNSCH PRN PO 07/22/17 14:45 (Gelfoam 12 Mm/7 Mm Top) 1 foam UNSCH PRN TOP 07/22/17 14:45 07/23/17 12:00 (Zofran Odt) 4 mg UNSCH PRN PO 07/22/17 15:15 (NS Flush) 2 ml UNSCH PRN IV FLUSH 07/22/17 19:30 (NS Flush) 2 ml BID IV FLUSH 07/22/17 21:00 07/27/17 09:05 Pharmacy Profile Note 0 ml @ 0 mls/hr UNSCH OTHER 07/24/17 12:00 ([place] 5-325 Mg) 1 tab Q4H PRN PO 07/25/17 11:45 07/27/17 09:03 ([place] 5-325 Mg) 2 tab Q4H PRN PO 07/25/17 11:45 07/26/17 21:37 (Coumadin) 3 mg DAILY@1600 PO 07/26/17 16:00 Future Hold 07/26/17 15:03 Ceftriaxone Sodium 2000 mg/ Sodium Chloride 100 ml @ 200 mls/hr Q24H IV 07/26/17 15:00 07/26/17 14:38 Lines PIV no evidence of infection Past Medical History History of bursitis History of aspiration on July 09, 2017 of the left elbow: Cultures positive for staph ligamentous patient was being treated with reportedly amoxicillin per patient's report Past Surgical History Aspiration of the left elbow (Yeny Daly) Allergies: Coded Allergies: clindamycin (Verified Allergy, Severe, Rash, 07/21/17) ciprofloxacin (Verified Allergy, Unknown, 07/21/17) Objective . Vital Signs Date Time Temp Pulse Resp B/P (MAP) Pulse Ox O2 Delivery O2 Flow Rate FiO2 07/27/17 10:03 92 Nasal Cannula 2.00 07/27/17 08:00 97.2 70 19 102/57 (72) 96 07/27/17 08:00 75 07/27/17 08:00 Room Air 2.00 07/27/17 04:00 70 07/27/17 04:00 98.1 70 18 102/55 (71) 97 07/27/17 00:00 98.9 70 18 90/50 (63) 97 07/27/17 00:00 69 07/26/17 20:00 94 Room Air 07/26/17 20:00 72 07/26/17 20:00 97.6 66 17 115/57 (76) 94 07/26/17 16:00 69 07/26/17 14:42 97.4 77 17 104/59 (74) 97 07/26/17 12:35 97.3 74 20 107/55 (72) 97 Imaging Last Impressions Foot X-Ray 07/24/17 0000 Signed Impressions: CONCLUSION: Osteopenia of the bony structures with some primary degenerative changes at the first metatarsal-phalangeal joint. Ankle X-Ray 07/24/17 0000 Signed Impressions: CONCLUSION: Osteopenia of the bony structures with some mild degenerative changes at the mo rtise joint. Elbow X-Ray 07/21/17 0000 Signed Impressions: CONCLUSION: 1. New nonspecific soft tissue swelling at the elbow. 2. 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 No significant change compared to the prior study from 2017. Physical Exam GENERAL: WDWN elderly male patient, INAD. Awake and alert. Appears comfortable. SKIN: Cool and dry. + 1.5x1.5 circular open lesion on inner aspect of left lower leg with beefy red granulation tissue noted in wound bed. HEAD: Atraumatic. Normocephalic. No temporal or scalp tenderness. EYES: Pupils equal round and reactive. Extraocular motions intact. No scleral icterus. No injection or drainage. ENT: Nose without bleeding, purulent drainage or septal hematoma. Moist oral mucosa. NECK: Trachea midline.Supple, nontender, no meningeal signs. CARDIOVASCULAR: Murmur appreciated. RESPIRATORY: Clear to auscultation. Breath sounds equal bilaterally. No wheezes , rales, or rhonchi. GASTROINTESTINAL: Abdomen soft, non-tender, nondistended. MUSCULOSKELETAL: Left elbow with wound VAC in place. RUE with AV fistula NEUROLOGICAL: Awake and alert. Nonfocal exam. Psych cooperative IV line sites with no evidence of infection. (Yeny Daly) Assessment & Plan Remarks Left elbow septic arthritis status post irrigation and drainage. Left elbow aspiration with evidence of staph lugdunensis, pansensitive Staph coag negative bacteremia. Repeat BCX with no growth Open lesion LLE End-stage renal disease on hemodialysis using right upper extremity AV fistula( patient undergoes dialysis on Wednesday's) Hypotension ? cardiac meds induced. Less likely sepsis related. Recommendations Continue on IV Ceftriaxone Await 2 D ECHO to r/o dissemination Wound care ordered for LLE open lesion Monitor progress (Yeny Daly) Remarks The exam, history, and the medical decision-making described in the above note were completed with the assistance of the mid-level provider. I reviewed and agree with the findings presented. I attest that I had a [id number] encounter with the patient on the same day, and personally performed and documented my assessment and findings in the medical record. Wound vac still in place. dw CM: needs IV antibiotics on discharge. Highly recommend rehab placement as patient does not appear reliable or capable to do this on his own. Will follow prn. Please call sooner if rehab arranged. (Ana Madden MD) Yeny Daly July 27, 2017 12:35 Ana Madden MD July 27, 2017 18:19
--- NOTE | 2017-07-27 13:20 | HHI.NPPN ---
Subjective History of Present Illness The patient is an 81 yo [place] male who is known to our services for ESRD on HD. He presented to the ED on 523 with complaints of L elbow pain. He has had known bursitis and has been having aspirated periodically. The bursa had become more painful and red so the patient decided to come to the ED for eval. patient now status post I&D of same. Pus was found. Interval History Pt feeling OK No complaints (Verena Arita) Review of Systems General Constitutional: Fatigue (Verena Arita) Objective Data Data Vital Signs Date Time Temp Pulse Resp B/P (MAP) Pulse Ox O2 Delivery O2 Flow Rate FiO2 07/27/17 12:00 70 07/27/17 10:03 92 Nasal Cannula 2.00 07/27/17 08:00 97.2 70 19 102/57 (72) 96 07/27/17 08:00 75 07/27/17 08:00 Room Air 2.00 07/27/17 04:00 70 07/27/17 04:00 98.1 70 18 102/55 (71) 97 07/27/17 00:00 98.9 70 18 90/50 (63) 97 07/27/17 00:00 69 07/26/17 20:00 94 Room Air 07/26/17 20:00 72 07/26/17 20:00 97.6 66 17 115/57 (76) 94 07/26/17 16:00 69 07/26/17 14:42 97.4 77 17 104/59 (74) 97 (Verena Arita) -: 07/23/17 0738 07/23/17 0738 Medication Review Current Medications Medications (Trade) Dose Ordered Sig/Sara Route Start Time Stop Time Status Last Admin (Tylenol) 650 mg Q4H PRN PO 07/21/17 20:00 (Zofran Odt) 4 mg Q6H PRN PO 07/21/17 20:00 (Narcan Inj) 0.4 mg UNSCH PRN IV PUSH 07/21/17 20:00 (Milk Of Magnesia Liq) 30 ml Q12H PRN PO 07/21/17 20:00 (Senokot) 17.2 mg Q12H PRN PO 07/21/17 20:00 (Dulcolax Supp) 10 mg DAILY PRN RECTAL 07/21/17 20:00 (Lactulose Liq) 30 ml DAILY PRN PO 07/21/17 20:00 (Cordarone) 200 mg BID PO 07/22/17 09:00 07/27/17 09:04 (Phoslo) 667 mg TID PO 07/22/17 09:00 07/27/17 12:14 (Vasotec) 5 mg DAILY PO 07/22/17 09:00 Future Hold (Requip) 2 mg TID PO 07/22/17 09:00 07/27/17 12:14 (Protonix) 20 mg DAILY PO 07/22/17 09:00 07/27/17 09:04 (Lopressor) 25 mg Q12HR PO 07/22/17 09:00 Future Hold (Alphagan 0.2% Opth Soln) 1 drop Q12HR LEFT EYE 07/22/17 09:00 07/27/17 09:05 (Timoptic 0.5% Opth Soln) 1 drop Q12HR LEFT EYE 07/22/17 09:00 07/27/17 09:05 (Cardizem Cd) 180 mg DAILY PO 07/22/17 09:00 Future Hold (Morphine Inj) 2 mg Q4H PRN IV PUSH 07/22/17 08:15 07/23/17 01:32 (Proamatine) 5 mg TID@07,12,17 PO 07/22/17 17:00 07/27/17 12:16 Sodium Chloride 1,000 ml @ 0 mls/hr Q0M PRN OTHER 07/22/17 14:41 07/23/17 12:00 (Heparin Inj) 8,000 units UNSCH PRN IV FLUSH 07/22/17 14:45 Sodium Chloride 1,000 ml @ 200 mls/hr Q5H PRN IV 07/22/17 14:41 Sodium Chloride 1,000 ml @ 0 mls/hr Q0M PRN OTHER 07/22/17 14:41 (Mannitol Inj) 12.5 gm UNSCH PRN IV 07/22/17 14:45 Albumin Human 100 ml @ 60 mls/hr UNSCH PRN IV 07/22/17 14:45 07/26/17 11:13 (NS Flush) 5 ml UNSCH PRN IV FLUSH 07/22/17 14:45 (Heparin Inj) UNSCH PRN .XX 07/22/17 14:45 (Gentamicin Inj) 20 mg UNSCH PRN OTHER 07/22/17 14:45 (Tylenol) 650 mg UNSCH PRN PO 07/22/17 14:45 (Benadryl) 25 mg UNSCH PRN PO 07/22/17 14:45 (Nitrostat Sl) 0.4 mg UNSCH PRN SL 07/22/17 14:45 (Catapres) 0.1 mg UNSCH PRN PO 07/22/17 14:45 (Gelfoam 12 Mm/7 Mm Top) 1 foam UNSCH PRN TOP 07/22/17 14:45 07/23/17 12:00 (Zofran Odt) 4 mg UNSCH PRN PO 07/22/17 15:15 (NS Flush) 2 ml UNSCH PRN IV FLUSH 07/22/17 19:30 (NS Flush) 2 ml BID IV FLUSH 07/22/17 21:00 07/27/17 09:05 Pharmacy Profile Note 0 ml @ 0 mls/hr UNSCH OTHER 07/24/17 12:00 ([place] 5-325 Mg) 1 tab Q4H PRN PO 07/25/17 11:45 07/27/17 09:03 ([place] 5-325 Mg) 2 tab Q4H PRN PO 07/25/17 11:45 07/26/17 21:37 (Coumadin) 3 mg DAILY@1600 PO 07/26/17 16:00 Future Hold 07/26/17 15:03 Ceftriaxone Sodium 2000 mg/ Sodium Chloride 100 ml @ 200 mls/hr Q24H IV 07/26/17 15:00 07/26/17 14:38 (Verena Arita) Physical Exam General Appearance: No Acute Distress, Comfortable (Verena Arita) Eyes Eye Exam: Sclera White (Verena Arita) Pulmonary Resp Exam: Clear Bilaterally, Breath Sounds Equal (Verena Arita) Cardiology CV Exam: Irregular, Murmur (Verena Arita) Gastrointestinal/Abdomen GI Exam: Soft, Non-Tender (Verena Arita) Integumentary Skin Exam: Clear, Warm (Verena Arita) Extremeties Extremities Exam: No Edema (Verena Arita) Neurologic Neuro Exam: Alert, Awake, Speech Clear (Verena Arita) Assessment/Plan Discussed Condition With: Patient Problem List: (1) ESRD (end stage renal disease) on dialysis ICD Codes: N18.6 - End stage renal failure on dialysis; Z99.2 - Dependence on renal dialysis Status: Acute Plan: Continue on HD MWF as before Continue midodrine. Continue on calcium acetate Medications should be adjusted for the patient's ESRD. Avoid gadolinium. (2) Hypotension ICD Codes: I95.9 - Hypotension, unspecified Plan: Improved with midodrine. Continue same. (3) Bacteremia ICD Codes: R78.81 - Bacteremia Status: Acute Plan: Repeat BCx neg x72h Continue on abx as per ID If outpatient abx to be required, can be given with HD but has to be arranged with case management and outpatient pharmacy as this is not a dialysis related infection. (4) Olecranon bursitis, left elbow ICD Codes: M70.22 - Olecranon bursitis, left elbow Plan: Management as per ortho (5) Atrial fibrillation with RVR ICD Codes: I48.91 - Unspecified atrial fibrillation Status: Acute Plan: Cardiology consult appreciated. To continue on amiodarone for the present. Blood pressure improved and heart rate is controlled on amiodarone. (6) Cognitive change ICD Codes: R41.89 - Other symptoms and signs involving cognitive functions and awareness Status: Chronic Plan: Resolved Appears to be back to baseline. (Verena Arita) Plan The exam, history, and the medical decision-making described in the above note were completed with the assistance of the PACatherine. I reviewed and agree with the findings presented. I attest that I had a [id number] encounter with the patient on the same day, and personally performed and documented my assessment and findings in the medical record. (Alice Murcia MD) Verena Arita July 27, 2017 13:19 Alice Murcia MD July 28, 2017 17:14
--- NOTE | 2017-07-27 14:18 | ECHRPT ---
Indication: SEPSIS CONCLUSIONS The left ventricular systolic function is mildly reduced with an estimated ejection fraction in the range of 45- 50%. Trace mitral valve regurgitation. Severe aortic valve stenosis (peak grad 68, mean grad 33, BRI 0.70). There is mild to moderate tricuspid valve regurgitation. The estimated pulmonary arterial pressure is 60.1 mmHg. BP: / HR: Rhythm: Sinus MEASUREMENTS (Male / Female) Normal Values Technical Quality:Good 2D ECHO LV Diastolic Diameter PLAX 5.0 cm 4.2 - 5.9 / 3.9 - 5.3 cm LV Systolic Diameter PLAX 3.8 cm IVS Diastolic Thickness 1.1 cm 0.6 - 1.0 / 0.6 - 0.9 cm LVPW Diastolic Thickness 1.2 cm 0.6 - 1.0 / 0.6 - 0.9 cm LV Relative Wall Thickness 0.5 LVOT Diameter 2.0 cm LA Systolic Diameter LX 4.4 cm 3.0 - 4.0 / 2.7 - 3.8 cm LV Ejection Fraction MOD 4C 51.4 % LV Ejection Fraction 4C AL 55.9 % M-MODE Aortic Root Diameter MM 1.5 cm AV Cusp Separation MM 1.0 cm DOPPLER AV Peak Velocity 413.0 cm/s AV Peak Gradient 68.2 mmHg AV Mean Gradient 33.0 mmHg AV Velocity Time Integral 87.2 cm LVOT Peak Velocity 94.7 cm/s LVOT Peak Gradient 3.6 mmHg LVOT Velocity Time Integral 19.4 cm AV Area Cont Eq vti 0.7 cm AV Area Cont Eq pk 0.7 cm MV Area PHT 3.1 cm Mitral E Point Velocity 118.0 cm/s Mitral A Point Velocity 45.4 cm/s Mitral E to A Ratio 2.6 LV E' Lateral Velocity 7.3 cm/s Mitral E to LV E' Lateral Ratio 16.1 LV E' Septal Velocity 5.3 cm/s Mitral E to LV E' Septal Ratio 22.4 TR Peak Velocity 354.0 cm/s TR Peak Gradient 50.1 mmHg Right Atrial Pressure 10.0 mmHg Pulmonary Artery Systolic Pressu 60.1 mmHg Right Ventricular Systolic Press 60.1 mmHg PV Peak Velocity 130.0 cm/s PV Peak Gradient 6.8 mmHg FINDINGS LEFT VENTRICLE The left ventricular systolic function is mildly reduced with an estimated ejection fraction in the range of 45- 50%. Normal left ventricular size. Wall thickness is measured at the upper limits of normal. No regional wall motion abnormalities are present. RIGHT VENTRICLE A pacemaker wire is noted. Gross normal LEFT ATRIUM The left atrial size is [id number] dilated. RIGHT ATRIUM The right atrial size is normal. ATRIAL SEPTUM Normal atrial septal thickness without atrial level shunting by limited color doppler interrogation. AORTA The aortic root and proximal ascending aorta are normal in size on limited imaging. MITRAL VALVE Grossly normal mitral valve. Trace mitral valve regurgitation. No mitral valve stenosis. Mild mitral annular calcification. AORTIC VALVE Trileaflet aortic valve. Moderate thickening of the aortic valve leaflets. Diffuse calcification of the aortic valve. Severe aortic valve stenosis (peak grad 68, mean grad 33, BRI 0.70) TRICUSPID VALVE Structurally normal tricuspid valve. There is mild to moderate tricuspid valve regurgitation. The estimated pulmonary arterial pressure is 60.1 mmHg. PULMONARY VALVE No pulmonary valve regurgitation or stenosis. VESSELS The inferior vena cava is normal in size. PERICARDIUM No pericardial effusion. Pillo Sibley DO (Electronically Signed) Final Date:27 Jul 2017 14:18
[2017-07-27] MEDS: cefTRIAXone INJ 2,000 MG in SODIUM CHLORIDE 0.9% INJ 100 ML IV SCH (14:44)
[2017-07-27] MEDS ORDERED: HYDR-3516 PO (14:53)
--- NOTE | 2017-07-27 17:24 | PD.WCN.NOT ---
Wound Consult Description: Consult for WOUND MANAGEMENT of left anterior lower leg per Malika MCCAULEY Communicated with: RN Dr Nice Recommendation: Patient should follow up with outpatient wound care center for left lower extremity ulcer. Cleanse left lower anterior leg wound with NS and gauze Q5D and PRN for saturation or dislodgement. Apply cut piece of Maxorb II into wound bed and cover with 4x4 gauze. Secure dressing with rolled gauze and tape. Date dressing. Additional Information: Patient seen on for wound evaluation of left lower extremity. Primapore (bordered gauze) dated today was removed using adhesive remover wipes to reveal a punched out appearing wound measuring 1.5cm x 1.5cm x 0.4cm of ~70% red moist tissue and ~30% pink moist tissue with no active drainage and no odor. Wound was cleansed with NS and gauze. Wound has open margins. Periwound is discolored with hemosiderin staining and also hairless which can indicated a mixed etiology of venous and arterial ulcer, otherwise periwound is unremarkable. Maxorb II was cut in the shape of the wound and placed in the wound bed. 4x4 gauze was used to cover the Maxorb II and secured with rolled gauze and paper tape dated today. Recommend to change dressing every 5 days and PRN for saturation or dislodgement. Aubrie Rodriguez [facility] July 27, 2017 17:24
[2017-07-27] MEDS: ACETAMINOPHEN/HYDROcodone 325 MG/5 MG TAB PO PRN (17:57)
[2017-07-28] VITALS (14 sets, daily range): BP systolic 99–154; BP diastolic 60–66; PULSE 56–75; RESP 16–18; TEMP 97.3–98; O2SAT 95–99
[2017-07-28 05:30] LABS: HEMATOCRIT 34.6 % (39.0-51.0); HEMOGLOBIN 11.6 GM/DL (13.0-17.0); MEAN CELL VOLUME 98.1 FL (80.0-100.0); MEAN CORPUSCULAR HGB CONC 33.6 % (32.0-36.0); MEAN PLATELET VOLUME 7.3 FL (7.0-11.0); PLATELET COUNT 161 TH/MM3 (150-450); RED BLOOD COUNT 3.53 MIL/MM3 (4.50-5.90); RED CELL DISTRIBUTION WIDTH 15.1 % (11.6-17.2); WHITE BLOOD COUNT 6.4 TH/MM3 (4.0-11.0)
[2017-07-28 05:52] LABS: INTERNATIONAL NORMALIZED RATIO 2.7 RATIO; PROTHROMBIN TIME - PATIENT 27.5 SEC (9.8-11.6)
[2017-07-28 06:00] LABS: ALBUMIN 2.4 GM/DL (3.4-5.0); BICARBONATE 29.2 MEQ/L (21.0-32.0); CALCIUM 8.1 MG/DL (8.5-10.1); CREATININE 7.28 MG/DL (0.60-1.30)
[2017-07-28 06:01] LABS: PHOSPHORUS 4.5 MG/DL (2.5-4.9)
[2017-07-28] MEDS: MIDODRINE 5 MG TAB PO SCH ×3 (06:16→17:51)
[2017-07-28] MEDS: PANTOPRAZOLE SOD 20 MG DELAYED RELEASE TAB PO SCH (08:17)
[2017-07-28] MEDS: AMIODARONE 200 MG TAB PO SCH ×2 (08:17→22:11)
[2017-07-28] MEDS: SODIUM CHLORIDE 0.9% FLUSH 10 ML FLUSH IV FLUSH SCH ×2 (08:18→22:11)
[2017-07-28] MEDS: CALCIUM ACETATE 667 MG CAP PO SCH ×3 (08:18→17:51)
[2017-07-28] MEDS: TIMOLOL MALEATE 0.5% OPHT SOLN 5 ML BTL LEFT EYE SCH ×2 (08:21→22:11)
[2017-07-28] MEDS: BRIMONIDINE TARTRATE 0.2% OPHT SOLN 5 ML BTL LEFT EYE SCH ×2 (08:21→22:11)
[2017-07-28] MEDS: GELATIN 12 MM/7 MM FOAM TOP PRN (10:31)
--- NOTE | 2017-07-28 11:22 | PD.ORT.PN ---
Subjective Subjective Remarks POD #6 Irrigation and debridement, excision of olecranon bursa left elbow, application wound vac Pt is in dialysis. Discussion and plan of care was had with RN. Wound vac was removed late last evening. Objective Vitals Vital Signs Date Time Temp Pulse Resp B/P (MAP) Pulse Ox O2 Delivery O2 Flow Rate FiO2 07/28/17 08:08 97.9 69 16 111/62 (78) 95 07/28/17 08:00 70 07/28/17 08:00 Nasal Cannula 2.00 07/28/17 04:10 97.3 70 16 99/60 (73) 95 07/28/17 04:00 70 07/28/17 00:11 70 07/27/17 23:00 97.8 72 16 110/58 (75) 100 07/27/17 20:30 97.6 70 17 105/57 (73) 99 Automatic Cuff 07/27/17 20:00 Nasal Cannula 2.00 07/27/17 19:46 70 07/27/17 18:36 99 Nasal Cannula 2.00 07/27/17 16:00 97.6 70 20 107/57 (74) 99 07/27/17 16:00 70 07/27/17 12:00 97.2 70 19 104/59 (74) 97 07/27/17 12:00 70 I/O 07/27/17 07/27/17 07/27/17 07/28/17 07/28/17 07/28/17 07:00 15:00 23:00 07:00 15:00 23:00 Intake Total 1850 ml 1200 ml 240 ml Output Total 550 ml 0 ml Balance 1850 ml 650 ml 240 ml Intake Oral 1850 ml 1200 ml 240 ml Output Urine Total 550 ml 0 ml # Voids 2 # Bowel Movements 2 1 2 Result Diagram: 07/28/17 0403 07/28/17 0403 Other Results Laboratory Tests Test 07/28/17 04:03 Prothromb Time International Ratio 2.7 RATIO Prothrombin Time 27.5 SEC (9.8-11.6) Imaging Last Impressions Elbow X-Ray 07/21/17 0000 Signed Impressions: CONCLUSION: 1. New nonspecific soft tissue swelling at the elbow. 2. 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 No significant change compared to the prior study from 2017. Procedures 07/22/17 Irrigation and debridement, excision of olecranon bursa left elbow, application wound vac Objective Remarks pt in dialysis, RN reports wound vac removed. wound healing well. Assessment & Plan Ortho Post Op Day #: 6 Problem List: (1) Infection of left olecranon bursa ICD Codes: M71.122 - Other infective bursitis, left elbow Status: Acute Assessment and Plan POD #6 Irrigation and debridement, excision of olecranon bursa left elbow, application wound vac Ortho status stable, progress rehab ROM. NWGary RICHARDS. Cx grew out staph species, Abx per infectious disease. D/C wound vac. Start daily dry dressing changes. Clear for d/c from an orthopedic standpoint. F/U with Dr Gonzalez or myself in 5-7 days. Jenny Vidal July 28, 2017 11:22
[2017-07-28] MEDS ORDERED: MIDO5TAB PO (11:28)
--- NOTE | 2017-07-28 12:40 | HHI.PR ---
Subjective Remarks in no acute distress. having his HD today. no fever. pain is controlled. Objective Vitals Vital Signs Date Time Temp Pulse Resp B/P (MAP) Pulse Ox O2 Delivery O2 Flow Rate FiO2 07/28/17 08:08 97.9 69 16 111/62 (78) 95 07/28/17 08:00 70 07/28/17 08:00 Nasal Cannula 2.00 07/28/17 04:10 97.3 70 16 99/60 (73) 95 07/28/17 04:00 70 07/28/17 00:11 70 07/27/17 23:00 97.8 72 16 110/58 (75) 100 07/27/17 20:30 97.6 70 17 105/57 (73) 99 Automatic Cuff 07/27/17 20:00 Nasal Cannula 2.00 07/27/17 19:46 70 07/27/17 18:36 99 Nasal Cannula 2.00 07/27/17 16:00 97.6 70 20 107/57 (74) 99 07/27/17 16:00 70 I/O 07/27/17 07/27/17 07/27/17 07/28/17 07/28/17 07/28/17 07:00 15:00 23:00 07:00 15:00 23:00 Intake Total 1850 ml 1200 ml 240 ml Output Total 550 ml 0 ml Balance 1850 ml 650 ml 240 ml Intake Oral 1850 ml 1200 ml 240 ml Output Urine Total 550 ml 0 ml # Voids 2 # Bowel Movements 2 1 2 Result Diagram: 07/28/17 0403 07/28/17 0403 Imaging Last Impressions Foot X-Ray 07/24/17 0000 Signed Impressions: CONCLUSION: Osteopenia of the bony structures with some primary degenerative changes at the first metatarsal-phalangeal joint. Ankle X-Ray 07/24/17 0000 Signed Impressions: CONCLUSION: Osteopenia of the bony structures with some mild degenerative changes at the mo rtise joint. Elbow X-Ray 07/21/17 0000 Signed Impressions: CONCLUSION: 1. New nonspecific soft tissue swelling at the elbow. 2. 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 No significant change compared to the prior study from 2017. Objective Remarks GENERAL: elderly male, in no apparent distress. CARDIOVASCULAR: Regular rate and regular rhythm without murmurs, gallops, or rubs. RESPIRATORY: Clear to auscultation. Breath sounds equal bilaterally. No wheezes , rales, or rhonchi. GASTROINTESTINAL: Abdomen soft, non-tender, nondistended. Normal, active bowel sounds MUSCULOSKELETAL:left elbow- with wound vac in place. NEURO: awake and alert Procedures Irrigation and debridement, excision of olecranon bursa left elbow Medications and IVs Inpatient Medications Acetaminophen (Tylenol) 650 mg UNSCH PRN PO for headach, pain, temp > 101F; Start 07/22/17 at 14:45 Acetaminophen/ Hydrocodone Bitart ([place] 5-325 Mg) 2 tab Q4H PRN PO PAIN 8-10 Last administered on 07/27/17at 17:57; Start 07/25/17 at 11:45 Albumin Human 100 ml @ 60 mls/hr UNSCH PRN IV WITH DIALYSIS Last administered on 07/26/17at 11:13; Start 07/22/17 at 14:45 Amiodarone HCl (Cordarone) 200 mg BID PO Last administered on 07/28/17at 08:17; Start 07/22/17 at 09:00 Bisacodyl (Dulcolax Supp) 10 mg DAILY PRN RECTAL SEVERE CONSITIPATION; Start at 20:00 Brimonidine Tartrate ([place] 0.2% Opt Soln) 1 drop Q12HR LEFT EYE Last administered on 07/28/17at 08:21; Start 07/22/17 at 09:00 Calcium Acetate (Phoslo) 667 mg TID PO Last administered on 07/28/17at 08:18; Start 07/22/17 at 09:00 Calcium Gluconate 1 gm/Sodium Chloride 100 ml @ 100 mls/hr ONCE ONCE IV ; Start 07/21/17 at 19:00; Stop 07/21/17 at 19:46; Status DC Cefazolin Sodium 1000 mg/Sodium Chloride 100 ml @ 200 mls/hr Q12H IV Last administered on 07/26/17at 01:10; Start 07/23/17 at 13:00; Stop 07/26/17 at 14:29 ; Status DC Cefazolin Sodium/ Dextrose 50 ml @ 100 mls/hr Q8H IV Last administered on 07/23at 01:04; Start 07/22/17 at 01:00; Stop 07/23/17 at 08:33; Status DC Ceftriaxone Sodium 2000 mg/ Sodium Chloride 100 ml @ 200 mls/hr Q24H IV Last administered on 07/27/17at 14:44; Start 07/26/17 at 15:00 Clonidine (Catapres) 0.1 mg UNSCH PRN PO for BP > 180/100 X 2 readings; Start 07/22/17 at 14:45 Dextrose (D50w (Syr) Inj) 25 ml ONCE ONCE IV PUSH ; Start 07/21/17 at 19:00; Stop 07/21/17 at 19:46; Status DC Digoxin (Lanoxin Inj) 0.5 mg ONCE ONCE IV PUSH Last administered on 07/23/17at 18:03; Start 07/23/17 at 16:30; Stop 07/23/17 at 16:31; Status DC Diltiazem HCl (Cardizem Cd) 180 mg DAILY PO ; Start 07/22/17 at 09:00; Status Future Hold Diphenhydramine HCl (Benadryl) 25 mg UNSCH PRN PO for hives/itching/anaphylaxis ; Start 07/22/17 at 14:45 Enalapril Maleate (Vasotec) 5 mg DAILY PO ; Start 07/22/17 at 09:00; Status Future Hold Gelatin (Gelfoam 12 Mm/7 Mm Top) 1 foam UNSCH PRN TOP SEE LABEL COMMENTS Last administered on 07/28/17at 10:31; Start 07/22/17 at 14:45 Gentamicin Sulfate (Gentamicin Inj) 20 mg UNSCH PRN OTHER WITH DIALYSIS; Start 07/22/17 at 14:45 Heparin Sodium (Porcine) (Heparin Inj) UNSCH PRN .XX WITH DIALYSIS; Start at 14:45 Hydromorphone HCl (Dilaudid Pf Inj) 0.5 mg NOW ONCE IV ; Start 07/22/17 at 21: 15; Stop 07/22/17 at 21:16; Status DC Lactulose (Lactulose Liq) 30 ml DAILY PRN PO SEVERE CONSITIPATION; Start at 20:00 Lidocaine/ Epinephrine (Xylocaine-Epi 1%-1:100,000 Inj) 50 ml ONCE ONCE INFIL ; Start 07/21/17 at 15:30; Stop 07/21/17 at 15:33; Status DC Magnesium Hydroxide (Milk Of Magnesia Liq) 30 ml Q12H PRN PO Mild constipation ; Start 07/21/17 at 20:00 Mannitol (Mannitol Inj) 12.5 gm UNSCH PRN IV WITH DIALYSIS; Start 07/22/17 at 14:45 Metoprolol Tartrate (Lopressor Inj) 2 mg NOW ONCE IV PUSH ; Start 07/22/17 at 21:15; Stop 07/22/17 at 21:16; Status DC Metoprolol Tartrate (Lopressor) 25 mg Q12HR PO ; Start 07/22/17 at 09:00; Status Future Hold Midodrine (Proamatine) 5 mg TID@07,12,17 PO Last administered on 07/28/17at 06: 16; Start 07/22/17 at 17:00 Miscellaneous Information ([facility]) ALL NURSING DEPARTME... UNSCH PRN .XX SEE LABEL COMMENTS; Start 07/22/17 at 21:15; Stop 07/23/17 at 21: 14; Status DC Morphine Sulfate (Morphine Inj) 2 mg Q4H PRN IV PUSH BREAKTHROUGH PAIN Last administered on 07/23/17at 01:32; Start 07/22/17 at 08:15 Naloxone HCl (Narcan Inj) 0.4 mg UNSCH PRN IV PUSH SEE LABEL COMMENTS; Start at 20:00 Nitroglycerin (Nitrostat Sl) 0.4 mg UNSCH PRN SL CHEST PAIN; Start 07/22/17 at 14:45 Non-Formulary Medication 1 drop BID LEFT EYE ; Start 07/22/17 at 09:00; Stop at 09:00; Status DC Ondansetron HCl (Zofran Odt) 4 mg UNSCH PRN PO WITH DIALYSIS; Start 07/22/17 at 15:15 Ondansetron HCl (Zofran Inj) 4 mg UNSCH PRN IV PUSH WITH DIALYSIS; Start at 14:45; Stop 07/22/17 at 15:10; Status DC Pantoprazole Sodium (Protonix) 20 mg DAILY PO Last administered on 07/28/17at 08 :17; Start 07/22/17 at 09:00 Patient Medication Teaching (Coumadin Booklet) 1 ONCE ONCE .XX ; Start at 16:00; Stop 07/24/17 at 16:01; Status DC Pharmacy Profile Note 0 ml @ 0 mls/hr UNSCH OTHER ; Start 07/24/17 at 12:00 Potassium Chloride (KCl) 40 meq ONCE ONCE PO ; Start 07/21/17 at 19:00; Stop at 19:46; Status DC Ropinirole HCl (Requip) 2 mg TID PO Last administered on 07/28/17at 08:18; Start 07/22/17 at 09:00 Sennosides (Senokot) 17.2 mg Q12H PRN PO Moderate constipation; Start 07/21/17 at 20:00 Sodium Chloride (NS Flush) 2 ml BID IV FLUSH Last administered on 07/28/17at 08: 18; Start 07/22/17 at 21:00 Temazepam (Restoril) 15 mg ONCE ONCE PO Last administered on 07/22/17at 03:52; Start 07/22/17 at 03:00; Stop 07/22/17 at 03:01; Status DC Timolol Maleate (Timoptic 0.5% Opt Sol) 1 drop Q12HR LEFT EYE Last administered on 07/28/17at 08:21; Start 07/22/17 at 09:00 Vancomycin HCl 1000 mg/Sodium Chloride 250 ml @ 250 mls/hr ONCE ONCE IV Last administered on 07/21/17at 16:36; Start 07/21/17 at 16:15; Stop 07/21/17 at 17:14 ; Status DC Vancomycin HCl 1500 mg/Sodium Chloride 515 ml @ 257.5 mls/ hr ONCE ONCE IV Last administered on 07/23/17at 21:03; Start 07/23/17 at 20:00; Stop 07/23/17 at 21:59; Status DC Warfarin Sodium (Coumadin) 2.5 mg DAILY@1600 PO ; Start 07/28/17 at 16:00 A/P Problem List: (1) Olecranon bursitis, left elbow ICD Code: M70.22 - Olecranon bursitis, left elbow (2) ESRD (end stage renal disease) on dialysis ICD Code: N18.6 - End stage renal failure on dialysis; Z99.2 - Dependence on renal dialysis Status: Acute (3) Atrial fibrillation Status: Chronic Assessment and Plan A/P Left elbow olecranon bursitis - s/p Irrigation and debridement, excision of olecranon bursa left elbow -wound vac management 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 -received a dose of Vancomycin on 07/21. staph bacteremia; on antibiotics as noted above- ID consulted.echo with severe aortic stenosis- no evidence of vegetation. ESRD -on HD- per nephrology. Atrial fibrillation - continue Amiodarone 200mg BID. - hold Cardizem and Metoprolol due to low-normal BP's. - resumed Coumadin. Hypotension; better- continue midodrine- hold cardizem and metoprolol for now. aortic stenosis- cardiology f/u appreciated; f/u as outpatient. DVT prophylaxis; on Coumadin. Discharge Planning dc to SNF within the next 24 hrs. see med list. f/u; pcp,cardiology,ortho and nephrology. d/w the patient, and case management. Problem Qualifiers (1) Atrial fibrillation: Qualified Codes: I48.2 - Chronic atrial fibrillation Ruby Nice MD July 28, 2017 12:40
--- NOTE | 2017-07-28 13:55 | HHI.IDPN ---
Subjective Subjective Remarks Patient seen and examined on behalf of Dr. Madden Mr. Valle is an 81-year-old male with past medical history significant for A. fib, history of cardiac ablation, history of pacemaker, end-stage renal disease on hemodialysis Wednesday. Of note patient appears to have had aspiration of the left elbow on July 09 with growth of staph lugdenensis. Patient reports that he has been following up with Dr. Gonzalez his orthopedic surgeon and was started on amoxicillin. Due to persistent swelling and pain in his left elbow patient presented to the emergency department on July 21, 2017. ED contacted Dr. Gonzalez his orthopedic surgeon and patient underwent incision and drainage of the abscess. Intra-Op cultures are pending. Patient also had blood cultures drawn on admission which are now positive for coag negative staph. At the time of my evaluation patient is admitted to the floor. Was alert opens his eyes and is able to provide me some brief history. Although does not appear to be very reliable. Per review of records it appears that he has a history of signing off AGAINST MEDICAL ADVICE in the past. Unsure if he was compliant with his medications as his medication administration record for home meds is not show amoxicillin as one of the meds for him. Infectious disease is consulted for evaluation and management of left elbow septic arthritis and staph coag negative bacteremia. Notes reviewed patient states he feels good. Reports he is very happy because he was able to take a few steps to the bed s/p HD today left elbow pain controlled no fever no chills no rash no dysuria reports chronic diarrhea, unchanged afebrile One BC with 2 diff Coag Neg Staph The other BC with Staph urealyticus Fluid C/S Staph lugdenensis x 2 separate wound cultures. Repeat blood culture negative 2D echo with no e/o vegetation Antibiotics IV Ceftriaxone Current Medications Medications (Trade) Dose Ordered Sig/Sara Route Start Time Stop Time Status Last Admin (Tylenol) 650 mg Q4H PRN PO 07/21/17 20:00 (Zofran Odt) 4 mg Q6H PRN PO 07/21/17 20:00 (Narcan Inj) 0.4 mg UNSCH PRN IV PUSH 07/21/17 20:00 (Milk Of Magnesia Liq) 30 ml Q12H PRN PO 07/21/17 20:00 (Senokot) 17.2 mg Q12H PRN PO 07/21/17 20:00 (Dulcolax Supp) 10 mg DAILY PRN RECTAL 07/21/17 20:00 (Lactulose Liq) 30 ml DAILY PRN PO 07/21/17 20:00 (Cordarone) 200 mg BID PO 07/22/17 09:00 07/28/17 08:17 (Phoslo) 667 mg TID PO 07/22/17 09:00 07/28/17 08:18 (Vasotec) 5 mg DAILY PO 07/22/17 09:00 Future Hold (Requip) 2 mg TID PO 07/22/17 09:00 07/28/17 08:18 (Protonix) 20 mg DAILY PO 07/22/17 09:00 07/28/17 08:17 (Lopressor) 25 mg Q12HR PO 07/22/17 09:00 Future Hold (Alphagan 0.2% Opth Soln) 1 drop Q12HR LEFT EYE 07/22/17 09:00 07/28/17 08:21 (Timoptic 0.5% Opth Soln) 1 drop Q12HR LEFT EYE 07/22/17 09:00 07/28/17 08:21 (Cardizem Cd) 180 mg DAILY PO 07/22/17 09:00 Future Hold (Morphine Inj) 2 mg Q4H PRN IV PUSH 07/22/17 08:15 07/23/17 01:32 (Proamatine) 5 mg TID@07,12,17 PO 07/22/17 17:00 07/28/17 06:16 Sodium Chloride 1,000 ml @ 0 mls/hr Q0M PRN OTHER 07/22/17 14:41 07/23/17 12:00 (Heparin Inj) 8,000 units UNSCH PRN IV FLUSH 07/22/17 14:45 Sodium Chloride 1,000 ml @ 200 mls/hr Q5H PRN IV 07/22/17 14:41 Sodium Chloride 1,000 ml @ 0 mls/hr Q0M PRN OTHER 07/22/17 14:41 (Mannitol Inj) 12.5 gm UNSCH PRN IV 07/22/17 14:45 Albumin Human 100 ml @ 60 mls/hr UNSCH PRN IV 07/22/17 14:45 07/26/17 11:13 (NS Flush) 5 ml UNSCH PRN IV FLUSH 07/22/17 14:45 (Heparin Inj) UNSCH PRN .XX 07/22/17 14:45 (Gentamicin Inj) 20 mg UNSCH PRN OTHER 07/22/17 14:45 (Tylenol) 650 mg UNSCH PRN PO 07/22/17 14:45 (Benadryl) 25 mg UNSCH PRN PO 07/22/17 14:45 (Nitrostat Sl) 0.4 mg UNSCH PRN SL 07/22/17 14:45 (Catapres) 0.1 mg UNSCH PRN PO 07/22/17 14:45 (Gelfoam 12 Mm/7 Mm Top) 1 foam UNSCH PRN TOP 07/22/17 14:45 07/28/17 10:31 (Zofran Odt) 4 mg UNSCH PRN PO 07/22/17 15:15 (NS Flush) 2 ml UNSCH PRN IV FLUSH 07/22/17 19:30 (NS Flush) 2 ml BID IV FLUSH 07/22/17 21:00 07/28/17 08:18 Pharmacy Profile Note 0 ml @ 0 mls/hr UNSCH OTHER 07/24/17 12:00 ([place] 5-325 Mg) 1 tab Q4H PRN PO 07/25/17 11:45 07/27/17 09:03 ([place] 5-325 Mg) 2 tab Q4H PRN PO 07/25/17 11:45 07/27/17 17:57 Ceftriaxone Sodium 2000 mg/ Sodium Chloride 100 ml @ 200 mls/hr Q24H IV 07/26/17 15:00 07/27/17 14:44 (Coumadin) 2.5 mg DAILY@1600 PO 07/28/17 16:00 Lines PIV no evidence of infection Past Medical History History of bursitis History of aspiration on July 09, 2017 of the left elbow: Cultures positive for staph ligamentous patient was being treated with reportedly amoxicillin per patient's report Past Surgical History Aspiration of the left elbow (Yeny Daly) Allergies: Coded Allergies: clindamycin (Verified Allergy, Severe, Rash, 07/21/17) ciprofloxacin (Verified Allergy, Unknown, 07/21/17) Objective . Vital Signs Date Time Temp Pulse Resp B/P (MAP) Pulse Ox O2 Delivery O2 Flow Rate FiO2 07/28/17 12:00 70 07/28/17 08:08 97.9 69 16 111/62 (78) 95 07/28/17 08:00 70 07/28/17 08:00 Nasal Cannula 2.00 07/28/17 04:10 97.3 70 16 99/60 (73) 95 07/28/17 04:00 70 07/28/17 00:11 70 07/27/17 23:00 97.8 72 16 110/58 (75) 100 07/27/17 20:30 97.6 70 17 105/57 (73) 99 Automatic Cuff 07/27/17 20:00 Nasal Cannula 2.00 07/27/17 19:46 70 07/27/17 18:36 99 Nasal Cannula 2.00 07/27/17 16:00 97.6 70 20 107/57 (74) 99 07/27/17 16:00 70 07/28/17 07/28/17 07/29/17 15:00 23:00 07:00 Output Total 2800 ml Balance -2800 ml Hemodialysis 2800 ml . Laboratory Tests Test 07/28/17 04:03 White Blood Count 6.4 TH/MM3 Red Blood Count 3.53 MIL/MM3 Hemoglobin 11.6 GM/DL Hematocrit 34.6 % Mean Corpuscular Volume 98.1 FL Mean Corpuscular Hemoglobin 33.0 PG Mean Corpuscular Hemoglobin Concent 33.6 % Red Cell Distribution Width 15.1 % Platelet Count 161 TH/MM3 Mean Platelet Volume 7.3 FL Laboratory Tests Test 07/28/17 04:03 Blood Urea Nitrogen 59 MG/DL Creatinine 7.28 MG/DL Random Glucose 77 MG/DL Albumin 2.4 GM/DL Calcium Level 8.1 MG/DL Phosphorus Level 4.5 MG/DL Sodium Level 138 MEQ/L Potassium Level 4.3 MEQ/L Chloride Level 98 MEQ/L Carbon Dioxide Level 29.2 MEQ/L Anion Gap 11 MEQ/L Estimat Glomerular Filtration Rate 7 ML/MIN Imaging Last Impressions Foot X-Ray 07/24/17 0000 Signed Impressions: CONCLUSION: Osteopenia of the bony structures with some primary degenerative changes at the first metatarsal-phalangeal joint. Ankle X-Ray 07/24/17 0000 Signed Impressions: CONCLUSION: Osteopenia of the bony structures with some mild degenerative changes at the mo rtise joint. Elbow X-Ray 07/21/17 0000 Signed Impressions: CONCLUSION: 1. New nonspecific soft tissue swelling at the elbow. 2. 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 No significant change compared to the prior study from 2017. Physical Exam GENERAL: WDWN elderly male patient, INAD. Awake and alert. Appears comfortable. SKIN: Cool and dry. + 1.5x1.5 circular open lesion on inner aspect of left lower leg with beefy red granulation tissue noted in wound bed. HEAD: Atraumatic. Normocephalic. No temporal or scalp tenderness. EYES: Pupils equal round and reactive. Extraocular motions intact. No scleral icterus. No injection or drainage. ENT: Nose without bleeding, purulent drainage or septal hematoma. Moist oral mucosa. NECK: Trachea midline.Supple, nontender, no meningeal signs. CARDIOVASCULAR: Murmur appreciated. RESPIRATORY: Clear to auscultation. Breath sounds equal bilaterally. No wheezes , rales, or rhonchi. GASTROINTESTINAL: Abdomen soft, non-tender, nondistended. MUSCULOSKELETAL: Left elbow with wound VAC in place. RUE with AV fistula NEUROLOGICAL: Awake and alert. Nonfocal exam. Psych cooperative IV line sites with no evidence of infection. (Yeny Daly) Assessment & Plan Remarks Left elbow septic arthritis status post irrigation and drainage. Wound vac in place. Left elbow aspiration with evidence of staph lugdunensis, pansensitive Staph coag negative bacteremia. Repeat BCX with no growth. 2D echo with no veg Open lesion LLE End-stage renal disease on hemodialysis using right upper extremity AV fistula( patient undergoes dialysis on Wednesday's) Hypotension ? cardiac meds induced. Less likely sepsis related. Recommendations Continue on IV Ceftriaxone Monitor progress Dw CM length of antibiotic therapy while in rehab Dw Dr. Nice (Yeny Daly) Remarks The exam, history, and the medical decision-making described in the above note were completed with the assistance of the mid-level provider. I reviewed and agree with the findings presented. I attest that I had a [id number] encounter with the patient on the same day, and personally performed and documented my assessment and findings in the medical record. DC home on Ceftriaxone IV Post hospital infusion orders in chart. PICC orders placed. Will sign off please call back if any change in clinical condition, discharge plan or questions (Ana Madden MD) Yeny Daly July 28, 2017 13:55 Ana Madden MD July 28, 2017 18:01
[2017-07-28] MEDS: WARFARIN SOD 2.5 MG TAB PO SCH (15:38)
[2017-07-28] MEDS: cefTRIAXone INJ 2,000 MG in SODIUM CHLORIDE 0.9% INJ 100 ML IV SCH (15:38)
--- NOTE | 2017-07-28 17:19 | HHI.NPPN ---
Subjective History of Present Illness The patient is an 81 yo [place] male who is known to our services for ESRD on HD. He presented to the ED on 523 with complaints of L elbow pain. He has had known bursitis and has been having aspirated periodically. The bursa had become more painful and red so the patient decided to come to the ED for eval. patient now status post I&D of same. Pus was found. Interval History Patient lying in bed in no distress. No verbal complaints. Review of Systems General Constitutional: Fatigue Objective Data Data 07/28/17 07/29/17 19:00 07:00 Output Total 2800 ml Balance -2800 ml Hemodialysis 2800 ml Vital Signs Date Time Temp Pulse Resp B/P (MAP) Pulse Ox O2 Delivery O2 Flow Rate FiO2 07/28/17 16:10 99 Nasal Cannula 3.00 07/28/17 13:20 98.0 70 18 112/64 (80) 96 07/28/17 12:00 70 07/28/17 08:08 97.9 69 16 111/62 (78) 95 07/28/17 08:00 70 07/28/17 08:00 Nasal Cannula 2.00 07/28/17 04:10 97.3 70 16 99/60 (73) 95 07/28/17 04:00 70 07/28/17 00:11 70 07/27/17 23:00 97.8 72 16 110/58 (75) 100 07/27/17 20:30 97.6 70 17 105/57 (73) 99 Automatic Cuff 07/27/17 20:00 Nasal Cannula 2.00 07/27/17 19:46 70 07/27/17 18:36 99 Nasal Cannula 2.00 -: 07/28/17 0403 07/28/17 0403 Physical Exam General Appearance: No Acute Distress, Comfortable Eyes Eye Exam: Sclera White Pulmonary Resp Exam: Clear Bilaterally, Breath Sounds Equal Cardiology CV Exam: Irregular, Murmur Gastrointestinal/Abdomen GI Exam: Soft, Non-Tender Integumentary Skin Exam: Clear, Warm Extremeties Extremities Exam: No Edema Neurologic Neuro Exam: Alert, Awake, Speech Clear Assessment/Plan Discussed Condition With: Patient Problem List: (1) ESRD (end stage renal disease) on dialysis ICD Codes: N18.6 - End stage renal failure on dialysis; Z99.2 - Dependence on renal dialysis Status: Acute Plan: Continue on HD MWF as before Continue midodrine. Continue on calcium acetate Patient has agreed to be discharged to a rehab facility which would appear to be appropriate in this situation. Patient does live alone. Medications should be adjusted for the patient's ESRD. Avoid gadolinium. (2) Hypotension ICD Codes: I95.9 - Hypotension, unspecified Plan: Improved with midodrine. Continue same. (3) Bacteremia ICD Codes: R78.81 - Bacteremia Status: Acute Plan: If outpatient abx to be required, can be given with HD but has to be arranged with case management and outpatient pharmacy as this is not a dialysis related infection. (4) Olecranon bursitis, left elbow ICD Codes: M70.22 - Olecranon bursitis, left elbow Plan: Management as per ortho (5) Atrial fibrillation with RVR ICD Codes: I48.91 - Unspecified atrial fibrillation Status: Acute Plan: Cardiology consult appreciated. To continue on amiodarone for the present. Blood pressure improved and heart rate is controlled on amiodarone. (6) Cognitive change ICD Codes: R41.89 - Other symptoms and signs involving cognitive functions and awareness Status: Chronic Plan: Resolved Appears to be back to baseline. Plan The exam, history, and the medical decision-making described in the above note were completed with the assistance of the EMA. I reviewed and agree with the findings presented. I attest that I had a [id number] encounter with the patient on the same day, and personally performed and documented my assessment and findings in the medical record. Alice Murcia MD July 28, 2017 17:19
[2017-07-28] MEDS ORDERED: SOLU250I IV PUSH (18:07)
[2017-07-28] MEDS ORDERED: EPIN1INJ21 IV PUSH (18:07)
[2017-07-28] MEDS ORDERED: EPIN1INJ21 SQ (18:07)
--- NOTE | 2017-07-28 18:16 | HHI.FF ---
Infusion Therapy Location of Infusion Therapy: [facility] Infusion Therapy Order Patient Information Appointment Date: July 28, 2017 Patient Weight 71 kg Diagnosis: Diagnosis Staph Lugdenensis infection, septic arthritis. Coded Allergies: clindamycin (Verified Allergy, Severe, Rash, 07/21/17) ciprofloxacin (Verified Allergy, Unknown, 07/21/17) Administer Medication Ceftriaxone 2 grams IV q 24 hours Start Treatment: July 28, 2017 Stop Treatment: Aug 28, 2017 Additional Information Venous access: Other (Midline or PICC Line) Additional Instructions [x] Peripheral flush and dressing changes per protocol [x] Implanted port and central on line csr: * Implanted port: 10 ml Normal Saline followed by 5 ml Heparin 100 units/ml Heparin flush after each use and monthly to maintain. [] May leave port accessed during therapy. [] May leave peripheral site accessed for duration of therapy. [x] If patient has SOB or respiratory distress, check oxygen saturation. If less than 90% or clinical signs of respiratory distress, administer oxygen at 2 L/min. via nasal cannula and notify physician. [x] Anaphylaxis/Reaction orders: * Stop infusion. * Keep IV line open with saline flush. * Notify physician. * Monitor vital signs every 15 minutes until symptoms resolve. * Check Oxygen saturation; Oxygen at 2 L/min. via nasal cannula if less than 90% or clinical signs of respiratory distress. * Administer diphenhydramine (Benadryl) 25 mg IV STAT, (unless patient has received as pre-med). May repeat once, if necessary. * Solu-Cortef 250 mg IVP over 30-60 seconds, use 100 mg vials for each dissolution. * Epinephrine (1mg/1 ml) 0.3 mg subcutaneously or IVP now with any signs of respiratory distress. * Check with physician for new additional pre-med orders if patient is re- challenged or re-treated. [x] May remove PICC line when treatment complete, after confirming with Physician. [x] If the patient is admitted to the hospital, the ED, or transferred via [facility] , complete transfer form including medication reconciliation order sheet. Laboratory Tests Weekly Labs: CBC w/diff, Creatinine, LFT's (Hepatic function test) Additional Information Please draw weekly labs , fax labs to numbers below and Call with abnormals, change in clinical condition or problems to: Dr.Reba Prince or or covering ID Physician Follow up appt: Patient to schedule follow up appt with Dr.Reba Prince within 2 weeks post discharge. Follow up with PCP Follow up with other MDs as planned. Counseling: Counseled about medication side effects Counseled about PICC line care and hand hygiene. Ana Madden MD July 28, 2017 18:16
[2017-07-29] VITALS (13 sets, daily range): BP systolic 98–117; BP diastolic 52–59; PULSE 64–73; RESP 16–18; TEMP 97.1–98.4; O2SAT 95–100
[2017-07-29 05:20] LABS: INTERNATIONAL NORMALIZED RATIO 2.2 RATIO; PROTHROMBIN TIME - PATIENT 22.5 SEC (9.8-11.6)
[2017-07-29] MEDS: MIDODRINE 5 MG TAB PO SCH ×3 (06:27→18:47)
[2017-07-29] MEDS: CALCIUM ACETATE 667 MG CAP PO SCH ×3 (09:19→18:47)
[2017-07-29] MEDS: AMIODARONE 200 MG TAB PO SCH ×2 (09:19→20:30)
[2017-07-29] MEDS: PANTOPRAZOLE SOD 20 MG DELAYED RELEASE TAB PO SCH (09:19)
[2017-07-29] MEDS: SODIUM CHLORIDE 0.9% FLUSH 10 ML FLUSH IV FLUSH SCH ×2 (09:20→20:30)
[2017-07-29] MEDS: TIMOLOL MALEATE 0.5% OPHT SOLN 5 ML BTL LEFT EYE SCH ×2 (09:20→20:30)
[2017-07-29] MEDS: BRIMONIDINE TARTRATE 0.2% OPHT SOLN 5 ML BTL LEFT EYE SCH ×2 (09:20→20:30)
--- NOTE | 2017-07-29 10:54 | HHI.PR ---
Subjective Remarks Feels good, no complaints, however this morning, patient had scant red blood per rectum after wiping. Per patient, this is chronic, he has a history of internal and external hemorrhoids. Objective Vitals Vital Signs Date Time Temp Pulse Resp B/P (MAP) Pulse Ox O2 Delivery O2 Flow Rate FiO2 07/29/17 08:08 98.0 70 17 117/56 (76) 96 07/29/17 04:47 97.8 73 16 108/56 (73) 95 07/29/17 03:47 71 07/29/17 00:00 Nasal Cannula 2.00 07/29/17 00:00 98.0 70 18 108/52 (70) 99 07/28/17 23:40 70 07/28/17 22:01 97 Nasal Cannula 2.00 07/28/17 19:56 70 07/28/17 19:53 97.9 70 18 154/66 (95) 99 07/28/17 19:53 Nasal Cannula 2.00 07/28/17 16:10 99 Nasal Cannula 3.00 07/28/17 16:08 98.0 56 18 108/60 (76) 99 07/28/17 16:00 75 07/28/17 13:20 98.0 70 18 112/64 (80) 96 07/28/17 12:00 70 I/O 07/28/17 07/28/17 07/28/17 07/29/17 07/29/17 07/29/17 07:00 15:00 23:00 07:00 15:00 23:00 Intake Total 240 ml 480 ml 480 ml Output Total 0 ml 2800 ml 1 ml 0 ml Balance 240 ml -2800 ml 479 ml 480 ml Intake Oral 240 ml 380 ml 480 ml IV Total 100 ml Output Urine Total 0 ml 1 ml 0 ml Hemodialysis 2800 ml # Bowel Movements 2 0 0 Result Diagram: 07/28/17 04007/28/17 040 Objective Remarks GENERAL: elderly male, in no apparent distress. CARDIOVASCULAR: Regular rate and regular rhythm without murmurs, gallops, or rubs. RESPIRATORY: Clear to auscultation. Breath sounds equal bilaterally. No wheezes , rales, or rhonchi. GASTROINTESTINAL: Abdomen soft, non-tender, nondistended. Normal, active bowel sounds MUSCULOSKELETAL:left elbow- with wound vac in place. 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 Discharged today to rehab. staph bacteremia; on antibiotics as noted above- ID consulted.echo with severe aortic stenosis- no evidence of vegetation. ESRD -on HD- per nephrology. Atrial fibrillation - continue Amiodarone 200mg BID. Blood pressure stable. - resumed Coumadin. Hypotension; better- continue midodrine- hold cardizem and metoprolol for now. aortic stenosis- cardiology f/u appreciated; f/u as outpatient. Scant bright red blood per rectum-likely secondary to hemorrhoids, chronic, may be followed up as outpatient, check CBC, if stable, for discharge today. DVT prophylaxis; on Coumadin. Problem Qualifiers (1) Atrial fibrillation: Qualified Codes: I48.2 - Chronic atrial fibrillation Olga Ramirez MD July 29, 2017 10:53
[2017-07-29 11:00] LABS: AUTOMATED NEUTROPHIL # 5.1 TH/MM3 (1.8-7.7); BASOPHIL # 0.1 TH/MM3 (0-0.2); BASOPHIL % 1.4 % (0.0-2.0); EOSINOPHIL # 0.2 TH/MM3 (0-0.4); EOSINOPHIL % 2.7 % (0.0-4.0); HEMATOCRIT 35.2 % (39.0-51.0); HEMOGLOBIN 11.9 GM/DL (13.0-17.0); LYMPH % 9.2 % (9.0-44.0); LYMPHOCYTE # 0.6 TH/MM3 (1.0-4.8); MEAN CELL VOLUME 97.1 FL (80.0-100.0); MEAN CORPUSCULAR HEMOGLOBIN 32.7 PG (27.0-34.0); MEAN CORPUSCULAR HGB CONC 33.7 % (32.0-36.0); MEAN PLATELET VOLUME 7.4 FL (7.0-11.0); MONO % 11.8 % (0.0-8.0); MONOCYTE # 0.8 TH/MM3 (0-0.9); NEUT % 74.9 % (16.0-70.0); PLATELET COUNT 186 TH/MM3 (150-450); RED BLOOD COUNT 3.62 MIL/MM3 (4.50-5.90); RED CELL DISTRIBUTION WIDTH 15.3 % (11.6-17.2); WHITE BLOOD COUNT 6.8 TH/MM3 (4.0-11.0)
[2017-07-29 11:12] LABS: BICARBONATE 29.8 MEQ/L (21.0-32.0); CALCIUM 8.2 MG/DL (8.5-10.1); CREATININE 6.34 MG/DL (0.60-1.30)
--- NOTE | 2017-07-29 11:57 | HHI.DS ---
Discharge Summary Admission Date July 21, 2017 at 19:53 Discharge Date: July 29, 2017 Admitting Diagnosis Septic bursitis, lactic acidosis (1) Olecranon bursitis, left elbow ICD Code: M70.22 - Olecranon bursitis, left elbow Diagnosis: Principal (2) ESRD (end stage renal disease) on dialysis ICD Code: N18.6 - End stage renal failure on dialysis; Z99.2 - Dependence on renal dialysis Diagnosis: Secondary Status: Acute (3) Atrial fibrillation Diagnosis: Secondary Status: Chronic Procedures Irrigation and debridement, excision of olecranon bursa left elbow Brief History - From Admission Mr. Valle is an 81-year-old male with a history of bursitis status post incision and drainage, ESRD on dialysis Wednesday who presents to the emergency department on 07/21/2017 due to left elbow pain swelling and redness. He denies any chest pain, shortness of breath, fever or chills. Denies any lightheadedness or dizziness. He went to his dialysis center and was advised to come to the emergency department due to his left elbow swelling and pain. He does admit that in the last few days his left elbow has been more swollen and painful as well as some drainage. ED provider contacted orthopedic surgeon who will evaluate patient in the morning for possible surgical I&D. CBC/BMP: 07/29/17 1040 07/29/17 1040 Significant Findings Laboratory Tests Test 07/27/17 05:45 07/28/17 04:03 07/29/17 03:35 07/29/17 10:40 Prothrombin Time 29.2 SEC (9.8-11.6) 27.5 SEC (9.8-11.6) 22.5 SEC (9.8-11.6) Red Blood Count 3.53 MIL/MM3 (4.50-5.90) 3.62 MIL/MM3 (4.50-5.90) Hemoglobin 11.6 GM/DL (13.0-17.0) 11.9 GM/DL (13.0-17.0) Hematocrit 34.6 % (39.0-51.0) 35.2 % (39.0-51.0) Blood Urea Nitrogen 59 MG/DL (7-18) 43 MG/DL (7-18) Creatinine 7.28 MG/DL (0.60-1.30) 6.34 MG/DL (0.60-1.30) Albumin 2.4 GM/DL (3.4-5.0) Calcium Level 8.1 MG/DL (8.5-10.1) 8.2 MG/DL (8.5-10.1) Estimat Glomerular Filtration Rate 7 ML/MIN (>89) 8 ML/MIN (>89) Neutrophils (%) (Auto) 74.9 % (16.0-70.0) Monocytes (%) (Auto) 11.8 % (0.0-8.0) Lymphocytes # (Auto) 0.6 TH/MM3 (1.0-4.8) PE at Discharge GENERAL: elderly male, in no apparent distress. CARDIOVASCULAR: Regular rate and regular rhythm without murmurs, gallops, or rubs. RESPIRATORY: Clear to auscultation. Breath sounds equal bilaterally. No wheezes , rales, or rhonchi. GASTROINTESTINAL: Abdomen soft, non-tender, nondistended. Normal, active bowel sounds MUSCULOSKELETAL:left elbow- with wound vac in place. NEURO: awake and alert Hospital Course Mr. Valle is an 81-year-old male with a history of bursitis status post incision and drainage, ESRD on dialysis Wednesday who presents to the emergency department on 07/21/2017 due to left elbow pain swelling and redness. Orthopedics was consulted, s/p Irrigation and debridement, excision of olecranon bursa left elbow, wound VAC was placed. Infectious disease was consulted, patient was initially started on Ancef, switched to ceftriaxone to finish August 28, 2017. Patient will be discharged to rehab. Blood culture grew Staphylococcus, echo was unremarkable other than severe aortic stenosis. No evidence of vegetation. He will continue dialysis. For his atrial fibrillation , he was placed on amiodarone, Toprol and Cardizem were discontinued because of hypotension. He will continue Coumadin. He needs to follow-up with cardiology as outpatient for his aortic stenosis. He also had scant bright red blood per rectum but hemoglobin is stable. He has chronic hemorrhoids, his CBC might need to be followed to make sure that this is improving. Pt Condition on Discharge: Good Discharge Disposition: Discharge to SNF Discharge Time: > 30 minutes Discharge Instructions DIET: Follow Instructions for: Renal Failure Diet Activities you can perform: Weight Bearing as Anselmo Activities to Avoid: Lifting/Bending Follow up Referrals: Appointment for Follow Up - 2 Weeks @ [facility] with Dr.Reba Suresh [facility] PCP Follow-up New Medications: Ceftriaxone Inj (Ceftriaxone Inj) 2 Gram Inj 2 GM IV Q24H for Infection for 30 Days, VIAL 0 Refills Epinephrine Inj (Epinephrine Inj) 1 Mg/Ml (1 Ml) Inj 0.3 MG IV PUSH ONCE PRN for ALLERGIC REACTION, #1 VIAL Epinephrine Inj (Epinephrine Inj) 1 Mg/Ml (1 Ml) Inj 0.3 MG SQ ONCE PRN for ALLERGIC REACTION, #1 VIAL Give with any signs of respiratory distress. Hydrocortisone Inj (Solu-Cortef Inj) 250 Mg/2 Ml Inj 250 MG IV PUSH ONCE PRN for ALLERGIC REACTION, #1 VIAL 0 Refills Give over 30-60 seconds. Hydrocodone/Acetaminophen (Hydrocodone-Acetamin 5-325 mg) 5 Mg-325 Mg Tablet 1 TAB PO Q4H PRN for pain, #12 TAB 0 Refills Midodrine (Midodrine) 5 Mg Tab 5 MG PO TID@07,12,17 for hypotension for 30 Days, TAB 0 Refills Continued Medications: Alpha Lipoic Acid (Alpha Lipoic Acid) 200 Mg Cap 200 MG PO DIRECTED for Nutritional Supplement, CAP 0 Refills Amiodarone (Amiodarone) 200 Mg Tab 1 TAB PO BID for Regulate Heart Beat, #60 TAB 0 Refills Ascorbic Acid (Vitamin C) 250 Mg Tab 300 MG PO for Nutritional Supplement, TAB 0 Refills B-Complex W/ C & Folic Acid (Dialyvite 800) 1 Tab 1 TAB PO DAILY Brimonidine-Timolol Opth Drops (Combigan Opth Drops) 0.2-0.5% Soln 1 DROP LEFT EYE BID for Glaucoma, BOTTLE 0 Refills Calcium Acetate (Phosphate Binder) (Calcium Acetate (Phosphate Binder)) 667 Mg Cap 1 CAP PO TID for Hyperphosphatemia, #180 CAP 0 Refills Dorzolamide Opth Drops (Dorzolamide Opth Drops) 2% Soln 1 DROP LEFT EYE BID for Glaucoma, #1 BOTTLE 0 Refills Levothyroxine (Levothyroxine) 50 Mcg Tab 1 TAB PO DAILY for Thyroid, #30 TAB 0 Refills Omeprazole (Omeprazole) 20 Mg Cap 1 CAP PO DAILY Ropinirole (Requip) 2 Mg Tab 2 MG PO TID, #90 TAB 0 Refills Walker with Front Wheels (Walker with Front Wheels) 1 Mis Mis EA .ROUTE DIRECTED, #1 0 Refills Warfarin (Warfarin) 5 Mg Tab 1 TAB PO DAILY for Blood Clot Prevention, #30 TAB 0 Refills Discontinued Medications: Diltiazem CD 24 HR (Cardizem CD 24 HR) 180 Mg Caper 180 MG PO BID, #30 CAP 0 Refills Enalapril (Enalapril) 5 Mg Tab 5 MG PO DAILY, #30 TAB 0 Refills Metoprolol Succinate ER 24 HR (Metoprolol Succinate ER 24 HR) 50 Mg Tab 0.5 TAB PO BID, #30 TAB 0 Refills Olga Ramirez MD July 29, 2017 11:57
[2017-07-29] MEDS: WARFARIN SOD 2.5 MG TAB PO SCH (15:29)
[2017-07-29] MEDS: cefTRIAXone INJ 2,000 MG in SODIUM CHLORIDE 0.9% INJ 100 ML IV SCH (15:29)
[2017-07-29] MEDS ORDERED: VANCOMYCIN INJ 1,100 MG in SODIUM CHLOR 0.9% 250 ML INJ 250 ML IV ONE (17:15)
[2017-07-29] MEDS ORDERED: VANC750I IV (17:19)
--- NOTE | 2017-07-29 17:22 | HHI.FF ---
cc: Tracie Prince MD Infusion Therapy Location of Infusion Therapy: Dialysis Center Patient Information Appointment Date: Jul 30, 2017 Patient Weight 72.5 kg Diagnosis: Diagnosis Staph Lugdenensis septic arthritis ESRD on HD Coded Allergies: clindamycin (Verified Allergy, Severe, Rash, 07/21/17) ciprofloxacin (Verified Allergy, Unknown, 07/21/17) Administer Medication Vancomycin 1100 mg IV on days of Hemodialysis ,Wed,Wed. Start Treatment: July 29, 2017 Stop Treatment: Aug 28, 2017 Additional Information Venous access: Other (HD access site) Additional Instructions [x] Peripheral flush and dressing changes per protocol [x] Implanted port and central commercial lines underwriter: * Implanted port: 10 ml Normal Saline followed by 5 ml Heparin 100 units/ml Heparin flush after each use and monthly to maintain. [] May leave port accessed during therapy. [] May leave peripheral site accessed for duration of therapy. [x] If patient has SOB or respiratory distress, check oxygen saturation. If less than 90% or clinical signs of respiratory distress, administer oxygen at 2 L/min. via nasal cannula and notify physician. [x] Anaphylaxis/Reaction orders: * Stop infusion. * Keep IV line open with saline flush. * Notify physician. * Monitor vital signs every 15 minutes until symptoms resolve. * Check Oxygen saturation; Oxygen at 2 L/min. via nasal cannula if less than 90% or clinical signs of respiratory distress. * Administer diphenhydramine (Benadryl) 25 mg IV STAT, (unless patient has received as pre-med). May repeat once, if necessary. * Solu-Cortef 250 mg IVP over 30-60 seconds, use 100 mg vials for each dissolution. * Epinephrine (1mg/1 ml) 0.3 mg subcutaneously or IVP now with any signs of respiratory distress. * Check with physician for new additional pre-med orders if patient is re- challenged or re-treated. [x] May remove PICC line when treatment complete, after confirming with Physician. [x] If the patient is admitted to the hospital, the ED, or transferred via [facility] , complete transfer form including medication reconciliation order sheet. Laboratory Tests Weekly Labs: CBC w/diff, Creatinine, CRP, LFT's (Hepatic function test), Vancomycin Trough (maintain trough 15-20) Ana Madden MD July 29, 2017 17:22
--- NOTE | 2017-07-29 17:23 | HHI.IDPN ---
Subjective Subjective Remarks Mr. Valle is an 81-year-old male with past medical history significant for A. fib, history of cardiac ablation, history of pacemaker, end-stage renal disease on hemodialysis Wednesday. Of note patient appears to have had aspiration of the left elbow on July 09 with growth of staph lugdenensis. Patient reports that he has been following up with Dr. Gonzalez his orthopedic surgeon and was started on amoxicillin. Due to persistent swelling and pain in his left elbow patient presented to the emergency department on July 21, 2017. ED contacted Dr. Gonzalez his orthopedic surgeon and patient underwent incision and drainage of the abscess. Intra-Op cultures are pending. Patient also had blood cultures drawn on admission which are now positive for coag negative staph. At the time of my evaluation patient is admitted to the floor. Was alert opens his eyes and is able to provide me some brief history. Although does not appear to be very reliable. Per review of records it appears that he has a history of signing off AGAINST MEDICAL ADVICE in the past. Unsure if he was compliant with his medications as his medication administration record for home meds is not show amoxicillin as one of the meds for him. Infectious disease is consulted for evaluation and management of left elbow septic arthritis and staph coag negative bacteremia. Notes reviewed patient states he feels good. s/p HD today left elbow pain controlled no fever no chills no rash no dysuria Antibiotics IV Ceftriaxone Lines PIV no evidence of infection Past Medical History History of bursitis History of aspiration on July 09, 2017 of the left elbow: Cultures positive for staph ligamentous patient was being treated with reportedly amoxicillin per patient's report Past Surgical History Aspiration of the left elbow Allergies: Coded Allergies: clindamycin (Verified Allergy, Severe, Rash, 07/21/17) ciprofloxacin (Verified Allergy, Unknown, 07/21/17) Objective . Vital Signs Date Time Temp Pulse Resp B/P (MAP) Pulse Ox O2 Delivery O2 Flow Rate FiO2 07/29/17 12:08 98.1 70 18 111/57 (75) 95 07/29/17 12:00 Nasal Cannula 2.00 07/29/17 11:09 2.00 07/29/17 08:08 98.0 70 17 117/56 (76) 96 07/29/17 08:00 Nasal Cannula 2.00 07/29/17 04:47 97.8 73 16 108/56 (73) 95 07/29/17 03:47 71 07/29/17 00:00 Nasal Cannula 2.00 07/29/17 00:00 98.0 70 18 108/52 (70) 99 07/28/17 23:40 70 07/28/17 22:01 97 Nasal Cannula 2.00 07/28/17 19:56 70 07/28/17 19:53 97.9 70 18 154/66 (95) 99 07/28/17 19:53 Nasal Cannula 2.00 . Laboratory Tests Test 07/28/17 04:03 07/29/17 10:40 White Blood Count 6.4 TH/MM3 6.8 TH/MM3 Red Blood Count 3.53 MIL/MM3 3.62 MIL/MM3 Hemoglobin 11.6 GM/DL 11.9 GM/DL Hematocrit 34.6 % 35.2 % Mean Corpuscular Volume 98.1 FL 97.1 FL Mean Corpuscular Hemoglobin 33.0 PG 32.7 PG Mean Corpuscular Hemoglobin Concent 33.6 % 33.7 % Red Cell Distribution Width 15.1 % 15.3 % Platelet Count 161 TH/MM3 186 TH/MM3 Mean Platelet Volume 7.3 FL 7.4 FL Neutrophils (%) (Auto) 74.9 % Lymphocytes (%) (Auto) 9.2 % Monocytes (%) (Auto) 11.8 % Eosinophils (%) (Auto) 2.7 % Basophils (%) (Auto) 1.4 % Neutrophils # (Auto) 5.1 TH/MM3 Lymphocytes # (Auto) 0.6 TH/MM3 Monocytes # (Auto) 0.8 TH/MM3 Eosinophils # (Auto) 0.2 TH/MM3 Basophils # (Auto) 0.1 TH/MM3 CBC Comment DIFF FINAL Differential Comment Laboratory Tests Test 07/28/17 04:03 07/29/17 10:40 Blood Urea Nitrogen 59 MG/DL 43 MG/DL Creatinine 7.28 MG/DL 6.34 MG/DL Random Glucose 77 MG/DL 99 MG/DL Albumin 2.4 GM/DL Calcium Level 8.1 MG/DL 8.2 MG/DL Phosphorus Level 4.5 MG/DL Sodium Level 138 MEQ/L 141 MEQ/L Potassium Level 4.3 MEQ/L 4.2 MEQ/L Chloride Level 98 MEQ/L 100 MEQ/L Carbon Dioxide Level 29.2 MEQ/L 29.8 MEQ/L Anion Gap 11 MEQ/L 11 MEQ/L Estimat Glomerular Filtration Rate 7 ML/MIN 8 ML/MIN Imaging Last Impressions Foot X-Ray 07/24/17 Signed Impressions: CONCLUSION: Osteopenia of the bony structures with some primary degenerative changes at the first metatarsal-phalangeal joint. Ankle X-Ray 07/24/17 Signed Impressions: CONCLUSION: Osteopenia of the bony structures with some mild degenerative changes at the mo rtise joint. Elbow X-Ray 07/21/17 0000 Signed Impressions: CONCLUSION: 1. New nonspecific soft tissue swelling at the elbow. 2. 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 No significant change compared to the prior study from 2017. Physical Exam GENERAL: elderly male patient. Awake and alert. Appears comfortable. SKIN: Cool and dry. + 1.5x1.5 circular open lesion on inner aspect of left lower leg with beefy red granulation tissue noted in wound bed. HEAD: Atraumatic. Normocephalic. No temporal or scalp tenderness. EYES: Pupils equal round and reactive. Extraocular motions intact. No scleral icterus. No injection or drainage. ENT: Nose without bleeding, purulent drainage or septal hematoma. Moist oral mucosa. NECK: Trachea midline.Supple, nontender, no meningeal signs. CARDIOVASCULAR: Murmur appreciated. RESPIRATORY: Clear to auscultation. Breath sounds equal bilaterally. No wheezes , rales, or rhonchi. GASTROINTESTINAL: Abdomen soft, non-tender, nondistended. MUSCULOSKELETAL: Left elbow with wound VAC in place. RUE with AV fistula NEUROLOGICAL: Awake and alert. Nonfocal exam. Psych cooperative IV line sites with no evidence of infection. Assessment & Plan Remarks Left elbow septic arthritis status post irrigation and drainage. Left elbow aspiration with evidence of staph lugdunensis Staph coag negative bacteremia. End-stage renal disease on hemodialysis using right upper extremity AV fistula( patient undergoes dialysis on Wednesday's) Hypotension ? cardiac meds induced. Less likely sepsis related. Recommendations DC Ceftriaxone IV 2D ECHO negative Vanco 110 mg IV x 1 dose now and 1 before discharge in HD tomorrow. Vanco 1100 mg IV in HD sessions on Wed,Wed,Wed. dw CM and new orders placed for HD infusion of vanco IV. NO PICC/Midline needed. Follow cultures Monitor progress Discussed with CM If there is a delay in discharge please call me as Vanco IV will be dosed by ID in HD. Ana Madden MD July 29, 2017 17:23
--- NOTE | 2017-07-29 19:15 | HHI.NPPN ---
Subjective History of Present Illness The patient is an 81 yo [place] male who is known to our services for ESRD on HD. He presented to the ED on 523 with complaints of L elbow pain. He has had known bursitis and has been having aspirated periodically. The bursa had become more painful and red so the patient decided to come to the ED for eval. patient now status post I&D of same. Pus was found. Interval History Pt eating dinner Discharge has been scheduled for tomorrow after HD Going to the [facility] Objective Data Data Vital Signs Date Time Temp Pulse Resp B/P (MAP) Pulse Ox O2 Delivery O2 Flow Rate FiO2 07/29/17 17:35 95 Nasal Cannula 2.00 07/29/17 16:08 97.9 70 18 116/53 (74) 97 07/29/17 12:08 98.1 70 18 111/57 (75) 95 07/29/17 12:00 Nasal Cannula 2.00 07/29/17 11:09 2.00 07/29/17 08:08 98.0 70 17 117/56 (76) 96 07/29/17 08:00 Nasal Cannula 2.00 07/29/17 04:47 97.8 73 16 108/56 (73) 95 07/29/17 03:47 71 07/29/17 00:00 Nasal Cannula 2.00 07/29/17 00:00 98.0 70 18 108/52 (70) 99 07/28/17 23:40 70 07/28/17 22:01 97 Nasal Cannula 2.00 07/28/17 19:56 70 07/28/17 19:53 97.9 70 18 154/66 (95) 99 07/28/17 19:53 Nasal Cannula 2.00 -: 07/29/17 1040 07/29/17 1040 Imaging Last Impressions Foot X-Ray 07/24/17 0000 Signed Impressions: CONCLUSION: Osteopenia of the bony structures with some primary degenerative changes at the first metatarsal-phalangeal joint. Ankle X-Ray 07/24/17 0000 Signed Impressions: CONCLUSION: Osteopenia of the bony structures with some mild degenerative changes at the mo rtise joint. Elbow X-Ray 07/21/17 0000 Signed Impressions: CONCLUSION: 1. New nonspecific soft tissue swelling at the elbow. 2. 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 No significant change compared to the prior study from 2017. Medication Review Current Medications Medications (Trade) Dose Ordered Sig/Sara Route Start Time Stop Time Status Last Admin (Tylenol) 650 mg Q4H PRN PO 07/21/17 20:00 (Zofran Odt) 4 mg Q6H PRN PO 07/21/17 20:00 (Narcan Inj) 0.4 mg UNSCH PRN IV PUSH 07/21/17 20:00 (Milk Of Magnesia Liq) 30 ml Q12H PRN PO 07/21/17 20:00 (Senokot) 17.2 mg Q12H PRN PO 07/21/17 20:00 (Dulcolax Supp) 10 mg DAILY PRN RECTAL 07/21/17 20:00 (Lactulose Liq) 30 ml DAILY PRN PO 07/21/17 20:00 (Cordarone) 200 mg BID PO 07/22/17 09:00 07/29/17 09:19 (Phoslo) 667 mg TID PO 07/22/17 09:00 07/29/17 18:47 (Vasotec) 5 mg DAILY PO 07/22/17 09:00 Future Hold (Requip) 2 mg TID PO 07/22/17 09:00 07/29/17 18:47 (Protonix) 20 mg DAILY PO 07/22/17 09:00 07/29/17 09:19 (Lopressor) 25 mg Q12HR PO 07/22/17 09:00 Future Hold (Alphagan 0.2% Opth Soln) 1 drop Q12HR LEFT EYE 07/22/17 09:00 07/29/17 09:20 (Timoptic 0.5% Opth Soln) 1 drop Q12HR LEFT EYE 07/22/17 09:00 07/29/17 09:20 (Cardizem Cd) 180 mg DAILY PO 07/22/17 09:00 Future Hold (Morphine Inj) 2 mg Q4H PRN IV PUSH 07/22/17 08:15 07/23/17 01:32 (Proamatine) 5 mg TID@07,12,17 PO 07/22/17 17:00 07/29/17 18:47 Sodium Chloride 1,000 ml @ 0 mls/hr Q0M PRN OTHER 5/24/18 14:41 07/23/17 12:00 (Heparin Inj) 8,000 units UNSCH PRN IV FLUSH 07/22/17 14:45 Sodium Chloride 1,000 ml @ 200 mls/hr Q5H PRN IV 07/22/17 14:41 Sodium Chloride 1,000 ml @ 0 mls/hr Q0M PRN OTHER 07/22/17 14:41 (Mannitol Inj) 12.5 gm UNSCH PRN IV 07/22/17 14:45 Albumin Human 100 ml @ 60 mls/hr UNSCH PRN IV 07/22/17 14:45 07/26/17 11:13 (NS Flush) 5 ml UNSCH PRN IV FLUSH 07/22/17 14:45 (Heparin Inj) UNSCH PRN .XX 07/22/17 14:45 (Gentamicin Inj) 20 mg UNSCH PRN OTHER 07/22/17 14:45 (Tylenol) 650 mg UNSCH PRN PO 07/22/17 14:45 (Benadryl) 25 mg UNSCH PRN PO 07/22/17 14:45 (Nitrostat Sl) 0.4 mg UNSCH PRN SL 07/22/17 14:45 (Catapres) 0.1 mg UNSCH PRN PO 07/22/17 14:45 (Gelfoam 12 Mm/7 Mm Top) 1 foam UNSCH PRN TOP 07/22/17 14:45 07/28/17 10:31 (Zofran Odt) 4 mg UNSCH PRN PO 07/22/17 15:15 (NS Flush) 2 ml UNSCH PRN IV FLUSH 07/22/17 19:30 (NS Flush) 2 ml BID IV FLUSH 07/22/17 21:00 07/29/17 09:20 Pharmacy Profile Note 0 ml @ 0 mls/hr UNSCH OTHER 07/24/17 12:00 (Tolley 5-325 Mg) 1 tab Q4H PRN PO 07/25/17 11:45 07/27/17 09:03 (Tolley 5-325 Mg) 2 tab Q4H PRN PO 07/25/17 11:45 07/27/17 17:57 (Coumadin) 2.5 mg DAILY@1600 PO 07/28/17 16:00 07/29/17 15:29 Vancomycin HCl 1100 mg/Sodium Chloride 511 ml @ 250 mls/hr WITH DIALYSIS ONCE IV 07/30/17 17:15 07/30/17 19:17 Physical Exam General Appearance: No Acute Distress, Comfortable Eyes Eye Exam: Sclera White Pulmonary Resp Exam: Clear Bilaterally, Breath Sounds Equal Cardiology CV Exam: Irregular, Murmur Gastrointestinal/Abdomen GI Exam: Soft, Non-Tender Integumentary Skin Exam: Clear, Warm Extremeties Extremities Exam: No Edema Neurologic Neuro Exam: Alert, Awake, Speech Clear Assessment/Plan Discussed Condition With: Patient Problem List: (1) ESRD (end stage renal disease) on dialysis ICD Codes: N18.6 - End stage renal failure on dialysis; Z99.2 - Dependence on renal dialysis Status: Acute Plan: HD here in the AM and then discharge to the [facility] Medications should be adjusted for the patient's ESRD. Avoid gadolinium. (2) Hypotension ICD Codes: I95.9 - Hypotension, unspecified Plan: Improved with midodrine. Continue same. (3) Bacteremia ICD Codes: R78.81 - Bacteremia Status: Acute Plan: We can administer Vancomycin at outpatient dialysis, but this needs to be arranged at outpatient pharmacy prior to discharge as this is not a dialysis related infection. Please arrange prior to discharge on 07/30/17 (4) Olecranon bursitis, left elbow ICD Codes: M70.22 - Olecranon bursitis, left elbow Plan: Management as per ortho (5) Atrial fibrillation with RVR ICD Codes: I48.91 - Unspecified atrial fibrillation Status: Acute Plan: Cardiology consult appreciated. To continue on amiodarone for the present. Blood pressure improved and heart rate is controlled on amiodarone. (6) Cognitive change ICD Codes: R41.89 - Other symptoms and signs involving cognitive functions and awareness Status: Chronic Plan: Resolved Appears to be back to baseline. Verena Arita July 29, 2017 19:15
[2017-07-30] VITALS: PULSE 70
[2017-07-30 04:00] VITALS: PULSE 72
[2017-07-30 04:02] VITALS: BP 104/56; PULSE 70; RESP 16; TEMP 98.1; O2SAT 100
[2017-07-30] MEDS: MIDODRINE 5 MG TAB PO SCH ×2 (05:52→14:30)
[2017-07-30 07:31] LABS: INTERNATIONAL NORMALIZED RATIO 2.1 RATIO; PROTHROMBIN TIME - PATIENT 20.9 SEC (9.8-11.6)
--- NOTE | 2017-07-30 07:46 | PD.ORT.PN ---
Subjective Subjective Remarks POD #8 Irrigation and debridement, excision of olecranon bursa left elbow, application wound vac Pt is awake and alert. Admits he has no left elbow pain. Dressing was removed for examination. Pt going to rehab today. Objective Vitals Vital Signs Date Time Temp Pulse Resp B/P (MAP) Pulse Ox O2 Delivery O2 Flow Rate FiO2 07/30/17 04:02 98.1 70 16 104/56 (72) 100 07/30/17 04:00 72 07/30/17 00:00 70 07/29/17 23:35 98.4 70 16 116/59 (78) 100 07/29/17 20:39 97.1 72 16 98/54 (69) 97 07/29/17 20:00 64 07/29/17 19:00 97 Nasal Cannula 2.00 07/29/17 17:35 95 Nasal Cannula 2.00 07/29/17 16:08 97.9 70 18 116/53 (74) 97 07/29/17 16:00 Nasal Cannula 2.00 07/29/17 15:41 70 07/29/17 12:08 98.1 70 18 111/57 (75) 95 07/29/17 12:00 Nasal Cannula 2.00 07/29/17 11:46 70 07/29/17 11:09 2.00 07/29/17 08:08 98.0 70 17 117/56 (76) 96 07/29/17 08:00 Nasal Cannula 2.00 I/O 07/29/17 07/29/17 07/29/17 07/30/17 07/30/17 07/30/17 07:00 15:00 23:00 07:00 15:00 23:00 Intake Total 480 ml 420 ml 0 ml Output Total 0 ml 0 ml Balance 480 ml 420 ml 0 ml Intake Oral 480 ml 420 ml 0 ml Output Urine Total 0 ml 0 ml # Voids 6 # Bowel Movements 0 1 2 Result Diagram: 07/29/17 1040 07/29/17 1040 Other Results Laboratory Tests Test 07/30/17 05:14 Prothromb Time International Ratio 2.1 RATIO Prothrombin Time 20.9 SEC (9.8-11.6) Imaging Last Impressions Elbow X-Ray 07/21/17 0000 Signed Impressions: CONCLUSION: 1. New nonspecific soft tissue swelling at the elbow. 2. 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 No significant change compared to the prior study from 2017. Procedures 07/22/17 Irrigation and debridement, excision of olecranon bursa left elbow, application wound vac Objective Remarks LUE: sutures are in good position, incision has healed well, no drainage, minimal fluctuance noted, slight purple hue to skin, no erythema, no cellulitic signs, no pain with ROM of elbow, good cap refill, NVI Assessment & Plan Problem List: (1) Infection of left olecranon bursa ICD Codes: M71.122 - Other infective bursitis, left elbow Status: Acute Assessment and Plan POD #8 Irrigation and debridement, excision of olecranon bursa left elbow, application wound vac Ortho status stable, progress rehab ROM LUE. Cx grew out staph species, Abx per infectious disease. D/C Sutures, cleanse with alcohol, apply steris. No wound care needed at this point. Clear for d/c from an orthopedic standpoint. F/U with Dr Gonzalez or myself in 1-2 weeks. Jenny Vidal Jul 30, 2017 07:46
[2017-07-30] MEDS: AMIODARONE 200 MG TAB PO SCH (07:56)
[2017-07-30] MEDS: PANTOPRAZOLE SOD 20 MG DELAYED RELEASE TAB PO SCH (07:56)
[2017-07-30] MEDS: SODIUM CHLORIDE 0.9% FLUSH 10 ML FLUSH IV FLUSH SCH (07:56)
[2017-07-30] MEDS: CALCIUM ACETATE 667 MG CAP PO SCH ×2 (07:56→14:30)
[2017-07-30] MEDS: TIMOLOL MALEATE 0.5% OPHT SOLN 5 ML BTL LEFT EYE SCH (07:57)
[2017-07-30] MEDS: BRIMONIDINE TARTRATE 0.2% OPHT SOLN 5 ML BTL LEFT EYE SCH (07:57)
[2017-07-30 08:00] VITALS: PULSE 69
[2017-07-30 12:00] VITALS: BP 114/57; PULSE 70; RESP 18; TEMP 97.2; O2SAT 97
[2017-07-30] MEDS ORDERED: SODIUM CHLORID 0.9% IV ONE (17:15)
[2017-07-30] MEDS ORDERED: VANCOMYCIN IV ONE (17:15)
--- NOTE | 2017-07-30 18:26 | HHI.PR ---
Subjective Remarks 81-year-old male who has septic bursitis of his left elbow. He states that he had surgery and at the elbow is feeling much better on antibiotics. Objective Vitals Vital Signs Date Time Temp Pulse Resp B/P (MAP) Pulse Ox O2 Delivery O2 Flow Rate FiO2 07/30/17 12:00 97.2 70 18 114/57 (76) 97 07/30/17 12:00 Nasal Cannula 2.00 07/30/17 12:00 70 07/30/17 11:38 2.00 07/30/17 08:00 Nasal Cannula 2.00 07/30/17 08:00 69 07/30/17 04:02 98.1 70 16 104/56 (72) 100 07/30/17 04:00 72 07/30/17 00:00 70 07/29/17 23:35 98.4 70 16 116/59 (78) 100 07/29/17 20:39 97.1 72 16 98/54 (69) 97 07/29/17 20:00 64 07/29/17 19:00 97 Nasal Cannula 2.00 I/O 07/29/17 07/29/17 07/29/17 07/30/17 07/30/17 07/30/17 06:59 14:59 22:59 06:59 14:59 22:59 Intake Total 480 ml 420 ml 0 ml Output Total 0 ml 0 ml 3000 ml Balance 480 ml 420 ml 0 ml -3000 ml Intake Oral 480 ml 420 ml 0 ml Output Urine Total 0 ml 0 ml Hemodialysis 3000 ml # Voids 6 # Bowel Movements 0 1 2 Result Diagram: 07/29/17 1040 07/29/17 1040 Objective Remarks GENERAL: Well-nourished, well-developed patient. SKIN: Warm and dry. HEAD: Normocephalic. EYES: No scleral icterus. No injection or drainage. NECK: Supple, trachea midline. No JVD or lymphadenopathy. CARDIOVASCULAR: Regular rate and rhythm without murmurs, gallops, or rubs. RESPIRATORY: Breath sounds equal bilaterally. No accessory muscle use. GASTROINTESTINAL: Abdomen soft, non-tender, nondistended. EXTREMITIES: No cyanosis, or edema. Elbow appears red with Steri-Strips in place, appears as resolving infection NEUROLOGICAL: Awake, alert, and oriented x 3. Non-focal. Procedures Irrigation and debridement, excision of olecranon bursa left elbow A/P Problem List: (1) Olecranon bursitis, left elbow ICD Code: M70.22 - Olecranon bursitis, left elbow (2) ESRD (end stage renal disease) on dialysis ICD Code: N18.6 - End stage renal failure on dialysis; Z99.2 - Dependence on renal dialysis Status: Acute (3) Atrial fibrillation Status: Chronic Assessment and Plan Left elbow olecranon bursitis s/p Irrigation and debridement, excision of olecranon bursa left elbow Patient was previously discharged on Rocephin and is awaiting rehab placement Staph bacteremia Likely from bursitis continue as above ESRD Hemodialysis scheduled per nephrology Atrial fibrillation Continue Amiodarone 200mg BID Continue Coumadin Hypotension Continue Midodrine aortic stenosis follow up outpatient with cardiology 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 Discharge Planning Patient discharged yesterday awaiting placement at rehab today Problem Qualifiers (1) Atrial fibrillation: Qualified Codes: I48.2 - Chronic atrial fibrillation Bret Patricio MD Jul 30, 2017 18:26
== END 2017-07-30 15:11 | DRG 500 ==
LOC: NEPC 14:54 → NEDA 19:53 → NEDH 07-22 02:09 → N04A 07-22 11:45
PROVIDERS: ADMIT Family Medicine; ATTEND Family Medicine
PROC: 0MB40ZZ Excision of Left Elbow Bursa and Ligament, Open Approach (ICD-10-PCS; principal; 2017-07-22 18:23)
PROC: 5A1D70Z Performance of Urinary Filtration, Intermittent, Less than 6 Hours Per Day (ICD-10-PCS; 2017-07-23)
DX: M71.122 Other infective bursitis, left elbow (principal); N18.6 End stage renal disease; I95.89 Other hypotension; B95.7 Other staphylococcus as the cause of diseases classified elsewhere; I12.0 Hypertensive chronic kidney disease with stage 5 chronic kidney disease or end stage renal disease; I48.2 Chronic atrial fibrillation; L97.929 Non-pressure chronic ulcer of unspecified part of left lower leg with unspecified severity; G25.81 Restless legs syndrome; E03.9 Hypothyroidism, unspecified; E21.3 Hyperparathyroidism, unspecified; Z79.01 Long term (current) use of anticoagulants; Z95.0 Presence of cardiac pacemaker; Z99.2 Dependence on renal dialysis; R41.89 Other symptoms and signs involving cognitive functions and awareness; H40.9 Unspecified glaucoma; I35.0 Nonrheumatic aortic (valve) stenosis; K64.9 Unspecified hemorrhoids; K52.9 Noninfective gastroenteritis and colitis, unspecified; Z85.828 Personal history of other malignant neoplasm of skin
CPT/HCPCS: 73080; 73610; 73630; 80048; 80053; 80069; 82310; 83605; 84100; 84155; 85025; 85027; 85610; 85730; 86140; 86403; 87015; 87040; 87070; 87077; 87102; 87116; 87186; 87205; 87206; 90935; 93005; 93306; 96361; 96365; 96374; J0690; J0696; J1160; J1170; J2270; J2370; J2405; J3010; J3370; J7030; J7040; J7050; P9047